=== PATIENT | female | born 1955 | race African-American/Black ===

== ENCOUNTER 2017-11-26 17:27 | Emergency (ER) | payer BC | END 2017-11-26 19:04 | disposition home or self-care (01) | LOC: ER 17:27 | DX: M25.561 Pain in right knee (principal); I10 Essential (primary) hypertension; E11.9 Type 2 diabetes mellitus without complications | CPT/HCPCS: 73564; 99284 ==

== ENCOUNTER → 2018-02-18 | Outpatient (CLI) | payer BC ==
[2017-11-26 17:32] VITALS: BP 129/62
[~2018-02-18] MED LIST: DICL100G18 TP; TRAM50TA PO
--- NOTE | 2018-02-18 13:26 | KCIC ---
Clinical Indications: History of hypertension, right carotid bruit. Exam : Carotid Duplex with Grayscale Ultrasound and Spectral and Color Doppler Analysis: PQRS Compliance Statement - Stenosis calculations for CT, MR and conventional angiography are based upon measurement of the distal ICA diameter in accordance with the NASCET methodology. Stenosis calculations for carotid ultrasound studies are derived from validated velocity criteria which are known to correlate with the NASCET methodology. Comparison study: None available. Findings: The common, internal and external carotid arteries were examined by grayscale, color and spectral Doppler ultrasound. Moderate atherosclerotic calcifications identified in the bilateral common carotid arteries and the carotid bulbs. There is moderate to severe atherosclerosis identified in the right external carotid artery. Moderate atherosclerotic calcifications identified in the bilateral internal carotid arteries. Flow in both vertebral arteries was antegrade and normal. The following are the velocities and ratios in the carotid arteries on both sides: RIGHT ICA PV: 127cm/sec RIGHT CCA PV: 80cm/sec RIGHT ICA ED: 51cm/sec RIGHT IC/CCPV: 1.38 RIGHT VERTEBRAL: antegrade flow RIGHT % STENOSIS: 50-69% LEFT ICA PV: 142cm/sec LEFT CCA PV: 93cm/sec LEFT ICA ED: 45cm/sec LEFT IC/CCPV: 1.46 LEFT VERTEBRAL: antegrade flow LEFT % STENOSIS: 50-69% <50% ICA Stenosis: PSV < 125cm/s (EDV < 40cm/s; SVR < 2.0) 50-69% ICA Stenosis: PSV < 125-229cm/s (EDV 40-99cm/s; SVR 2.0-3.9) >70% ICA Stenosis: PSV > 230cm/s (EDV >100cm/s; SVR >4.0) Increased velocity identified in the bilateral external carotid arteries measuring 423 cm/s on the right and 230 cm/s on the left. Incidental note of right thyroid nodule is identified measuring 1.2 cm. Impression: 1. Moderate atherosclerotic calcifications identified in the bilateral internal carotid arteries with 50-69% stenosis bilaterally. 2. Incidental right thyroid nodule measuring 1.2 cm. Follow-up ultrasound thyroid can be useful. Electronically signed by: Jl Lyman MD (02/18/2018 1:22 PM) [facility]
== END | disposition home or self-care (01) ==
LOC: KCIC US 12:24
PROVIDERS: ATTEND Internal Medicine
DX: I65.23 Occlusion and stenosis of bilateral carotid arteries (principal); E04.1 Nontoxic single thyroid nodule; I10 Essential (primary) hypertension; E11.9 Type 2 diabetes mellitus without complications
CPT/HCPCS: 93880

== ENCOUNTER 2018-04-09 13:44 | Inpatient (IN) | payer BC ==
[~2018-04-09] VITALS: Ht 170.2 cm; Wt 83.6 kg
[2018-04-09] MEDS ORDERED: ASPIRIN CHEWABLE 81 MG TABLET. PO ONE (15:00)
[2018-04-09] MEDS ORDERED: NITROGLYCERIN SUBLINGUAL 0.4 MG BOTTLE OF 25. SL PRN (15:00)
[2018-04-09 15:18] LABS: BASO # 0.1 x10^3/uL (0.0-0.2); BASO % 1 % (0-3); EOS # 0.1 x10^3/uL (0.0-0.7); EOS % 1 % (0-3); HEMATOCRIT 29.4 % (36.0-47.0); HEMOGLOBIN 10.1 g/dL (12.0-15.5); LYMPH # 3.6 x10^3/uL (1.0-4.8); LYMPH % 27 % (24-48); MEAN CORPUSCULAR HEMOGLOBIN 28 pg (25-35); MEAN CORPUSCULAR HGB CONC 35 g/dL (31-37); MEAN CORPUSCULAR VOLUME 82 fL (79-100); MONO % 8 % (0-9); NEUT # 8.7 x10^3uL (1.8-7.7); NEUT % 64 % (31-73); PLATELET COUNT 286 x10^3/uL (140-400); RED BLOOD COUNT 3.57 x10^6/uL (3.50-5.40); RED CELL DISTRIBUTION WIDTH 14.9 % (11.5-14.5); WHITE BLOOD COUNT 13.5 x10^3/uL (4.0-11.0)
[2018-04-09 15:31] LABS: CALCIUM 9.4 mg/dL (8.5-10.1); POTASSIUM 3.8 mmol/L (3.5-5.1)
--- NOTE | 2018-04-09 15:33 | EKG ---
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
[2018-04-09 15:34] LABS: PROTHROMBIN TIME PATIENT 12.3 SEC (11.7-14.0)
[2018-04-09 15:37] LABS: ALBUMIN 3.3 g/dL (3.4-5.0); ALBUMIN/GLOBULIN RATIO 0.8 (1.0-1.7); MAGNESIUM 1.7 mg/dL (1.8-2.4); TOTAL BILIRUBIN 0.3 mg/dL (0.2-1.0); TOTAL PROTEIN 7.4 g/dL (6.4-8.2)
--- NOTE | 2018-04-09 16:11 | RAD ---
PORTABLE CHEST 1V Clinical Indication: Left side chest pain radiating to left arm Comparison: None. Findings: The cardiomediastinal silhouette is normal. Lungs are clear. There is no pneumothorax. No pleural effusion is appreciated. No acute bone abnormality. IMPRESSION: No acute cardiopulmonary process. Electronically signed by: Alejandro Rodas MD (04/09/2018 4:07 PM) [facility]
[2018-04-09] MEDS ORDERED: MORPHINE SULFATE 10 MG/ML VIAL. IV ONE (17:00)
[2018-04-09 17:50] LABS: BILIRUBIN,URINE NEGATIVE (NEG); CLARITY,URINE CLEAR; COLOR,URINE YELLOW; NITRITE,URINE NEGATIVE (NEG); PH,URINE 6.5; PROTEIN,URINE NEGATIVE (NEG-TRACE)
[2018-04-09 17:55] LABS: BARBITURATES NEG (NEG); BENZODIAZEPINES NEG (NEG); CANNABINOIDS POS (NEG); COCAINE NEG (NEG); METHADONE NEG (NEG); OPIATES NEG (NEG); PHENCYCLIDINE NEG (NEG)
[2018-04-09 17:56] LABS: AMPHETAMINE/METHAMPHETAMINE NEG (NEG)
[2018-04-09 18:01] LABS: RBC,URINE 0 /HPF (0-2)
[2018-04-09 18:02] LABS: BACTERIA,URINE FEW /HPF (0-FEW); SQUAMOUS EPITHELIAL CELL,UR FEW /LPF
--- NOTE | 2018-04-09 18:03 | PHYS DOC ---
Past Medical History Past Medical History: Diabetes-Type I, Diabetes-Type II, High Cholesterol, Hypertension, Vascular Disease, Other Additional Past Medical Histor: Eating chocolate,"Starts allergies up." Past Surgical History: Hysterectomy, Tonsillectomy Additional Past Surgical Histo: L)Femoral bypass, L)jaw repair Additional Information: 07/16 to 07/14 PPD. Alcohol Use: Rarely Drug Use: None Adult General Chief Complaint Chief Complaint: CHEST PAIN HPI HPI Patient is a 62 year old female with history of diabetes type 2, hypertension, high cholesterol, who presents today complaining of a 9 out of 10 sharp left sided chest pain worse on coughing and deep breaths that began yesterday. Patient states the pain is relieved by not coughing as well as applying pressure to her chest when she coughs. Patient denies any pain radiating to her back. Denies any fever. She states she went to urgent care and they sent her to the ED to be evaluated. Review of Systems Review of Systems Constitutional: Denies fever or chills [] Eyes: Denies change in visual acuity, redness, or eye pain [] HENT: Denies nasal congestion or sore throat [] Respiratory: Denies cough or shortness of breath [] Cardiovascular: Reports left-sided chest pain worse on coughing and deep breaths GI: Denies abdominal pain, nausea, vomiting, bloody stools or diarrhea [] : Denies dysuria or hematuria [] Musculoskeletal: Denies back pain or joint pain [] Integument: Denies rash or skin lesions [] Neurologic: Denies headache, focal weakness or sensory changes [] All other systems were reviewed and found to be within normal limits, except as documented in this note. Current Medications Current Medications Current Medications Medications (Trade) Dose Ordered Sig/[facility] Start Time Stop Time Status Last Admin Dose Admin Aspirin (Children'S Aspirin) 162 mg 1X ONCE 04/09/18 15:00 04/09/18 15:01 DC 04/09/18 18:05 162 MG Nitroglycerin (Nitrostat) 0.4 mg PRN Q5MIN PRN 04/09/18 15:00 04/10/18 14:59 Allergies Allergies Physical Exam Physical Exam Constitutional: Well developed, well nourished, no acute distress, non-toxic appearance. [] HENT: Normocephalic, atraumatic, bilateral external ears normal, oropharynx moist, no oral exudates, nose normal. [] Eyes: PERRLA, EOMI, conjunctiva normal, no discharge. [] Neck: Normal range of motion, no tenderness, supple, no stridor. [] Cardiovascular:Heart rate regular rhythm, no murmur. Reproducible left sided chest pain on coughing and deep breaths. Lungs & Thorax: Bilateral breath sounds clear to auscultation [] Abdomen: Bowel sounds normal, soft, no tenderness, no masses, no pulsatile masses. [] Skin: Warm, dry, no erythema, no rash. [] Back: No tenderness, no CVA tenderness. [] Extremities: No tenderness, no cyanosis, no clubbing, ROM intact, no edema. [] Neurologic: Alert and oriented X 3, normal motor function, normal sensory function, no focal deficits noted. [] Psychologic: Affect normal, judgement normal, mood normal. [] Current Patient Data Vital Signs Vital Signs Date Time Temp Pulse Resp B/P (MAP) Pulse Ox O2 Delivery O2 Flow Rate FiO2 04/09/18 16:20 78 20 145/62 (89) 99 Room Air 04/09/18 14:09 98.3 98.3 Lab Values Laboratory Tests Test 04/09/18 14:30 04/09/18 15:05 Sodium Level 147 mmol/L (136-145) H Potassium Level 3.8 mmol/L (3.5-5.1) Chloride Level 107 mmol/L (98-107) Carbon Dioxide Level 28 mmol/L (21-32) Anion Gap 12 (6-14) Blood Urea Nitrogen 14 mg/dL (7-20) Creatinine 1.0 mg/dL (0.6-1.0) Estimated GFR (Cockcroft-Gault) 68.0 BUN/Creatinine Ratio 14 (6-20) Glucose Level 125 mg/dL (70-99) H Calcium Level 9.4 mg/dL (8.5-10.1) Magnesium Level 1.7 mg/dL (1.8-2.4) L Total Bilirubin 0.3 mg/dL (0.2-1.0) Aspartate Amino Transferase (AST) 16 U/L (15-37) Alanine Aminotransferase (ALT) 16 U/L (14-59) Alkaline Phosphatase 121 U/L (46-116) H Troponin I Quantitative < 0.017 ng/mL (0.000-0.055) CH-Fjx-N-Type Natriuretic Peptide 131 pg/mL (0-124) H Total Protein 7.4 g/dL (6.4-8.2) Albumin 3.3 g/dL (3.4-5.0) L Albumin/Globulin Ratio 0.8 (1.0-1.7) L White Blood Count 13.5 x10^3/uL (4.0-11.0) H Red Blood Count 3.57 x10^6/uL (3.50-5.40) Hemoglobin 10.1 g/dL (12.0-15.5) L Hematocrit 29.4 % (36.0-47.0) L Mean Corpuscular Volume 82 fL (79-100) Mean Corpuscular Hemoglobin 28 pg (25-35) Mean Corpuscular Hemoglobin Concent 35 g/dL (31-37) Red Cell Distribution Width 14.9 % (11.5-14.5) H Platelet Count 286 x10^3/uL (140-400) Neutrophils (%) (Auto) 64 % (31-73) Lymphocytes (%) (Auto) 27 % (24-48) Monocytes (%) (Auto) 8 % (0-9) Eosinophils (%) (Auto) 1 % (0-3) Basophils (%) (Auto) 1 % (0-3) Neutrophils # (Auto) 8.7 x10^3uL (1.8-7.7) H Lymphocytes # (Auto) 3.6 x10^3/uL (1.0-4.8) Monocytes # (Auto) 1.0 x10^3/uL (0.0-1.1) Eosinophils # (Auto) 0.1 x10^3/uL (0.0-0.7) Basophils # (Auto) 0.1 x10^3/uL (0.0-0.2) Prothrombin Time 12.3 SEC (11.7-14.0) Prothrombin Time INR 1.0 (0.8-1.1) Laboratory Tests 04/09/18 15:05 Laboratory Tests 04/09/18 14:30 EKG EKG 13:[address] Tavares sinus rhythm HR 81 no STEMI[] Radiology/Procedures Radiology/Procedures []PROCEDURE: PORTABLE CHEST 1V PORTABLE CHEST 1V Clinical Indication: Left side chest pain radiating to left arm Comparison: None. Findings: The cardiomediastinal silhouette is normal. Lungs are clear. There is no pneumothorax. No pleural effusion is appreciated. No acute bone abnormality. IMPRESSION: No acute cardiopulmonary process. Electronically signed by: Alejandro Rodas MD (04/09/2018 4:07 PM) [facility] DICTATED and SIGNED BY: ALEJANDRO RODAS MD DATE: 04/09/18 9220 Course & Med Decision Making Course & Med Decision Making Pertinent Labs and Imaging studies reviewed. (See chart for details) This is a 62-year-old female patient who presents to the ED today with complaints of chest pain that is worsened on deep breaths and coughing that began yesterday. Patient's cardiac workup is negative for any acute findings and place. Patient pain sound like pleuritic chest pain. Heart score [address] Savage who accepted patient for admission. Routine consult placed for cardiology. CTA Chest pending on admission. Nursing staff will contact PCP if positive or Cardiology Dragon Disclaimer Dragon Disclaimer This electronic medical record was generated, in whole or in part, using a voice recognition dictation system. Departure Departure Impression: Primary Impression: Chest pain Disposition: ADMITTED INPATIENT Condition: STABLE Referrals: JOSELO SAVAGE MD (PCP) Problem Qualifiers Primary Impression: Chest pain Chest pain type: unspecified Qualified Codes: R07.9 - Chest pain, unspecified EVI OLMEDO TITLE SUPERVISOR Apr 09, 2018 18:02
[2018-04-09] MEDS ORDERED: DEXTROSE 50% 25 GM / 50ML DISP.SYRIN. IV PRN (18:15)
[2018-04-09] MEDS ORDERED: ONDANSETRON PF 4 MG/2 ML VIAL. IV PRN (18:15)
[2018-04-09] MEDS ORDERED: ACETAMINOPHEN 325 MG TABLET. PO PRN (18:15)
[2018-04-09] MEDS ORDERED: MORPHINE SULFATE 4 MG/ML VIAL. IV PRN (18:15)
[2018-04-09] MEDS ORDERED: IOHEXOL 300 MG/ML 100ML VIAL. IV ONE (18:45)
[2018-04-09] MEDS ORDERED: MAGNESIUM SULFATE 2GM 50 ML IV ONE (19:00)
[2018-04-09] MEDS ORDERED: CONTRAST GIVEN. MC PRN (19:00)
[2018-04-09 20:17] VITALS: BP 153/66
[2018-04-09] MEDS ORDERED: INSULIN GLARGINE 300 UNITS/3 ML INSULN.PEN. SQ SCH (21:00)
[2018-04-09] MEDS ORDERED: ACET325T9 PO (21:46)
[2018-04-09] MEDS ORDERED: ASPI81TA50 PO (21:46)
[2018-04-09] MEDS ORDERED: CLOP75TA PO (21:46)
[2018-04-09] MEDS ORDERED: PRAV40TA2 PO (21:46)
[2018-04-09] MEDS ORDERED: INSU300I SQ (21:46)
[2018-04-09] MEDS ORDERED: DIPH25CA58 PO (21:46)
[2018-04-09] MEDS ORDERED: GLIM4TAB2 PO (21:46)
[2018-04-09] MEDS ORDERED: LOSA1TAB25 PO (21:46)
[2018-04-09] MEDS ORDERED: METF10007 PO (21:46)
[2018-04-09] MEDS ORDERED: TOUJEO SQ SCH ×2 (22:00)
[2018-04-09] MEDS: SIMVASTATIN 40 MG TABLET. PO SCH (22:02)
--- NOTE | 2018-04-09 22:59 | RAD ---
Chest CTA History: Chest pain Technique: After bolus of intravenous contrast, CT imaging was performed of the chest. Multiplanar reconstruction images to include MIP reconstruction images are submitted. Exposure: One or more of the following individualized dose reduction techniques were utilized for this examination: 1. Automated exposure control 2. Adjustment of the mA and/or kV according to patient size 3. Use of iterative reconstruction technique. Contrast: 75 cc Omnipaque 300 Comparison: None Findings: [ ] No convincing pulmonary embolism is identified, more distal branches as well as the upper lobe branches not as well opacified with contrast for accurate evaluation. There is more confluent left upper lobe infiltrate with air bronchograms, overall size about 4.9 cm AP by 3.2 cm transverse. There is prominent coronary calcification. Thoracic aortic caliber is within normal limits without intraluminal flap. There is no pericardial or pleural fluid or pneumothorax. Major airways are patent. There are left hilar node about 0.9 cm short axis dimension. There may be mild wall thickening of the esophagus. Impression: 1. No convincing pulmonary embolism is identified, limited evaluation of the more distal branches as well as of the upper lobe branches on this exam. 2. There is more confluent left upper lobe infiltrate. Short-term follow-up after treatment such is within 1-2 months is advised to exclude underlying lesion. 3. There is prominent coronary calcification. 4. There is possible mild esophageal wall thickening, can be associated with esophagitis. Electronically signed by: Edi Bai MD (04/09/2018 10:55 PM) [facility]
[2018-04-09 23:49] VITALS: BP 185/76
[2018-04-10] VITALS (8 sets, daily range): BP systolic 137–157; BP diastolic 54–86
[2018-04-10 06:28] LABS: BASO # 0.1 x10^3/uL (0.0-0.2); BASO % 1 % (0-3); CALCIUM 8.5 mg/dL (8.5-10.1); EOS # 0.2 x10^3/uL (0.0-0.7); EOS % 1 % (0-3); HEMATOCRIT 27.1 % (36.0-47.0); HEMOGLOBIN 9.5 g/dL (12.0-15.5); LYMPH % 27 % (24-48); MEAN CORPUSCULAR HEMOGLOBIN 29 pg (25-35); MEAN CORPUSCULAR HGB CONC 35 g/dL (31-37); MEAN CORPUSCULAR VOLUME 83 fL (79-100); MONO # 1.1 x10^3/uL (0.0-1.1); MONO % 10 % (0-9); NEUT # 6.9 x10^3uL (1.8-7.7); NEUT % 62 % (31-73); PLATELET COUNT 271 x10^3/uL (140-400); POTASSIUM 3.6 mmol/L (3.5-5.1); RED BLOOD COUNT 3.28 x10^6/uL (3.50-5.40); RED CELL DISTRIBUTION WIDTH 14.8 % (11.5-14.5); WHITE BLOOD COUNT 11.3 x10^3/uL (4.0-11.0)
[2018-04-10 06:35] LABS: MAGNESIUM 2.1 mg/dL (1.8-2.4)
[2018-04-10 06:36] LABS: CHOLESTEROL/HDL RATIO 3.8
[2018-04-10] MEDS ORDERED: INSULIN LISPRO 300 UNITS/3 ML INSULN.PEN. SQ SCH (08:00)
[2018-04-10] MEDS ORDERED: glyBURIDE 5 MG TABLET PO SCH (08:00)
[2018-04-10] MEDS ORDERED: ASPIRIN CHEWABLE 81 MG TABLET. PO SCH (08:00)
[2018-04-10] MEDS ORDERED: GLIMEPIRIDE 2 MG TABLET. PO SCH (09:00)
[2018-04-10] MEDS: LOSARTAN POTASSIUM 50 MG TABLET. PO SCH (09:32)
[2018-04-10] MEDS: CLOPIDOGREL BISULFATE 75 MG TABLET PO SCH (09:33)
[2018-04-10] MEDS: hydroCHLOROthiazide 12.5 MG CAPSULE PO SCH (09:33)
[2018-04-10] MEDS ORDERED: guaiFENesin DM 200MG/20MG 10 ML SYRUP PO PRN (10:15)
[2018-04-10] MEDS ORDERED: HYDROcodone/APAP 5/325MG 1 TAB TABLET PO PRN (10:15)
--- NOTE | 2018-04-10 10:34 | PDOC ---
Provider Note Provider Note history and physical dictated # [id number] JOSELO MAHMOOD MD Apr 10, 2018 10:34
--- NOTE | 2018-04-10 10:50 | CONS ---
DATE OF CONSULTATION: 04/09/2018 REASON FOR CONSULTATION: Chest pain. HISTORY OF PRESENT ILLNESS: The patient is a pleasant 62-year-old woman with past medical history as noted below, who presented to the ER in the setting of pain with deep inspiration. She had also been coughing and reported that the pain resolved after her coughing stopped. She denies any exertional dyspnea, orthopnea, PND or lower extremity edema. She has not had any angina. In this setting, she underwent a CT of the chest, which was suggestive of possible infiltrate, but no obvious pulmonary embolus. She was noted to have significant coronary artery calcifications. PAST MEDICAL HISTORY: 1. Peripheral arterial disease, status post left fem-pop bypass. 2. Hypertension. 3. Diabetes with last hemoglobin A1c of 6.2, according to the patient. 4. Dyslipidemia. 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 She does smoke. FAMILY HISTORY: Noncontributory. ALLERGIES: CHOCOLATE and ESTROGENS as listed. CURRENT CARDIAC MEDICATIONS: 1. Hydrochlorothiazide 12.5 mg daily. 2. Losartan 100 mg daily. 3. Aspirin 81 mg daily. 4. Plavix 75 mg daily. 5. Simvastatin 40 mg daily. REVIEW OF SYSTEMS: Negative for 10 out of 14 systems reviewed, unless otherwise mentioned above in HPI. PHYSICAL EXAMINATION: VITAL SIGNS: Afebrile, pulse 74, BP 156/76, respiratory rate 17, pulse ox 99% on room air. GENERAL: She is alert and oriented, no acute distress. HEAD AND NECK: Unremarkable except for bilateral carotid bruits. CARDIAC: Regular rate and rhythm without any murmurs, rubs or gallops. LUNGS: Fairly clear to auscultation bilaterally. ABDOMEN: Soft, nontender, nondistended. EXTREMITIES: Warm to touch bilaterally. She has 2+ radial pulses. Her femoral pulses are diminished at 1+. Popliteal pulses 1+ on the left and nonpalpable on the right. Right pedal pulses are not palpable. Left pedal pulses are 1+. NEUROLOGIC: No focal deficits. MUSCULOSKELETAL: No trauma. DIAGNOSTIC STUDIES: Troponin negative x 2. Creatinine, hemoglobin and platelets are within normal limits. LDL of 69. CT of the chest reports no significant pulmonary embolism, but significant coronary artery calcification. EKG demonstrates a sinus rhythm with probable prior septal infarct. IMPRESSION: 1. Pleuritic chest pain, noncardiac, but with multiple risk factors. 2. Peripheral arterial disease, status post left fem-pop bypass, bilateral carotid bruits with moderate disease on carotid duplex in 02/2018. 3. Hypertension. 4. Dyslipidemia. 5. Diabetes. RECOMMENDATIONS: 1. At this present time, the patient's chest pain appears to be noncardiac in nature and therefore, no further testing is warranted. --After treatment of her pneumonia and discharge, we will follow up with her on an outpatient basis and should she continue to have symptoms, could then at that time, consider ischemic evaluation as necessary. 2. Peripheral artery disease with right lower extremity claudication, discussed with Dr. Savage and we will plan for arterial Doppler study and if this is abnormal, could then at that time, consider lower extremity angiography on an outpatient basis after her pneumonia is resolved. Risk factor modification including cessation of drug abuse and routine monitoring of her blood pressure and diabetes as indicated. We will follow up with her on an outpatient basis as mentioned. We will continue to evaluate her blood pressures while she is in-house and make adjustments as necessary. Thank you for this consultation. BARBRA LAKHANI MD DR: JIMY/salma JOB#: [id number] / [id number] MED
[2018-04-10] MEDS ORDERED: AZITHROMYCIN 250 MG TABLET. PO ONE (11:00)
[2018-04-10] MEDS: LACTOBACILLUS RHAMNOSUS GG 1 CAPSULE. PO SCH ×2 (11:14→22:05)
[2018-04-10] MEDS: amLODIPine BESYLATE 5 MG TABLET PO SCH (11:15)
[2018-04-10] MEDS: ASPIRIN CHEWABLE 81 MG TABLET. PO SCH (11:16)
[2018-04-10] MEDS: cefTRIAXone IV Push 1 GM VIAL. IVP SCH (11:17)
--- NOTE | 2018-04-10 11:33 | HP ---
ADMIT DATE: 04/10/2018 LOCATION: Room 263 HISTORY OF PRESENT ILLNESS: The patient is a 62-year-old female with history of diabetes mellitus type 2 on insulin, hypertension, hyperlipidemia, peripheral arterial disease, who has had a previous left lower extremity arterial bypass procedure and does have moderate bilateral carotid artery stenosis and a recent carotid Doppler for evaluation of right carotid bruit, went to an urgent care facility yesterday with a 4-day history of a nonproductive cough and a 1-day history of pleuritic pain in the left anterior chest, which is improved when she holds her chest and is a sharp pain. She denies any fever, chills, sweats or hemoptysis. She does smoke about 6 cigarettes a day, which is less than what she normally smokes. She was not seen in the urgent care apparently and was sent to the [facility] Emergency Room where she was evaluated yesterday. She had a chest x-ray done, which was unremarkable and then had a CAT scan and a chest angiogram done that showed a confluent left upper lobe lung infiltrate with air bronchograms about 4.9 x 3.2 cm. She had prominent coronary artery calcifications. There was no pericardial or pleural fluid and/or pneumothorax. There was a left hilar node measuring about 0.9 cm and she had some mild wall thickening of the esophagus, which could be associated with esophagitis. There was no evidence of a pulmonary embolus on the CAT scan and chest angiogram. Her D-dimer was normal. She was subsequently admitted to the hospital for evaluation. She still has a dry cough this morning and has to splint her chest on the left side to help alleviate the pain. ALLERGIES AND INTOLERANCES: TO ESTROGEN, AN ESTROGEN PATCH CAUSED HER TO HAVE NAUSEA AND VOMITING IN THE PAST. MEDICATIONS: Prior to admission include Plavix 75 mg every day, aspirin 162 mg every day, glimepiride 4 mg b.i.d., metformin 1000 mg b.i.d., Toujeo 30 units at bedtime, pravastatin 40 mg every day, losartan HCT 100/12.5 mg every day. PAST MEDICAL HISTORY: Significant for diabetes mellitus type 2 on insulin, hypertension, hyperlipidemia, peripheral arterial disease. She has had a left lower extremity arterial bypass in 2007, hysterectomy, tonsillectomy. Hemoglobin A1c was 6.1 on 02/27/2018. Recent bilateral carotid Doppler showed moderate 50-69% stenosis of the bilateral carotid arteries for evaluation of a right carotid bruit. She has not had any transient ischemic attacks. SOCIAL HISTORY: She does not drink alcohol and she smokes about 6 cigarettes a day recently, which has decreased from her usual amount. 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 FAMILY HISTORY: Not contributory. REVIEW OF SYSTEMS: GENERAL: There has been no fever, chills or sweats in the last 3 days. CARDIOVASCULAR: She has got some chest wall pain noted on the left side when she coughs, which is pleuritic in nature. When she takes a deep breath it starts her to cough. GASTROINTESTINAL: No diarrhea. ENDOCRINE: She has diabetes mellitus. Rest of systems reviewed are negative except as stated in history of present illness. PHYSICAL EXAMINATION: VITAL SIGNS: Temperature is 98.5 degrees, apical pulse 74, respiratory rate is 18, blood pressure is 156/76, oxygen saturation 99% on room air. HEENT: Eyes: Gaze is conjugate. Mouth: Tongue is midline. NECK: There is no cervical lymphadenopathy or thyroid enlargement. HEART: Reveals an S1, S2. There is no S3 or murmur. LUNGS: Clear. ABDOMEN: Soft with no hepatosplenomegaly, masses or tenderness. EXTREMITIES: Lower extremities without edema. Examination of her left foot shows she has got 2+ dorsalis pedis pulse on the left, and I could not feel any pedal pulses on the right, but the right foot is warm. SKIN: No rashes. NEUROLOGIC: Revealed no focal weakness of extremities or facial asymmetry. LABORATORY DATA: Her white count was elevated at 13.5 yesterday and is 11.3 this morning, hemoglobin 10.1, is now 9.5 with an MCV of 83, platelet count is 371,000. She has 66 polys and 27 lymphocytes. Her INR was 1.0 and D-dimer was 0.37. Serum sodium 144, potassium 3.6, chloride 106, total CO2 of 29, BUN 10, creatinine 1.0 and her fingerstick blood sugar today was 134, was 314 at bedtime and she had a lot of junk food last night. Troponin level is negative x 2. Her cholesterol is 117, triglycerides 86, HDL was 31, LDL cholesterol was 69. Urinalysis was unremarkable with 1-4 white cells. Urine drug screen was positive for cannabinoid. EKG showed normal sinus rhythm with nonspecific ST-T wave changes. CAT scan and chest x-rays as stated above. ASSESSMENT: 1. Confluent left upper lobe infiltrate with air bronchograms with a recent cough and some pleuritic chest pain in left anterior chest, most likely consistent with pneumonia. 2. Pleuritic pain secondary to the pneumonia. 3. Diabetes mellitus type 2, on insulin. 4. Hypertension. 5. Hyperlipidemia. 6. Peripheral arterial disease with a history of revascularization of the left lower extremity in 2007. 7. Coronary artery calcifications noted on the CAT scan of the chest. 8. Anemia. PLAN: The patient will be seen by Dr. Heath for Cardiology consultation. Chest pain sounds noncardiac, but she does have coronary artery calcifications. I discussed the case briefly with Dr. Heath before he saw her this morning. We will consult Dr. Lozada for the left upper lobe lung infiltrate and possible pneumonia. We will start her on IV Rocephin and Zithromax. Obtain a sputum culture if she is able to produce any sputum. Order some p.r.n. hydrocodone and cough syrup p.r.n. for her cough. In addition, we will obtain an arterial Doppler of the right lower extremity. We will also obtain iron studies, B12 studies tomorrow and stool Hemoccult studies. We will continue with her home medications, but lower her dose of insulin to 15 units of the Toujeo at night and her is going to bring it from home. She only received 12 units of the Toujeo last night as she ran out of it. We will continue with her current medications. JOSELO MAHMOOD MD DR: TITO/salma JOB#: [id number] / [id number]
[2018-04-10] MEDS: INSULIN LISPRO 300 UNITS/3 ML INSULN.PEN. SQ SCH ×2 (12:00→17:58)
[2018-04-10] MEDS: IPRATRPIUM/ALBUTEROL 0.5/2.5MG 3 ML NEBU. NEB SCH ×3 (12:04→20:31)
--- NOTE | 2018-04-10 14:43 | PDOC ---
PULMONARY PROGRESS NOTES Vitals Vital Signs Date Time Temp Pulse Resp B/P (MAP) Pulse Ox O2 Delivery O2 Flow Rate FiO2 04/10/18 12:06 99 Room Air 04/10/18 11:15 74 156/76 04/10/18 11:00 98.4 98.4 04/10/18 03:00 17 Labs Laboratory Tests Test 04/09/18 14:30 04/09/18 15:05 04/09/18 17:00 04/09/18 18:14 Sodium Level 147 mmol/L (136-145) Potassium Level 3.8 mmol/L (3.5-5.1) Chloride Level 107 mmol/L (98-107) Carbon Dioxide Level 28 mmol/L (21-32) Anion Gap 12 (6-14) Blood Urea Nitrogen 14 mg/dL (7-20) Creatinine 1.0 mg/dL (0.6-1.0) Estimated GFR (Cockcroft-Gault) 68.0 BUN/Creatinine Ratio 14 (6-20) Glucose Level 125 mg/dL (70-99) Calcium Level 9.4 mg/dL (8.5-10.1) Magnesium Level 1.7 mg/dL (1.8-2.4) Total Bilirubin 0.3 mg/dL (0.2-1.0) Aspartate Amino Transf (AST/SGOT) 16 U/L (15-37) Alanine Aminotransferase (ALT/SGPT) 16 U/L (14-59) Alkaline Phosphatase 121 U/L (46-116) Troponin I Quantitative < 0.017 ng/mL (0.000-0.055) DC-Lhj-X-Type Natriuretic Peptide 131 pg/mL (0-124) Total Protein 7.4 g/dL (6.4-8.2) Albumin 3.3 g/dL (3.4-5.0) Albumin/Globulin Ratio 0.8 (1.0-1.7) White Blood Count 13.5 x10^3/uL (4.0-11.0) Red Blood Count 3.57 x10^6/uL (3.50-5.40) Hemoglobin 10.1 g/dL (12.0-15.5) Hematocrit 29.4 % (36.0-47.0) Mean Corpuscular Volume 82 fL (79-100) Mean Corpuscular Hemoglobin 28 pg (25-35) Mean Corpuscular Hemoglobin Concent 35 g/dL (31-37) Red Cell Distribution Width 14.9 % (11.5-14.5) Platelet Count 286 x10^3/uL (140-400) Neutrophils (%) (Auto) 64 % (31-73) Lymphocytes (%) (Auto) 27 % (24-48) Monocytes (%) (Auto) 8 % (0-9) Eosinophils (%) (Auto) 1 % (0-3) Basophils (%) (Auto) 1 % (0-3) Neutrophils # (Auto) 8.7 x10^3uL (1.8-7.7) Lymphocytes # (Auto) 3.6 x10^3/uL (1.0-4.8) Monocytes # (Auto) 1.0 x10^3/uL (0.0-1.1) Eosinophils # (Auto) 0.1 x10^3/uL (0.0-0.7) Basophils # (Auto) 0.1 x10^3/uL (0.0-0.2) Prothrombin Time 12.3 SEC (11.7-14.0) Prothromb Time International Ratio 1.0 (0.8-1.1) Urine Collection Type Unknown Urine Color Yellow Urine Clarity Clear Urine pH 6.5 Urine Specific [place] 1.010 Urine Protein Negative mg/dL (NEG-TRACE) Urine Glucose (UA) Negative mg/dL (NEG) Urine Ketones (Stick) Negative mg/dL (NEG) Urine Blood Negative (NEG) Urine Nitrite Negative (NEG) Urine Bilirubin Negative (NEG) Urine Urobilinogen Dipstick 1.0 mg/dL (0.2 mg/dL) Urine Leukocyte Esterase Negative (NEG) Urine RBC 0 /HPF (0-2) Urine WBC 1-4 /HPF (0-4) Urine Squamous Epithelial Cells Few /LPF Urine Bacteria Few /HPF (0-FEW) Urine Opiates Screen Neg (NEG) Urine Methadone Screen Neg (NEG) Urine Barbiturates Neg (NEG) Urine Phencyclidine Screen Neg (NEG) Urine Amphetamine/Methamphetamine Neg (NEG) Urine Benzodiazepines Screen Neg (NEG) Urine Cocaine Screen Neg (NEG) Urine Cannabinoids Screen Pos (NEG) Urine Ethyl Alcohol Neg (NEG) Glucose (Fingerstick) 131 mg/dL (70-99) Test 04/09/18 20:33 04/09/18 22:00 04/10/18 05:45 04/10/18 08:26 Glucose (Fingerstick) 314 mg/dL (70-99) 134 mg/dL (70-99) Troponin I Quantitative < 0.017 ng/mL (0.000-0.055) White Blood Count 11.3 x10^3/uL (4.0-11.0) Red Blood Count 3.28 x10^6/uL (3.50-5.40) Hemoglobin 9.5 g/dL (12.0-15.5) Hematocrit 27.1 % (36.0-47.0) Mean Corpuscular Volume 83 fL (79-100) Mean Corpuscular Hemoglobin 29 pg (25-35) Mean Corpuscular Hemoglobin Concent 35 g/dL (31-37) Red Cell Distribution Width 14.8 % (11.5-14.5) Platelet Count 271 x10^3/uL (140-400) Neutrophils (%) (Auto) 62 % (31-73) Lymphocytes (%) (Auto) 27 % (24-48) Monocytes (%) (Auto) 10 % (0-9) Eosinophils (%) (Auto) 1 % (0-3) Basophils (%) (Auto) 1 % (0-3) Neutrophils # (Auto) 6.9 x10^3uL (1.8-7.7) Lymphocytes # (Auto) 3.0 x10^3/uL (1.0-4.8) Monocytes # (Auto) 1.1 x10^3/uL (0.0-1.1) Eosinophils # (Auto) 0.2 x10^3/uL (0.0-0.7) Basophils # (Auto) 0.1 x10^3/uL (0.0-0.2) D-Dimer ([place]) 0.37 ug/mlFEU (0.00-0.50) Sodium Level 144 mmol/L (136-145) Potassium Level 3.6 mmol/L (3.5-5.1) Chloride Level 106 mmol/L (98-107) Carbon Dioxide Level 29 mmol/L (21-32) Anion Gap 9 (6-14) Blood Urea Nitrogen 10 mg/dL (7-20) Creatinine 1.0 mg/dL (0.6-1.0) Estimated GFR (Cockcroft-Gault) 68.0 Glucose Level 113 mg/dL (70-99) Calcium Level 8.5 mg/dL (8.5-10.1) Magnesium Level 2.1 mg/dL (1.8-2.4) Triglycerides Level 86 mg/dL (0-150) Cholesterol Level 117 mg/dL (0-200) LDL Cholesterol, Calculated 69 mg/dL (0-100) VLDL Cholesterol, Calculated 17 mg/dL (0-40) Non-HDL Cholesterol Calculated 86 mg/dL (0-129) HDL Cholesterol 31 mg/dL (40-60) Cholesterol/HDL Ratio 3.8 Test 04/10/18 11:33 Glucose (Fingerstick) 86 mg/dL (70-99) Laboratory Tests Test 04/09/18 15:05 04/09/18 17:00 04/09/18 18:14 04/09/18 20:33 White Blood Count 13.5 x10^3/uL (4.0-11.0) Red Blood Count 3.57 x10^6/uL (3.50-5.40) Hemoglobin 10.1 g/dL (12.0-15.5) Hematocrit 29.4 % (36.0-47.0) Mean Corpuscular Volume 82 fL (79-100) Mean Corpuscular Hemoglobin 28 pg (25-35) Mean Corpuscular Hemoglobin Concent 35 g/dL (31-37) Red Cell Distribution Width 14.9 % (11.5-14.5) Platelet Count 286 x10^3/uL (140-400) Neutrophils (%) (Auto) 64 % (31-73) Lymphocytes (%) (Auto) 27 % (24-48) Monocytes (%) (Auto) 8 % (0-9) Eosinophils (%) (Auto) 1 % (0-3) Basophils (%) (Auto) 1 % (0-3) Neutrophils # (Auto) 8.7 x10^3uL (1.8-7.7) Lymphocytes # (Auto) 3.6 x10^3/uL (1.0-4.8) Monocytes # (Auto) 1.0 x10^3/uL (0.0-1.1) Eosinophils # (Auto) 0.1 x10^3/uL (0.0-0.7) Basophils # (Auto) 0.1 x10^3/uL (0.0-0.2) Prothrombin Time 12.3 SEC (11.7-14.0) Prothromb Time International Ratio 1.0 (0.8-1.1) Urine Collection Type Unknown Urine Color Yellow Urine Clarity Clear Urine pH 6.5 Urine Specific [place] 1.010 Urine Protein Negative mg/dL (NEG-TRACE) Urine Glucose (UA) Negative mg/dL (NEG) Urine Ketones (Stick) Negative mg/dL (NEG) Urine Blood Negative (NEG) Urine Nitrite Negative (NEG) Urine Bilirubin Negative (NEG) Urine Urobilinogen Dipstick 1.0 mg/dL (0.2 mg/dL) Urine Leukocyte Esterase Negative (NEG) Urine RBC 0 /HPF (0-2) Urine WBC 1-4 /HPF (0-4) Urine Squamous Epithelial Cells Few /LPF Urine Bacteria Few /HPF (0-FEW) Urine Opiates Screen Neg (NEG) Urine Methadone Screen Neg (NEG) Urine Barbiturates Neg (NEG) Urine Phencyclidine Screen Neg (NEG) Urine Amphetamine/Methamphetamine Neg (NEG) Urine Benzodiazepines Screen Neg (NEG) Urine Cocaine Screen Neg (NEG) Urine Cannabinoids Screen Pos (NEG) Urine Ethyl Alcohol Neg (NEG) Glucose (Fingerstick) 131 mg/dL (70-99) 314 mg/dL (70-99) Test 04/09/18 22:00 04/10/18 05:45 04/10/18 08:26 04/10/18 11:33 Troponin I Quantitative < 0.017 ng/mL (0.000-0.055) White Blood Count 11.3 x10^3/uL (4.0-11.0) Red Blood Count 3.28 x10^6/uL (3.50-5.40) Hemoglobin 9.5 g/dL (12.0-15.5) Hematocrit 27.1 % (36.0-47.0) Mean Corpuscular Volume 83 fL (79-100) Mean Corpuscular Hemoglobin 29 pg (25-35) Mean Corpuscular Hemoglobin Concent 35 g/dL (31-37) Red Cell Distribution Width 14.8 % (11.5-14.5) Platelet Count 271 x10^3/uL (140-400) Neutrophils (%) (Auto) 62 % (31-73) Lymphocytes (%) (Auto) 27 % (24-48) Monocytes (%) (Auto) 10 % (0-9) Eosinophils (%) (Auto) 1 % (0-3) Basophils (%) (Auto) 1 % (0-3) Neutrophils # (Auto) 6.9 x10^3uL (1.8-7.7) Lymphocytes # (Auto) 3.0 x10^3/uL (1.0-4.8) Monocytes # (Auto) 1.1 x10^3/uL (0.0-1.1) Eosinophils # (Auto) 0.2 x10^3/uL (0.0-0.7) Basophils # (Auto) 0.1 x10^3/uL (0.0-0.2) D-Dimer ([place]) 0.37 ug/mlFEU (0.00-0.50) Sodium Level 144 mmol/L (136-145) Potassium Level 3.6 mmol/L (3.5-5.1) Chloride Level 106 mmol/L (98-107) Carbon Dioxide Level 29 mmol/L (21-32) Anion Gap 9 (6-14) Blood Urea Nitrogen 10 mg/dL (7-20) Creatinine 1.0 mg/dL (0.6-1.0) Estimated GFR (Cockcroft-Gault) 68.0 Glucose Level 113 mg/dL (70-99) Calcium Level 8.5 mg/dL (8.5-10.1) Magnesium Level 2.1 mg/dL (1.8-2.4) Triglycerides Level 86 mg/dL (0-150) Cholesterol Level 117 mg/dL (0-200) LDL Cholesterol, Calculated 69 mg/dL (0-100) VLDL Cholesterol, Calculated 17 mg/dL (0-40) Non-HDL Cholesterol Calculated 86 mg/dL (0-129) HDL Cholesterol 31 mg/dL (40-60) Cholesterol/HDL Ratio 3.8 Glucose (Fingerstick) 134 mg/dL (70-99) 86 mg/dL (70-99) Medications Active Scripts Medications Dose Route/Sig Max Daily Dose Days Date Category Benadryl (Diphenhydramine Hcl) 25 Mg Capsule 1 Cap PO PRN BID PRN 04/09/18 Reported Tylenol (Acetaminophen) 325 Mg Tablet 2 Tab PO PRN Q4HRS 04/09/18 Reported Aspir-Low (Aspirin) 81 Mg Tablet.dr 1 Tab PO DAILY 04/09/18 Reported Touralph Solostar (Insulin Glargine,Hum.rec.anlog) 300 Unit/1 Ml Insuln.pen 30 Unit SQ HS 04/09/18 Reported Losartan-Hctz 100-12.5 Mg Tab (Losartan/Hydrochlorothiazide) 1 Each Tablet 1 Tab PO DAILY 04/09/18 Reported Glimepiride 4 Mg Tablet 4 Mg PO BID 04/09/18 Reported Pravastatin Sodium 40 Mg Tablet 40 Mg PO DAILY 04/09/18 Reported Clopidogrel (Clopidogrel Bisulfate) 75 Mg Tablet 75 Mg PO DAILY 04/09/18 Reported Metformin Hcl 1,000 Mg Tablet 1,000 Mg PO BID 04/09/18 Reported Impression . FULL CONSULT DICTATED PNEUMONIA/PLEURISY WILL NEED A CT IN W MONTHS THANKS YANA GARCIA MD Apr 10, 2018 14:43
[2018-04-10] MEDS ORDERED: KETOROLAC 15 MG/ML VIAL. IV PRN (14:45)
--- NOTE | 2018-04-10 14:59 | RAD ---
Examination: Ultrasound right lower extremity arterial duplex HISTORY: History of peripheral arterial disease, claudication COMPARISON: None available Technique: Grayscale, color Doppler 2-D, spectral waveform analysis of the right lower extremity arterial system were performed. FINDINGS: The velocity in the : common femoral artery is 215 cm/s Deep femoral artery 396 cm/s. Proximal superficial femoral artery 224 cm/s Mid superficial femoral artery 95 cm/s. Distal superficial femoral artery 65 cm/s. Popliteal artery 41 cm/s. Proximal [employer]ER 60 cm/s. Peroneal artery 40 cm/sec. Anterior tibialis artery 64 cm/s. Dorsalis pedis artery 19 cm/s. Atherosclerotic plaque identified throughout the right lower extremity arterial system. Monophasic waveform identified throughout the right lower extremity arterial system. IMPRESSION: 1. About 90 percent stenosis identified in the deep femoral artery. 50-75 percent stenosis identified in the right common femoral artery and the proximal superficial femoral artery. Electronically signed by: Jl Lyman MD (04/10/2018 2:55 PM) [facility]
[2018-04-10] MEDS ORDERED: methylPREDNISolone SOD SUCC PF 125 MG/2 ML VIAL. IV ONE (15:00)
[2018-04-10] MEDS: GLIMEPIRIDE 2 MG TABLET. PO SCH (16:31)
[2018-04-10] MEDS ORDERED: NON FORMULARY ITEM SQ SCH (21:00)
[2018-04-10] MEDS: SIMVASTATIN 40 MG TABLET. PO SCH (22:05)
[2018-04-10] MEDS ORDERED: INSULIN LISPRO 300 UNITS/3 ML INSULN.PEN. SQ ONE (22:30)
--- NOTE | 2018-04-10 23:27 | CONS ---
DATE OF CONSULTATION: 04/10/2018 ATTENDING PHYSICIAN: Ruddy Savage M.D. REASON FOR CONSULTATION: The patient seen in Pulmonary consultation at the request of Dr. Savage for abnormal CT chest. HISTORY OF PRESENT ILLNESS: The patient is a 62-year old who presented as a consequence of not being able to take a deep breath, increasing shortness of breath over the last 2-3 days, cough productive of some discolored sputum. She does smoke. She does not carry a diagnosis of COPD, uses no oxygen and no metered dose inhalers at home. She used to see Dr. Tavares. She indicates that she has not been treated for COPD or pneumonia in the past 2-3 years. The patient was evaluated in the Emergency Department. CT chest was obtained. I reviewed the CT. There is no evidence of pulmonary emboli. There is evidence of a left upper lobe infiltrate with some air bronchograms. There is a left hilar node that measured approximately 0.9 cm. PAST MEDICAL HISTORY: 1. Tobacco dependence. 2. Peripheral vascular disease, status post left femoral popliteal bypass. 3. Hypertension. 2. Type 2 diabetes. 4. Dyslipidemia. 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 Denies any alcohol, tobacco, although her toxicology screen was positive for marijuana. FAMILY HISTORY: No family history of asthma or lung cancer. ALLERGIES: To CHOCOLATE and ESTROGEN. CURRENT MEDICATIONS: List was reviewed. REVIEW OF SYSTEMS: CONSTITUTIONAL: No fever or chills. EYES: No change in visual acuity. HEAD, EARS, NOSE AND THROAT: No nasal congestion or sore throat. PULMONARY: As indicated above. CARDIOVASCULAR: As indicated above. GASTROINTESTINAL: No nausea, vomiting or diarrhea. GENITOURINARY: No dysuria or frequency. MUSCULOSKELETAL: No localized muscle aches or joint pains. SKIN: No new skin rashes. NEUROLOGICAL: No headaches, diplopia or blurred vision. PHYSICAL EXAMINATION: VITAL SIGNS: Stable. O2 saturation was greater than 92%, currently on room air. HEENT: Eyes, the sclerae were nonicteric. NECK: Jugular venous distention was not elevated. No lymphadenopathy. CHEST: Full expansion. LUNGS: Adequate air flow with no wheezes. CARDIOVASCULAR: Regular rate and rhythm with S1 and S2. No S3. ABDOMEN: Soft, nontender and nondistended. EXTREMITIES: No clubbing, cyanosis or edema. NEUROLOGICAL: The patient was awake, alert and following commands. A detailed neuro exam was not performed. LABORATORY DATA: Labs were reviewed. White count was elevated. INR was 1.0. Electrolytes were normal. BUN and creatinine was normal. Albumin upon admission was low. UA was noted. Drug screen was positive for cannabinoid. IMPRESSION: 1. Abnormal CT chest revealing left upper lobe consolidation with air bronchogram compatible with pneumonia, gram negative. 2. Tobacco dependence. 3. Acute exacerbation of chronic obstructive pulmonary disease. 4. Pleurisy. 5. Mild protein malnutrition, present upon admission. 6. Positive drug screen for marijuana. 7. Peripheral vascular disease. PLAN: 1. Continue current antibiotics. 2. Nonsteroidals for the pleurisy. 3. The patient instructed on the importance of discontinuing tobacco use. 4. Follow Cardiology input. 5. Followup in this Outpatient Department with a repeat CT in 2 months. 6. Monitor blood sugars while on steroids. 7. Dr. Savage, I do appreciate the privilege in sharing in the patient's care. YANA GARCIA MD DR: VIKTOR/salma JOB#: [id number] / [id number]
[2018-04-11 03:00] VITALS: BP 154/82
[2018-04-11 07:00] VITALS: BP 117/62
[2018-04-11] MEDS: IPRATRPIUM/ALBUTEROL 0.5/2.5MG 3 ML NEBU. NEB SCH ×4 (07:50→20:21)
[2018-04-11] MEDS: INSULIN LISPRO 300 UNITS/3 ML INSULN.PEN. SQ SCH ×3 (08:37→17:00)
[2018-04-11] MEDS: LACTOBACILLUS RHAMNOSUS GG 1 CAPSULE. PO SCH ×2 (08:39→21:18)
[2018-04-11] MEDS: AZITHROMYCIN 250 MG TABLET. PO SCH (08:39)
[2018-04-11] MEDS: hydroCHLOROthiazide 12.5 MG CAPSULE PO SCH (08:40)
[2018-04-11] MEDS: ASPIRIN CHEWABLE 81 MG TABLET. PO SCH (08:41)
[2018-04-11] MEDS: CLOPIDOGREL BISULFATE 75 MG TABLET PO SCH (08:41)
[2018-04-11] MEDS: GLIMEPIRIDE 2 MG TABLET. PO SCH ×2 (08:42→17:37)
[2018-04-11] MEDS: amLODIPine BESYLATE 5 MG TABLET PO SCH (08:43)
[2018-04-11] MEDS: LOSARTAN POTASSIUM 50 MG TABLET. PO SCH (08:44)
[2018-04-11] MEDS ORDERED: methylPREDNISolone SOD SUCC PF 125 MG/2 ML VIAL. IV SCH (09:00)
[2018-04-11 11:00] VITALS: BP 149/74
--- NOTE | 2018-04-11 11:03 | PDOC ---
PROGRESS NOTES Subjective Subjective feels better with less chest pain with dry cough. blood sugars high on iv solumedrol which will be discontinued arterial doppler RLE shows 90% stenosis of deep femoral artery and 50 to 75% of right common femoral artery and right SFA. will consult dr Joyce. she will need to quit smoking . iron studies consistent with anemia of chronic disease Objective Objective Vital Signs Date Time Temp Pulse Resp B/P (MAP) Pulse Ox O2 Delivery O2 Flow Rate FiO2 04/11/18 08:44 82 154/82 04/11/18 07:51 100 Room Air 04/11/18 07:00 98.5 18 98.5 Intake and Output 04/11/18 07:00 Intake Total 1180 ml Output Total 1000 ml Balance 180 ml Intake Oral 1180 ml Output Urine Total 1000 ml # Voids 8 Physical Exam Abdomen: Soft Heart: Regular rate, Normal S1, Normal S2 Extremities: No edema General: Alert HEENT: Atraumatic Lungs: Clear to auscultation Neuro: Normal speech Psych/Mental Status: Mental status NL Skin: No rashes Assessment Assessment Problems1. Confluent left upper lobe infiltrate with air bronchograms with a recent cough and some pleuritic chest pain in left anterior chest, most likely consistent with pneumonia. 2. Pleuritic pain secondary to the pneumonia. improved 3. Diabetes mellitus type 2, on insulin. 4. Hypertension. 5. Hyperlipidemia. 6. Peripheral arterial disease with a history of revascularization of the left lower extremity in 2007. severe PAD RLE with claudication 7. Coronary artery calcifications noted on the CAT scan of the chest. 8. Anemia of chronic disease polysubstance abuse. cigarettes and marijuana Medical Problems: (1) Pleurisy Status: Acute Plan Plan of Care consult dr. Joyce continue aspirin and plavix smoking cessation continue iv rocephin and zithromax continue nebulizer rx d/c iv solumedrol continue amlodipine and losartan and hctz increase Toujeo and resume metformin tonight and continue glimepiride Comment Review of Relevant I have reviewed the following items ranjan (where applicable) has been applied. Labs Laboratory Tests Test 04/09/18 14:30 04/09/18 15:05 04/09/18 17:00 04/09/18 18:14 Sodium Level 147 mmol/L (136-145) Potassium Level 3.8 mmol/L (3.5-5.1) Chloride Level 107 mmol/L (98-107) Carbon Dioxide Level 28 mmol/L (21-32) Anion Gap 12 (6-14) Blood Urea Nitrogen 14 mg/dL (7-20) Creatinine 1.0 mg/dL (0.6-1.0) Estimated GFR (Cockcroft-Gault) 68.0 BUN/Creatinine Ratio 14 (6-20) Glucose Level 125 mg/dL (70-99) Calcium Level 9.4 mg/dL (8.5-10.1) Magnesium Level 1.7 mg/dL (1.8-2.4) Total Bilirubin 0.3 mg/dL (0.2-1.0) Aspartate Amino Transf (AST/SGOT) 16 U/L (15-37) Alanine Aminotransferase (ALT/SGPT) 16 U/L (14-59) Alkaline Phosphatase 121 U/L (46-116) Troponin I Quantitative < 0.017 ng/mL (0.000-0.055) [id number]-M-Type Natriuretic Peptide 131 pg/mL (0-124) Total Protein 7.4 g/dL (6.4-8.2) Albumin 3.3 g/dL (3.4-5.0) Albumin/Globulin Ratio 0.8 (1.0-1.7) White Blood Count 13.5 x10^3/uL (4.0-11.0) Red Blood Count 3.57 x10^6/uL (3.50-5.40) Hemoglobin 10.1 g/dL (12.0-15.5) Hematocrit 29.4 % (36.0-47.0) Mean Corpuscular Volume 82 fL (79-100) Mean Corpuscular Hemoglobin 28 pg (25-35) Mean Corpuscular Hemoglobin Concent 35 g/dL (31-37) Red Cell Distribution Width 14.9 % (11.5-14.5) Platelet Count 286 x10^3/uL (140-400) Neutrophils (%) (Auto) 64 % (31-73) Lymphocytes (%) (Auto) 27 % (24-48) Monocytes (%) (Auto) 8 % (0-9) Eosinophils (%) (Auto) 1 % (0-3) Basophils (%) (Auto) 1 % (0-3) Neutrophils # (Auto) 8.7 x10^3uL (1.8-7.7) Lymphocytes # (Auto) 3.6 x10^3/uL (1.0-4.8) Monocytes # (Auto) 1.0 x10^3/uL (0.0-1.1) Eosinophils # (Auto) 0.1 x10^3/uL (0.0-0.7) Basophils # (Auto) 0.1 x10^3/uL (0.0-0.2) Prothrombin Time 12.3 SEC (11.7-14.0) Prothromb Time International Ratio 1.0 (0.8-1.1) Urine Collection Type Unknown Urine Color Yellow Urine Clarity Clear Urine pH 6.5 Urine Specific [place] 1.010 Urine Protein Negative mg/dL (NEG-TRACE) Urine Glucose (UA) Negative mg/dL (NEG) Urine Ketones (Stick) Negative mg/dL (NEG) Urine Blood Negative (NEG) Urine Nitrite Negative (NEG) Urine Bilirubin Negative (NEG) Urine Urobilinogen Dipstick 1.0 mg/dL (0.2 mg/dL) Urine Leukocyte Esterase Negative (NEG) Urine RBC 0 /HPF (0-2) Urine WBC 1-4 /HPF (0-4) Urine Squamous Epithelial Cells Few /LPF Urine Bacteria Few /HPF (0-FEW) Urine Opiates Screen Neg (NEG) Urine Methadone Screen Neg (NEG) Urine Barbiturates Neg (NEG) Urine Phencyclidine Screen Neg (NEG) Urine Amphetamine/Methamphetamine Neg (NEG) Urine Benzodiazepines Screen Neg (NEG) Urine Cocaine Screen Neg (NEG) Urine Cannabinoids Screen Pos (NEG) Urine Ethyl Alcohol Neg (NEG) Glucose (Fingerstick) 131 mg/dL (70-99) Test 04/09/18 20:33 04/09/18 22:00 04/10/18 05:45 04/10/18 08:26 Glucose (Fingerstick) 314 mg/dL (70-99) 134 mg/dL (70-99) Troponin I Quantitative < 0.017 ng/mL (0.000-0.055) White Blood Count 11.3 x10^3/uL (4.0-11.0) Red Blood Count 3.28 x10^6/uL (3.50-5.40) Hemoglobin 9.5 g/dL (12.0-15.5) Hematocrit 27.1 % (36.0-47.0) Mean Corpuscular Volume 83 fL (79-100) Mean Corpuscular Hemoglobin 29 pg (25-35) Mean Corpuscular Hemoglobin Concent 35 g/dL (31-37) Red Cell Distribution Width 14.8 % (11.5-14.5) Platelet Count 271 x10^3/uL (140-400) Neutrophils (%) (Auto) 62 % (31-73) Lymphocytes (%) (Auto) 27 % (24-48) Monocytes (%) (Auto) 10 % (0-9) Eosinophils (%) (Auto) 1 % (0-3) Basophils (%) (Auto) 1 % (0-3) Neutrophils # (Auto) 6.9 x10^3uL (1.8-7.7) Lymphocytes # (Auto) 3.0 x10^3/uL (1.0-4.8) Monocytes # (Auto) 1.1 x10^3/uL (0.0-1.1) Eosinophils # (Auto) 0.2 x10^3/uL (0.0-0.7) Basophils # (Auto) 0.1 x10^3/uL (0.0-0.2) D-Dimer ([place]) 0.37 ug/mlFEU (0.00-0.50) Sodium Level 144 mmol/L (136-145) Potassium Level 3.6 mmol/L (3.5-5.1) Chloride Level 106 mmol/L (98-107) Carbon Dioxide Level 29 mmol/L (21-32) Anion Gap 9 (6-14) Blood Urea Nitrogen 10 mg/dL (7-20) Creatinine 1.0 mg/dL (0.6-1.0) Estimated GFR (Cockcroft-Gault) 68.0 Glucose Level 113 mg/dL (70-99) Calcium Level 8.5 mg/dL (8.5-10.1) Magnesium Level 2.1 mg/dL (1.8-2.4) Triglycerides Level 86 mg/dL (0-150) Cholesterol Level 117 mg/dL (0-200) LDL Cholesterol, Calculated 69 mg/dL (0-100) VLDL Cholesterol, Calculated 17 mg/dL (0-40) Non-HDL Cholesterol Calculated 86 mg/dL (0-129) HDL Cholesterol 31 mg/dL (40-60) Cholesterol/HDL Ratio 3.8 Test 04/10/18 11:33 04/10/18 17:33 04/10/18 18:20 04/10/18 20:57 Glucose (Fingerstick) 86 mg/dL (70-99) 198 mg/dL (70-99) 473 mg/dL (70-99) Troponin I Quantitative < 0.017 ng/mL (0.000-0.055) Test 04/11/18 04:00 04/11/18 08:11 Iron Level 23 ug/dL (50-170) Total Iron Binding Capacity 347 ug/dL (250-450) Iron Saturation 7 % (15-34) Ferritin 63 ng/mL (8-252) Glucose (Fingerstick) 299 mg/dL (70-99) Laboratory Tests Test 04/10/18 11:33 04/10/18 17:33 04/10/18 18:20 04/10/18 20:57 Glucose (Fingerstick) 86 mg/dL (70-99) 198 mg/dL (70-99) 473 mg/dL (70-99) Troponin I Quantitative < 0.017 ng/mL (0.000-0.055) Test 04/11/18 04:00 04/11/18 08:11 Iron Level 23 ug/dL (50-170) Total Iron Binding Capacity 347 ug/dL (250-450) Iron Saturation 7 % (15-34) Ferritin 63 ng/mL (8-252) Glucose (Fingerstick) 299 mg/dL (70-99) Medications Current Medications Aspirin (Children'S Aspirin) 162 mg 1X ONCE PO Last administered on 04/09/18at 18:05; Start 04/09/18 at 15:00; Stop 04/09/18 at 15:01; Status DC Nitroglycerin (Nitrostat) 0.4 mg PRN Q5MIN PRN SL CP RATING > 1/10; Start 04/09 at 15:00; Stop 04/10/18 at 14:59; Status DC Morphine Sulfate (Morphine Sulfate) 5 mg 1X ONCE IV Last administered on at 18:05; Start 04/09/18 at 17:00; Stop 04/09/18 at 17:01; Status DC Ondansetron HCl (Zofran) 4 mg PRN Q8HRS PRN IV NAUSEA/VOMITING; Start 04/09/18 at 18:15; Stop 04/10/18 at 18:14; Status DC Morphine Sulfate (Morphine Sulfate) 4 mg PRN Q2HR PRN IV PAIN Last administered on 04/09/18at 20:38; Start 04/09/18 at 18:15; Stop 04/10/18 at 18:14 ; Status DC Acetaminophen (Tylenol) 650 mg PRN Q4HRS PRN PO FEVER Last administered on 04/10at 00:02; Start 04/09/18 at 18:15; Stop 04/10/18 at 18:14; Status DC Insulin Human Lispro (HumaLOG) 0-5 UNITS TIDWMEALS SQ ; Start 04/10/18 at 08:00 ; Stop 04/10/18 at 10:23; Status DC Dextrose (Dextrose 50%-Water Syringe) 12.5 gm PRN Q15MIN PRN IV SEE COMMENTS; Start 04/09/18 at 18:15 Clopidogrel Bisulfate (Plavix) 75 mg DAILYWBKFT PO Last administered on at 08:41; Start 04/10/18 at 08:00 Simvastatin (Zocor) 40 mg QHS PO Last administered on 04/10/18at 22:05; Start at 21:00 Metformin HCl (Glucophage) 1,000 mg BIDWMEALS PO ; Start 04/10/18 at 18:30; Stop 04/10/18 at 18:30; Status DC Glyburide (Diabeta) 5 mg BIDWMEALS PO ; Start 04/10/18 at 08:00; Stop 04/10/18 at 08:00; Status DC Iohexol (Omnipaque 300 Mg/ml) 75 ml 1X ONCE IV ; Start 04/09/18 at 18:45; Stop 04/09/18 at 18:46; Status DC Info (CONTRAST GIVEN -- Rx MONITORING) 1 each PRN DAILY PRN MC SEE COMMENTS; Start 04/09/18 at 19:00; Stop 04/11/18 at 18:59 Metformin HCl (Glucophage) 1,000 mg BIDWMEALS PO ; Start 04/12/18 at 08:00; Stop 04/12/18 at 08:00; Status DC Glimepiride (Amaryl) 4 mg DAILY PO Last administered on 04/10/18at 09:33; Start 04/10/18 at 09:00; Stop 04/10/18 at 10:23; Status DC Losartan Potassium (Cozaar) 100 mg DAILY PO Last administered on 04/11/18at 08: 44; Start 04/10/18 at 09:00 Hydrochlorothiazide (Microzide) 12.5 mg DAILY PO Last administered on at 08:40; Start 04/10/18 at 09:00 Insulin Glargine (Lantus) 30 units QHS SQ ; Start 04/09/18 at 21:00; Stop at 21:00; Status DC Aspirin (Children'S Aspirin) 81 mg DAILYWBKFT PO Last administered on at 09:33; Start 04/10/18 at 08:00; Stop 04/10/18 at 10:23; Status DC Acetaminophen (Tylenol) 650 mg PRN Q6HRS PRN PO MILD PAIN / TEMP; Start at 19:00 Magnesium Sulfate 50 ml @ 25 mls/hr 1X ONCE IV Last administered on 04/09/18at 20:00; Start 04/09/18 at 19:00; Stop 04/09/18 at 20:59; Status DC Non-Formulary Medication 30 ea QHS SQ ; Start 04/09/18 at 22:00; Stop 04/09/18 at 22:00; Status DC Non-Formulary Medication 30 ea QHS SQ Last administered on 04/09/18at 22:03; Start 04/09/18 at 22:00; Stop 04/10/18 at 10:23; Status DC Influenza Virus Vaccine (Afluria Trivalent [id number] Syringe) 0.5 ml ONCE ONCE VAX IM Last administered on 04/10/18at 16:31; Start 04/10/18 at 09:00; Stop at 09:01; Status DC Aspirin (Children'S Aspirin) 162 mg DAILYWBKFT PO Last administered on at 08:41; Start 04/10/18 at 11:00 Glimepiride (Amaryl) 4 mg BIDWMEALS PO Last administered on 04/11/18at 08:42; Start 04/10/18 at 17:00 Non-Formulary Medication 15 ea QHS SQ Last administered on 04/10/18at 21:00; Start 04/10/18 at 21:00 Ceftriaxone Sodium 1 gm/ Dextrose 50 ml @ 100 mls/hr Q24H IV ; Start 04/10/18 at 10:15; Status UNV Azithromycin (Zithromax) 500 mg 1X ONCE PO Last administered on 04/10/18at 11: 16; Start 04/10/18 at 11:00; Stop 04/10/18 at 11:01; Status DC Azithromycin (Zithromax) 250 mg DAILY PO Last administered on 04/11/18at 08:39; Start 04/11/18 at 09:00 Insulin Human Lispro (HumaLOG) 0-6 UNITS BG 300-39... TIDWMEALS SQ Last administered on 04/11/18at 08:37; Start 04/10/18 at 12:00 Acetaminophen/ Hydrocodone Bitart (Lortab 5/325) 1 tab PRN Q4HRS PRN PO MODERATE-SEVERE PAIN; Start 04/10/18 at 10:15 Guaifenesin (Robitussin Dm) 10 ml PRN Q6HRS PRN PO COUGH; Start 04/10/18 at 10: 15 Amlodipine Besylate (Norvasc) 5 mg DAILY PO Last administered on 04/11/18at 08: 43; Start 04/10/18 at 11:00 Ceftriaxone Sodium (Rocephin) 1 gm Q24H IVP Last administered on 04/10/18at 11: 17; Start 04/10/18 at 11:00 Lactobacillus Rhamnosus (Culturelle) 1 cap BID PO Last administered on at 08:39; Start 04/10/18 at 11:00 Albuterol/ Ipratropium (Duoneb) 3 ml RTQID NEB Last administered on 04/11/18at 07:50; Start 04/10/18 at 12:00 Methylprednisolone Sodium Succinate (SOLU-Medrol 125MG VIAL) 125 mg 1X ONCE IV Last administered on 04/10/18at 16:31; Start 04/10/18 at 15:00; Stop 04/10/18 at 15:01; Status DC Methylprednisolone Sodium Succinate (SOLU-Medrol 125MG VIAL) 125 mg DAILY IV Last administered on 04/11/18at 08:44; Start 04/11/18 at 09:00 Ketorolac Tromethamine (Toradol 15mg Vial) 15 mg PRN Q6HRS PRN IV PAIN; Start 04/10/18 at 14:45; Stop 04/15/18 at 14:44 Insulin Human Lispro (HumaLOG) 3 units 1X ONCE SQ Last administered on at 22:16; Start 04/10/18 at 22:30; Stop 04/10/18 at 22:31; Status DC Metformin HCl (Glucophage) 1,000 mg BIDWMEALS PO ; Start 04/12/18 at 08:00 Active Scripts Active Reported Benadryl (Diphenhydramine Hcl) 25 Mg Capsule 1 Cap PO PRN BID PRN Tylenol (Acetaminophen) 325 Mg Tablet 2 Tab PO PRN Q4HRS Aspir-Low (Aspirin) 81 Mg Tablet.dr 1 Tab PO DAILY Toujeo Solostar (Insulin Glargine,Hum.rec.anlog) 300 Unit/1 Ml Insuln.pen 30 Unit SQ HS Losartan-Hctz 100-12.5 Mg Tab (Losartan/Hydrochlorothiazide) 1 Each Tablet 1 Tab PO DAILY Glimepiride 4 Mg Tablet 4 Mg PO BID Pravastatin Sodium 40 Mg Tablet 40 Mg PO DAILY Clopidogrel (Clopidogrel Bisulfate) 75 Mg Tablet 75 Mg PO DAILY Metformin Hcl 1,000 Mg Tablet 1,000 Mg PO BID Vitals/I & O Vital Sign - Last 24 Hours 04/10/18 04/10/18 04/10/18 04/10/18 11:00 11:15 12:06 15:39 Temp 98.4 98.4 98.4 98.4 Pulse 90 74 79 B/P (MAP) 137/56 (83) 156/76 147/72 (97) Pulse Ox 99 99 92 O2 Delivery Room Air Room Air 04/10/18 04/10/18 04/10/18 04/10/18 15:53 19:42 20:31 23:43 Temp 98.2 98.5 98.2 98.5 Pulse 82 87 Resp 20 18 B/P (MAP) 146/75 (98) 152/86 (108) Pulse Ox 96 100 96 O2 Delivery Room Air Room Air Room Air Room Air 04/11/18 04/11/18 04/11/18 04/11/18 03:00 07:00 07:51 08:43 Temp 97.9 98.5 97.9 98.5 Pulse 82 92 82 Resp 18 18 B/P (MAP) 154/82 (106) 117/62 (80) 154/82 Pulse Ox 95 94 100 O2 Delivery Room Air Room Air Room Air 04/11/18 08:44 Pulse 82 B/P (MAP) 154/82 Intake and Output 04/10/18 04/10/18 04/11/18 15:00 23:00 07:00 Intake Total 240 ml 340 ml 600 ml Output Total 1000 ml Balance 240 ml -660 ml 600 ml JOSELO MAHMOOD MD Apr 11, 2018 11:03
[2018-04-11] MEDS: cefTRIAXone IV Push 1 GM VIAL. IVP SCH (12:01)
--- NOTE | 2018-04-11 12:53 | PDOC ---
CARDIOLOGY PROGRESS NOTE SUBJECTIVE: No new events overnight. Denies any chest pain. Cough better. OBJECTIVE: Vital SIgns: Vital Signs Date Time Temp Pulse Resp B/P (MAP) Pulse Ox O2 Delivery O2 Flow Rate FiO2 04/11/18 11:57 1 Room Air 04/11/18 11:00 98.2 82 18 149/74 (99) 98.2 I & O Intake and Output 04/11/18 07:00 Intake Total 1180 ml Output Total 1000 ml Balance 180 ml Intake Oral 1180 ml Output Urine Total 1000 ml # Voids 8 Objective: GEN.: No apparent distress. Alert and oriented. HEENT: Head is normocephalic, atraumatic NECK: Supple. LUNGS: Clear to auscultation. HEART: RRR, S1, S2 present. Peripheral pulses intact ABDOMEN: Soft, nontender. Positive bowel sounds. EXTREMITIES: Without any cyanosis. warm to touch. Diminished right sided pedal pulses NEUROLOGIC: Normal speech, normal tone PSYCHIATRIC: Normal affect, normal mood. 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 Atypical chest pain - likely related to PNA 2. HTN 3. Tobacco abuse 4. [place] category 3 claudication with activity at work with moderate to severe RCFA/SFA disease. PLAN: 1. Continue treatment of PNA. 2. She is on appropriate medical therapy. Lipids at goal at LDL of 69 3. For her PAD, recommend smoking cessation and walking program. Will f/u in the office and if no significant improvement, will then pursue diagnostic angiography and consider surgical versus perc intervention as needed. Thanks. BARBRA LAKHANI MD Apr 11, 2018 12:53
--- NOTE | 2018-04-11 13:47 | PDOC ---
PULMONARY PROGRESS NOTES Subjective PT WITH NO INCREASE SOA FEELS BETTER Vitals Vital Signs Date Time Temp Pulse Resp B/P (MAP) Pulse Ox O2 Delivery O2 Flow Rate FiO2 04/11/18 11:57 1 Room Air 04/11/18 11:00 98.2 82 18 149/74 (99) 98.2 ROS: No Nausea, No Chest Pain, No Abdominal Pain, No Increase Cough Lungs: Wheezing, Crackles Cardiovascular: S1, S2 Abdomen: Soft Neuro Exam: Alert Extremities: No Edema Skin: Warm Labs Laboratory Tests Test 04/09/18 14:30 04/09/18 15:05 04/09/18 17:00 04/09/18 18:14 Sodium Level 147 mmol/L (136-145) Potassium Level 3.8 mmol/L (3.5-5.1) Chloride Level 107 mmol/L (98-107) Carbon Dioxide Level 28 mmol/L (21-32) Anion Gap 12 (6-14) Blood Urea Nitrogen 14 mg/dL (7-20) Creatinine 1.0 mg/dL (0.6-1.0) Estimated GFR (Cockcroft-Gault) 68.0 BUN/Creatinine Ratio 14 (6-20) Glucose Level 125 mg/dL (70-99) Calcium Level 9.4 mg/dL (8.5-10.1) Magnesium Level 1.7 mg/dL (1.8-2.4) Total Bilirubin 0.3 mg/dL (0.2-1.0) Aspartate Amino Transf (AST/SGOT) 16 U/L (15-37) Alanine Aminotransferase (ALT/SGPT) 16 U/L (14-59) Alkaline Phosphatase 121 U/L (46-116) Troponin I Quantitative < 0.017 ng/mL (0.000-0.055) DL-Cpn-X-Type Natriuretic Peptide 131 pg/mL (0-124) Total Protein 7.4 g/dL (6.4-8.2) Albumin 3.3 g/dL (3.4-5.0) Albumin/Globulin Ratio 0.8 (1.0-1.7) White Blood Count 13.5 x10^3/uL (4.0-11.0) Red Blood Count 3.57 x10^6/uL (3.50-5.40) Hemoglobin 10.1 g/dL (12.0-15.5) Hematocrit 29.4 % (36.0-47.0) Mean Corpuscular Volume 82 fL (79-100) Mean Corpuscular Hemoglobin 28 pg (25-35) Mean Corpuscular Hemoglobin Concent 35 g/dL (31-37) Red Cell Distribution Width 14.9 % (11.5-14.5) Platelet Count 286 x10^3/uL (140-400) Neutrophils (%) (Auto) 64 % (31-73) Lymphocytes (%) (Auto) 27 % (24-48) Monocytes (%) (Auto) 8 % (0-9) Eosinophils (%) (Auto) 1 % (0-3) Basophils (%) (Auto) 1 % (0-3) Neutrophils # (Auto) 8.7 x10^3uL (1.8-7.7) Lymphocytes # (Auto) 3.6 x10^3/uL (1.0-4.8) Monocytes # (Auto) 1.0 x10^3/uL (0.0-1.1) Eosinophils # (Auto) 0.1 x10^3/uL (0.0-0.7) Basophils # (Auto) 0.1 x10^3/uL (0.0-0.2) Prothrombin Time 12.3 SEC (11.7-14.0) Prothromb Time International Ratio 1.0 (0.8-1.1) Urine Collection Type Unknown Urine Color Yellow Urine Clarity Clear Urine pH 6.5 Urine Specific [place] 1.010 Urine Protein Negative mg/dL (NEG-TRACE) Urine Glucose (UA) Negative mg/dL (NEG) Urine Ketones (Stick) Negative mg/dL (NEG) Urine Blood Negative (NEG) Urine Nitrite Negative (NEG) Urine Bilirubin Negative (NEG) Urine Urobilinogen Dipstick 1.0 mg/dL (0.2 mg/dL) Urine Leukocyte Esterase Negative (NEG) Urine RBC 0 /HPF (0-2) Urine WBC 1-4 /HPF (0-4) Urine Squamous Epithelial Cells Few /LPF Urine Bacteria Few /HPF (0-FEW) Urine Opiates Screen Neg (NEG) Urine Methadone Screen Neg (NEG) Urine Barbiturates Neg (NEG) Urine Phencyclidine Screen Neg (NEG) Urine Amphetamine/Methamphetamine Neg (NEG) Urine Benzodiazepines Screen Neg (NEG) Urine Cocaine Screen Neg (NEG) Urine Cannabinoids Screen Pos (NEG) Urine Ethyl Alcohol Neg (NEG) Glucose (Fingerstick) 131 mg/dL (70-99) Test 04/09/18 20:33 04/09/18 22:00 04/10/18 05:45 04/10/18 08:26 Glucose (Fingerstick) 314 mg/dL (70-99) 134 mg/dL (70-99) Troponin I Quantitative < 0.017 ng/mL (0.000-0.055) White Blood Count 11.3 x10^3/uL (4.0-11.0) Red Blood Count 3.28 x10^6/uL (3.50-5.40) Hemoglobin 9.5 g/dL (12.0-15.5) Hematocrit 27.1 % (36.0-47.0) Mean Corpuscular Volume 83 fL (79-100) Mean Corpuscular Hemoglobin 29 pg (25-35) Mean Corpuscular Hemoglobin Concent 35 g/dL (31-37) Red Cell Distribution Width 14.8 % (11.5-14.5) Platelet Count 271 x10^3/uL (140-400) Neutrophils (%) (Auto) 62 % (31-73) Lymphocytes (%) (Auto) 27 % (24-48) Monocytes (%) (Auto) 10 % (0-9) Eosinophils (%) (Auto) 1 % (0-3) Basophils (%) (Auto) 1 % (0-3) Neutrophils # (Auto) 6.9 x10^3uL (1.8-7.7) Lymphocytes # (Auto) 3.0 x10^3/uL (1.0-4.8) Monocytes # (Auto) 1.1 x10^3/uL (0.0-1.1) Eosinophils # (Auto) 0.2 x10^3/uL (0.0-0.7) Basophils # (Auto) 0.1 x10^3/uL (0.0-0.2) D-Dimer ([place]) 0.37 ug/mlFEU (0.00-0.50) Sodium Level 144 mmol/L (136-145) Potassium Level 3.6 mmol/L (3.5-5.1) Chloride Level 106 mmol/L (98-107) Carbon Dioxide Level 29 mmol/L (21-32) Anion Gap 9 (6-14) Blood Urea Nitrogen 10 mg/dL (7-20) Creatinine 1.0 mg/dL (0.6-1.0) Estimated GFR (Cockcroft-Gault) 68.0 Glucose Level 113 mg/dL (70-99) Calcium Level 8.5 mg/dL (8.5-10.1) Magnesium Level 2.1 mg/dL (1.8-2.4) Triglycerides Level 86 mg/dL (0-150) Cholesterol Level 117 mg/dL (0-200) LDL Cholesterol, Calculated 69 mg/dL (0-100) VLDL Cholesterol, Calculated 17 mg/dL (0-40) Non-HDL Cholesterol Calculated 86 mg/dL (0-129) HDL Cholesterol 31 mg/dL (40-60) Cholesterol/HDL Ratio 3.8 Test 04/10/18 11:33 04/10/18 17:33 04/10/18 18:20 04/10/18 20:57 Glucose (Fingerstick) 86 mg/dL (70-99) 198 mg/dL (70-99) 473 mg/dL (70-99) Troponin I Quantitative < 0.017 ng/mL (0.000-0.055) Test 04/11/18 04:00 04/11/18 08:11 04/11/18 11:32 Iron Level 23 ug/dL (50-170) Total Iron Binding Capacity 347 ug/dL (250-450) Iron Saturation 7 % (15-34) Ferritin 63 ng/mL (8-252) Glucose (Fingerstick) 299 mg/dL (70-99) 398 mg/dL (70-99) Laboratory Tests Test 04/10/18 17:33 04/10/18 18:20 04/10/18 20:57 04/11/18 04:00 Glucose (Fingerstick) 198 mg/dL (70-99) 473 mg/dL (70-99) Troponin I Quantitative < 0.017 ng/mL (0.000-0.055) Iron Level 23 ug/dL (50-170) Total Iron Binding Capacity 347 ug/dL (250-450) Iron Saturation 7 % (15-34) Ferritin 63 ng/mL (8-252) Test 04/11/18 08:11 04/11/18 11:32 Glucose (Fingerstick) 299 mg/dL (70-99) 398 mg/dL (70-99) Medications Active Scripts Medications Dose Route/Sig Max Daily Dose Days Date Category Benadryl (Diphenhydramine Hcl) 25 Mg Capsule 1 Cap PO PRN BID PRN 04/09/18 Reported Tylenol (Acetaminophen) 325 Mg Tablet 2 Tab PO PRN Q4HRS 04/09/18 Reported Aspir-Low (Aspirin) 81 Mg Tablet.dr 1 Tab PO DAILY 04/09/18 Reported Toujeo Solostar (Insulin Glargine,Hum.rec.anlog) 300 Unit/1 Ml Insuln.pen 30 Unit SQ HS 04/09/18 Reported Losartan-Hctz 100-12.5 Mg Tab (Losartan/Hydrochlorothiazide) 1 Each Tablet 1 Tab PO DAILY 04/09/18 Reported Glimepiride 4 Mg Tablet 4 Mg PO BID 04/09/18 Reported Pravastatin Sodium 40 Mg Tablet 40 Mg PO DAILY 04/09/18 Reported Clopidogrel (Clopidogrel Bisulfate) 75 Mg Tablet 75 Mg PO DAILY 04/09/18 Reported Metformin Hcl 1,000 Mg Tablet 1,000 Mg PO BID 04/09/18 Reported Impression . IMPRESSION: 1. Abnormal CT chest revealing left upper lobe consolidation with air bronchogram compatible with pneumonia, gram negative. 2. Tobacco dependence. 3. Acute exacerbation of chronic obstructive pulmonary disease. 4. Pleurisy. 5. Mild protein malnutrition, present upon admission. 6. Positive drug screen for marijuana. 7. Peripheral vascular disease. Plan . RESP STATUS IS COMPENSATED SURGERY CONSULTED 1. Continue current antibiotics. 2. Nonsteroidals for the pleurisy. 3. The patient instructed on the importance of discontinuing tobacco use. 4. Follow Cardiology input. 5. Followup in this Outpatient Department with a repeat CT in 2 months. 6. Monitor blood sugars while on steroids. YANA GARCIA MD Apr 11, 2018 13:47
[2018-04-11 15:00] VITALS: BP 156/87
[2018-04-11] MEDS ORDERED: INSULIN LISPRO 300 UNITS/3 ML INSULN.PEN. SQ ONE ×4 (17:30→21:00)
[2018-04-11] MEDS ORDERED: DEXTROSE 50% 25 GM / 50ML DISP.SYRIN. IV PRN (17:45)
[2018-04-11] MEDS ORDERED: INSULIN LISPRO 300 UNITS/3 ML INSULN.PEN. SQ PRN ×2 (18:30→21:00)
[2018-04-11 19:35] VITALS: BP 128/69
[2018-04-11] MEDS ORDERED: NON FORMULARY ITEM SQ SCH ×2 (21:00)
[2018-04-11] MEDS: SIMVASTATIN 40 MG TABLET. PO SCH (21:18)
[2018-04-11] MEDS: ACETAMINOPHEN 325 MG TABLET. PO PRN (21:30)
[2018-04-11 23:20] VITALS: BP 125/65
[2018-04-12 03:40] VITALS: BP 120/57
[2018-04-12] MEDS ORDERED: INSULIN LISPRO 300 UNITS/3 ML INSULN.PEN. SQ SCH (07:30)
[2018-04-12 07:45] VITALS: BP 133/67
[2018-04-12] MEDS: GLIMEPIRIDE 2 MG TABLET. PO SCH ×2 (08:38→17:00)
[2018-04-12] MEDS: LACTOBACILLUS RHAMNOSUS GG 1 CAPSULE. PO SCH ×2 (08:39→20:04)
[2018-04-12] MEDS: AZITHROMYCIN 250 MG TABLET. PO SCH (08:39)
[2018-04-12] MEDS: hydroCHLOROthiazide 12.5 MG CAPSULE PO SCH (08:39)
[2018-04-12] MEDS: amLODIPine BESYLATE 5 MG TABLET PO SCH (08:39)
[2018-04-12] MEDS: ASPIRIN CHEWABLE 81 MG TABLET. PO SCH (08:39)
[2018-04-12] MEDS: LOSARTAN POTASSIUM 50 MG TABLET. PO SCH (08:40)
[2018-04-12] MEDS: CLOPIDOGREL BISULFATE 75 MG TABLET PO SCH (08:40)
[2018-04-12] MEDS: INSULIN LISPRO 300 UNITS/3 ML INSULN.PEN. SQ SCH ×5 (08:48→17:00)
[2018-04-12 08:54] LABS: BASO % 0 % (0-3); EOS % 0 % (0-3); HEMATOCRIT 30.3 % (36.0-47.0); HEMOGLOBIN 10.3 g/dL (12.0-15.5); LYMPH # 2.4 x10^3/uL (1.0-4.8); LYMPH % 10 % (24-48); MEAN CORPUSCULAR HEMOGLOBIN 28 pg (25-35); MEAN CORPUSCULAR HGB CONC 34 g/dL (31-37); MEAN CORPUSCULAR VOLUME 83 fL (79-100); MONO # 1.3 x10^3/uL (0.0-1.1); MONO % 5 % (0-9); NEUT # 19.8 x10^3uL (1.8-7.7); NEUT % 84 % (31-73); PLATELET COUNT 369 x10^3/uL (140-400); RED BLOOD COUNT 3.65 x10^6/uL (3.50-5.40); RED CELL DISTRIBUTION WIDTH 14.8 % (11.5-14.5); WHITE BLOOD COUNT 23.5 x10^3/uL (4.0-11.0)
[2018-04-12 09:08] LABS: CALCIUM 9.6 mg/dL (8.5-10.1); CREATININE 1.1 mg/dL (0.6-1.0); GFR 60.9
[2018-04-12] MEDS: IPRATRPIUM/ALBUTEROL 0.5/2.5MG 3 ML NEBU. NEB SCH ×4 (09:11→20:59)
--- NOTE | 2018-04-12 10:03 | PDOC ---
PROGRESS NOTES Subjective Subjective cough better. feels better. blood sugars high over 500 yesterday and fbs 275 today. received iv solumedrol yesterday morning but discontinued. lab reviewed. Objective Objective Vital Signs Date Time Temp Pulse Resp B/P (MAP) Pulse Ox O2 Delivery O2 Flow Rate FiO2 04/12/18 09:12 99 Room Air 04/12/18 08:40 80 04/12/18 07:45 97.4 18 133/67 (89) 97.4 Intake and Output 04/12/18 07:00 Intake Total 2560 ml Balance 2560 ml Intake Oral 2560 ml # Voids 3 Physical Exam Abdomen: Soft Heart: Regular rate, Normal S1, Normal S2 Extremities: No edema General: Alert HEENT: Atraumatic Lungs: Clear to auscultation Neuro: Normal speech Psych/Mental Status: Mental status NL Skin: No rashes Assessment Assessment Problems. Confluent left upper lobe infiltrate with air bronchograms with a recent cough and some pleuritic chest pain in left anterior chest, most likely consistent with pneumonia. 2. Pleuritic pain secondary to the pneumonia. improved 3. Diabetes mellitus type 2, on insulin with hyperglycemia.off of steroids 4. Hypertension. 5. Hyperlipidemia. 6. severe peripheral arterial disease with a history of revascularization of the left lower extremity in 2007. severe PAD RLE with claudication 7. Coronary artery calcifications noted on the CAT scan of the chest. 8. Anemia of chronic disease polysubstance abuse. cigarettes and marijuana Medical Problems: (1) Pleurisy Status: Acute Plan Plan of Care continue iv rocephin and zithromax increase insulin and resume metformin and continue glimepiride consult dr. rivera. may need LE angiogram d/c hctz and continue amlodipine Comment Review of Relevant I have reviewed the following items ranjan (where applicable) has been applied. Labs Laboratory Tests Test 04/10/18 11:33 04/10/18 17:33 04/10/18 18:20 04/10/18 20:57 Glucose (Fingerstick) 86 mg/dL (70-99) 198 mg/dL (70-99) 473 mg/dL (70-99) Troponin I Quantitative < 0.017 ng/mL (0.000-0.055) Test 04/11/18 04:00 04/11/18 08:11 04/11/18 11:32 04/11/18 17:13 Iron Level 23 ug/dL (50-170) Total Iron Binding Capacity 347 ug/dL (250-450) Iron Saturation 7 % (15-34) Ferritin 63 ng/mL (8-252) Glucose (Fingerstick) 299 mg/dL (70-99) 398 mg/dL (70-99) 543 mg/dL (70-99) Test 04/11/18 21:19 04/12/18 07:40 04/12/18 08:30 Glucose (Fingerstick) 497 mg/dL (70-99) 275 mg/dL (70-99) White Blood Count 23.5 x10^3/uL (4.0-11.0) Red Blood Count 3.65 x10^6/uL (3.50-5.40) Hemoglobin 10.3 g/dL (12.0-15.5) Hematocrit 30.3 % (36.0-47.0) Mean Corpuscular Volume 83 fL (79-100) Mean Corpuscular Hemoglobin 28 pg (25-35) Mean Corpuscular Hemoglobin Concent 34 g/dL (31-37) Red Cell Distribution Width 14.8 % (11.5-14.5) Platelet Count 369 x10^3/uL (140-400) Neutrophils (%) (Auto) 84 % (31-73) Lymphocytes (%) (Auto) 10 % (24-48) Monocytes (%) (Auto) 5 % (0-9) Eosinophils (%) (Auto) 0 % (0-3) Basophils (%) (Auto) 0 % (0-3) Neutrophils # (Auto) 19.8 x10^3uL (1.8-7.7) Lymphocytes # (Auto) 2.4 x10^3/uL (1.0-4.8) Monocytes # (Auto) 1.3 x10^3/uL (0.0-1.1) Eosinophils # (Auto) 0.0 x10^3/uL (0.0-0.7) Basophils # (Auto) 0.0 x10^3/uL (0.0-0.2) Sodium Level 140 mmol/L (136-145) Potassium Level 4.0 mmol/L (3.5-5.1) Chloride Level 103 mmol/L (98-107) Carbon Dioxide Level 26 mmol/L (21-32) Anion Gap 11 (6-14) Blood Urea Nitrogen 24 mg/dL (7-20) Creatinine 1.1 mg/dL (0.6-1.0) Estimated GFR (Cockcroft-Gault) 60.9 Glucose Level 270 mg/dL (70-99) Calcium Level 9.6 mg/dL (8.5-10.1) Laboratory Tests Test 04/11/18 11:32 04/11/18 17:13 04/11/18 21:19 04/12/18 07:40 Glucose (Fingerstick) 398 mg/dL (70-99) 543 mg/dL (70-99) 497 mg/dL (70-99) 275 mg/dL (70-99) Test 04/12/18 08:30 White Blood Count 23.5 x10^3/uL (4.0-11.0) Red Blood Count 3.65 x10^6/uL (3.50-5.40) Hemoglobin 10.3 g/dL (12.0-15.5) Hematocrit 30.3 % (36.0-47.0) Mean Corpuscular Volume 83 fL (79-100) Mean Corpuscular Hemoglobin 28 pg (25-35) Mean Corpuscular Hemoglobin Concent 34 g/dL (31-37) Red Cell Distribution Width 14.8 % (11.5-14.5) Platelet Count 369 x10^3/uL (140-400) Neutrophils (%) (Auto) 84 % (31-73) Lymphocytes (%) (Auto) 10 % (24-48) Monocytes (%) (Auto) 5 % (0-9) Eosinophils (%) (Auto) 0 % (0-3) Basophils (%) (Auto) 0 % (0-3) Neutrophils # (Auto) 19.8 x10^3uL (1.8-7.7) Lymphocytes # (Auto) 2.4 x10^3/uL (1.0-4.8) Monocytes # (Auto) 1.3 x10^3/uL (0.0-1.1) Eosinophils # (Auto) 0.0 x10^3/uL (0.0-0.7) Basophils # (Auto) 0.0 x10^3/uL (0.0-0.2) Sodium Level 140 mmol/L (136-145) Potassium Level 4.0 mmol/L (3.5-5.1) Chloride Level 103 mmol/L (98-107) Carbon Dioxide Level 26 mmol/L (21-32) Anion Gap 11 (6-14) Blood Urea Nitrogen 24 mg/dL (7-20) Creatinine 1.1 mg/dL (0.6-1.0) Estimated GFR (Cockcroft-Gault) 60.9 Glucose Level 270 mg/dL (70-99) Calcium Level 9.6 mg/dL (8.5-10.1) Microbiology 04/11/18 - Final, Resulted 04/11/18 - Final, Resulted 04/11/18 - Final, Resulted 04/11/18 - Final, Resulted 04/11/18 Gram Stain Evaluation - Final, Resulted 04/11/18 Sputum Culture, Resulted Pending Medications Current Medications Aspirin (Children'S Aspirin) 162 mg 1X ONCE PO Last administered on 04/09/18at 18:05; Start 04/09/18 at 15:00; Stop 04/09/18 at 15:01; Status DC Nitroglycerin (Nitrostat) 0.4 mg PRN Q5MIN PRN SL CP RATING > 1/10; Start 04/09 at 15:00; Stop 04/10/18 at 14:59; Status DC Morphine Sulfate (Morphine Sulfate) 5 mg 1X ONCE IV Last administered on at 18:05; Start 04/09/18 at 17:00; Stop 04/09/18 at 17:01; Status DC Ondansetron HCl (Zofran) 4 mg PRN Q8HRS PRN IV NAUSEA/VOMITING; Start 04/09/18 at 18:15; Stop 04/10/18 at 18:14; Status DC Morphine Sulfate (Morphine Sulfate) 4 mg PRN Q2HR PRN IV PAIN Last administered on 04/09/18at 20:38; Start 04/09/18 at 18:15; Stop 04/10/18 at 18:14 ; Status DC Acetaminophen (Tylenol) 650 mg PRN Q4HRS PRN PO FEVER Last administered on 04/10at 00:02; Start 04/09/18 at 18:15; Stop 04/10/18 at 18:14; Status DC Insulin Human Lispro (HumaLOG) 0-5 UNITS TIDWMEALS SQ ; Start 04/10/18 at 08:00 ; Stop 04/10/18 at 10:23; Status DC Dextrose (Dextrose 50%-Water Syringe) 12.5 gm PRN Q15MIN PRN IV SEE COMMENTS; Start 04/09/18 at 18:15 Clopidogrel Bisulfate (Plavix) 75 mg DAILYWBKFT PO Last administered on at 08:40; Start 04/10/18 at 08:00 Simvastatin (Zocor) 40 mg QHS PO Last administered on 04/11/18at 21:18; Start at 21:00 Metformin HCl (Glucophage) 1,000 mg BIDWMEALS PO ; Start 04/10/18 at 18:30; Stop 04/10/18 at 18:30; Status DC Glyburide (Diabeta) 5 mg BIDWMEALS PO ; Start 04/10/18 at 08:00; Stop 04/10/18 at 08:00; Status DC Iohexol (Omnipaque 300 Mg/ml) 75 ml 1X ONCE IV ; Start 04/09/18 at 18:45; Stop 04/09/18 at 18:46; Status DC Info (CONTRAST GIVEN -- Rx MONITORING) 1 each PRN DAILY PRN MC SEE COMMENTS; Start 04/09/18 at 19:00; Stop 04/11/18 at 18:59; Status DC Metformin HCl (Glucophage) 1,000 mg BIDWMEALS PO ; Start 04/12/18 at 08:00; Stop 04/12/18 at 08:00; Status DC Glimepiride (Amaryl) 4 mg DAILY PO Last administered on 04/10/18at 09:33; Start 04/10/18 at 09:00; Stop 04/10/18 at 10:23; Status DC Losartan Potassium (Cozaar) 100 mg DAILY PO Last administered on 04/12/18at 08: 40; Start 04/10/18 at 09:00 Hydrochlorothiazide (Microzide) 12.5 mg DAILY PO Last administered on at 08:39; Start 04/10/18 at 09:00 Insulin Glargine (Lantus) 30 units QHS SQ ; Start 04/09/18 at 21:00; Stop at 21:00; Status DC Aspirin (Children'S Aspirin) 81 mg DAILYWBKFT PO Last administered on at 09:33; Start 04/10/18 at 08:00; Stop 04/10/18 at 10:23; Status DC Acetaminophen (Tylenol) 650 mg PRN Q6HRS PRN PO MILD PAIN / TEMP Last administered on 04/11/18at 21:30; Start 04/09/18 at 19:00 Magnesium Sulfate 50 ml @ 25 mls/hr 1X ONCE IV Last administered on 04/09/18at 20:00; Start 04/09/18 at 19:00; Stop 04/09/18 at 20:59; Status DC Non-Formulary Medication 30 ea QHS SQ ; Start 04/09/18 at 22:00; Stop 04/09/18 at 22:00; Status DC Non-Formulary Medication 30 ea QHS SQ Last administered on 04/09/18at 22:03; Start 04/09/18 at 22:00; Stop 04/10/18 at 10:23; Status DC Influenza Virus Vaccine (Afluria Trivalent [id number] Syringe) 0.5 ml ONCE ONCE VAX IM Last administered on 04/10/18at 16:31; Start 04/10/18 at 09:00; Stop at 09:01; Status DC Aspirin (Children'S Aspirin) 162 mg DAILYWBKFT PO Last administered on at 08:39; Start 04/10/18 at 11:00 Glimepiride (Amaryl) 4 mg BIDWMEALS PO Last administered on 04/12/18at 08:38; Start 04/10/18 at 17:00 Non-Formulary Medication 15 ea QHS SQ Last administered on 04/10/18at 21:00; Start 04/10/18 at 21:00; Stop 04/11/18 at 11:03; Status DC Ceftriaxone Sodium 1 gm/ Dextrose 50 ml @ 100 mls/hr Q24H IV ; Start 04/10/18 at 10:15; Status UNV Azithromycin (Zithromax) 500 mg 1X ONCE PO Last administered on 04/10/18at 11: 16; Start 04/10/18 at 11:00; Stop 04/10/18 at 11:01; Status DC Azithromycin (Zithromax) 250 mg DAILY PO Last administered on 04/12/18at 08:39; Start 04/11/18 at 09:00 Insulin Human Lispro (HumaLOG) 0-6 UNITS BG 300-39... TIDWMEALS SQ Last administered on 04/12/18at 08:48; Start 04/10/18 at 12:00 Acetaminophen/ Hydrocodone Bitart (Lortab 5/325) 1 tab PRN Q4HRS PRN PO MODERATE-SEVERE PAIN; Start 04/10/18 at 10:15 Guaifenesin (Robitussin Dm) 10 ml PRN Q6HRS PRN PO COUGH; Start 04/10/18 at 10: 15 Amlodipine Besylate (Norvasc) 5 mg DAILY PO Last administered on 04/12/18at 08: 39; Start 04/10/18 at 11:00 Ceftriaxone Sodium (Rocephin) 1 gm Q24H IVP Last administered on 04/11/18at 12: 01; Start 04/10/18 at 11:00 Lactobacillus Rhamnosus (Culturelle) 1 cap BID PO Last administered on at 08:39; Start 04/10/18 at 11:00 Albuterol/ Ipratropium (Duoneb) 3 ml RTQID NEB Last administered on 04/12/18at 09:11; Start 04/10/18 at 12:00 Methylprednisolone Sodium Succinate (SOLU-Medrol 125MG VIAL) 125 mg 1X ONCE IV Last administered on 04/10/18at 16:31; Start 04/10/18 at 15:00; Stop 04/10/18 at 15:01; Status DC Methylprednisolone Sodium Succinate (SOLU-Medrol 125MG VIAL) 125 mg DAILY IV Last administered on 04/11/18at 08:44; Start 04/11/18 at 09:00; Stop 04/11/18 at 10:54; Status DC Ketorolac Tromethamine (Toradol 15mg Vial) 15 mg PRN Q6HRS PRN IV PAIN Last administered on 04/11/18at 23:35; Start 04/10/18 at 14:45; Stop 04/15/18 at 14:44 Insulin Human Lispro (HumaLOG) 3 units 1X ONCE SQ Last administered on at 22:16; Start 04/10/18 at 22:30; Stop 04/10/18 at 22:31; Status DC Metformin HCl (Glucophage) 1,000 mg BIDWMEALS PO Last administered on at 08:38; Start 04/12/18 at 08:00 Metformin HCl (Glucophage) 1,000 mg BIDWMEALS PO ; Start 04/11/18 at 17:00; Status UNV Non-Formulary Medication 25 ea QHS SQ ; Start 04/11/18 at 21:00; Stop 04/11/18 at 21:00; Status DC Insulin Human Lispro (HumaLOG) 14 units 1X ONCE SQ Last administered on at 17:45; Start 04/11/18 at 17:30; Stop 04/11/18 at 17:37; Status DC Insulin Human Lispro (HumaLOG) 10 units TIDAC SQ Last administered on at 08:47; Start 04/12/18 at 07:30 Dextrose (Dextrose 50%-Water Syringe) 12.5 gm PRN Q15MIN PRN IV SEE COMMENTS; Start 04/11/18 at 17:45 Non-Formulary Medication 30 ea QHS SQ Last administered on 04/11/18at 21:00; Start 04/11/18 at 21:00 Insulin Human Lispro (HumaLOG) 2 units 1X ONCE SQ ; Start 04/11/18 at 21:00; Stop 04/11/18 at 21:00; Status DC Insulin Human Lispro (HumaLOG) 4 units 1X ONCE SQ Last administered on at 21:21; Start 04/11/18 at 18:15; Stop 04/11/18 at 18:16; Status DC Insulin Human Lispro (HumaLOG) 2 units PRN QHS PRN SQ SEE COMMENT; Start at 18:30; Stop 04/11/18 at 21:00; Status DC Insulin Human Lispro (HumaLOG) 4 units 1X ONCE SQ ; Start 04/11/18 at 18:30; Stop 04/11/18 at 18:30; Status DC Insulin Human Lispro (HumaLOG) 4 units PRN QHS PRN SQ SEE INSTRUCTION; Start at 21:00; Stop 04/11/18 at 21:01; Status DC Active Scripts Active Reported Benadryl (Diphenhydramine Hcl) 25 Mg Capsule 1 Cap PO PRN BID PRN Tylenol (Acetaminophen) 325 Mg Tablet 2 Tab PO PRN Q4HRS Aspir-Low (Aspirin) 81 Mg Tablet. 1 Tab PO DAILY [place] Solostar (Insulin Glargine,Hum.rec.anlog) 300 Unit/1 Ml Insuln.pen 30 Unit SQ HS Losartan-Hctz 100-12.5 Mg Tab (Losartan/Hydrochlorothiazide) 1 Each Tablet 1 Tab PO DAILY Glimepiride 4 Mg Tablet 4 Mg PO BID Pravastatin Sodium 40 Mg Tablet 40 Mg PO DAILY Clopidogrel (Clopidogrel Bisulfate) 75 Mg Tablet 75 Mg PO DAILY Metformin Hcl 1,000 Mg Tablet 1,000 Mg PO BID Vitals/I & O Vital Sign - Last 24 Hours 04/11/18 04/11/18 04/11/18 04/11/18 11:00 11:57 15:00 15:28 Temp 98.2 98.5 98.2 98.5 Pulse 82 98 Resp 18 18 B/P (MAP) 149/74 (99) 156/87 (110) Pulse Ox 97 1 97 O2 Delivery Room Air Room Air Room Air Room Air 04/11/18 04/11/18 04/11/18 04/12/18 19:35 20:21 23:20 03:40 Temp 98.2 97.7 97.7 98.2 97.7 97.7 Pulse 102 85 80 Resp 18 18 18 B/P (MAP) 128/69 (88) 125/65 (85) 120/57 (78) Pulse Ox 97 96 99 96 O2 Delivery Room Air Room Air Room Air Room Air 04/12/18 04/12/18 04/12/18 04/12/18 07:45 08:39 08:40 09:12 Temp 97.4 97.4 Pulse 78 80 80 Resp 18 B/P (MAP) 133/67 (89) Pulse Ox 97 99 O2 Delivery Room Air Room Air Intake and Output 04/11/18 04/11/18 04/12/18 15:00 23:00 07:00 Intake Total 300 ml 1600 ml 660 ml Balance 300 ml 1600 ml 660 ml JOSELO MAHMOOD MD Apr 12, 2018 10:03
[2018-04-12 10:25] LABS: % BANDS 10 % (0-9); % LYMPHS 14 % (24-48); % MONOS 2 % (0-10); % SEGS 74 % (35-66)
[2018-04-12 10:26] LABS: PLT ESTIMATE ADEQUATE (ADEQUATE)
[2018-04-12 10:27] LABS: ANISOCYTOSIS SLIGHT; MICROCYTOSIS SLIGHT
--- NOTE | 2018-04-12 10:30 | PDOC ---
PULMONARY PROGRESS NOTES Subjective PT WITH NO INCREASE SOA FEELS BETTER Vitals Vital Signs Date Time Temp Pulse Resp B/P (MAP) Pulse Ox O2 Delivery O2 Flow Rate FiO2 04/12/18 09:12 99 Room Air 04/12/18 08:40 80 04/12/18 07:45 97.4 18 133/67 (89) 97.4 ROS: No Nausea, No Chest Pain, No Abdominal Pain, No Increase Cough Lungs: Wheezing (right side) Cardiovascular: S1, S2 Abdomen: Soft Neuro Exam: Alert Extremities: No Edema Skin: Warm Labs Laboratory Tests Test 04/10/18 11:33 04/10/18 17:33 04/10/18 18:20 04/10/18 20:57 Glucose (Fingerstick) 86 mg/dL (70-99) 198 mg/dL (70-99) 473 mg/dL (70-99) Troponin I Quantitative < 0.017 ng/mL (0.000-0.055) Test 04/11/18 04:00 04/11/18 08:11 04/11/18 11:32 04/11/18 17:13 Iron Level 23 ug/dL (50-170) Total Iron Binding Capacity 347 ug/dL (250-450) Iron Saturation 7 % (15-34) Ferritin 63 ng/mL (8-252) Glucose (Fingerstick) 299 mg/dL (70-99) 398 mg/dL (70-99) 543 mg/dL (70-99) Test 04/11/18 21:19 04/12/18 07:40 04/12/18 08:30 Glucose (Fingerstick) 497 mg/dL (70-99) 275 mg/dL (70-99) White Blood Count 23.5 x10^3/uL (4.0-11.0) Red Blood Count 3.65 x10^6/uL (3.50-5.40) Hemoglobin 10.3 g/dL (12.0-15.5) Hematocrit 30.3 % (36.0-47.0) Mean Corpuscular Volume 83 fL (79-100) Mean Corpuscular Hemoglobin 28 pg (25-35) Mean Corpuscular Hemoglobin Concent 34 g/dL (31-37) Red Cell Distribution Width 14.8 % (11.5-14.5) Platelet Count 369 x10^3/uL (140-400) Neutrophils (%) (Auto) 84 % (31-73) Lymphocytes (%) (Auto) 10 % (24-48) Monocytes (%) (Auto) 5 % (0-9) Eosinophils (%) (Auto) 0 % (0-3) Basophils (%) (Auto) 0 % (0-3) Neutrophils # (Auto) 19.8 x10^3uL (1.8-7.7) Lymphocytes # (Auto) 2.4 x10^3/uL (1.0-4.8) Monocytes # (Auto) 1.3 x10^3/uL (0.0-1.1) Eosinophils # (Auto) 0.0 x10^3/uL (0.0-0.7) Basophils # (Auto) 0.0 x10^3/uL (0.0-0.2) Segmented Neutrophils % 74 % (35-66) Band Neutrophils % 10 % (0-9) Lymphocytes % 14 % (24-48) Monocytes % 2 % (0-10) Platelet Estimate Adequate (ADEQUATE) Anisocytosis Slight Microcytosis Slight Sodium Level 140 mmol/L (136-145) Potassium Level 4.0 mmol/L (3.5-5.1) Chloride Level 103 mmol/L (98-107) Carbon Dioxide Level 26 mmol/L (21-32) Anion Gap 11 (6-14) Blood Urea Nitrogen 24 mg/dL (7-20) Creatinine 1.1 mg/dL (0.6-1.0) Estimated GFR (Cockcroft-Gault) 60.9 Glucose Level 270 mg/dL (70-99) Calcium Level 9.6 mg/dL (8.5-10.1) Laboratory Tests Test 04/11/18 11:32 04/11/18 17:13 04/11/18 21:19 04/12/18 07:40 Glucose (Fingerstick) 398 mg/dL (70-99) 543 mg/dL (70-99) 497 mg/dL (70-99) 275 mg/dL (70-99) Test 04/12/18 08:30 White Blood Count 23.5 x10^3/uL (4.0-11.0) Red Blood Count 3.65 x10^6/uL (3.50-5.40) Hemoglobin 10.3 g/dL (12.0-15.5) Hematocrit 30.3 % (36.0-47.0) Mean Corpuscular Volume 83 fL (79-100) Mean Corpuscular Hemoglobin 28 pg (25-35) Mean Corpuscular Hemoglobin Concent 34 g/dL (31-37) Red Cell Distribution Width 14.8 % (11.5-14.5) Platelet Count 369 x10^3/uL (140-400) Neutrophils (%) (Auto) 84 % (31-73) Lymphocytes (%) (Auto) 10 % (24-48) Monocytes (%) (Auto) 5 % (0-9) Eosinophils (%) (Auto) 0 % (0-3) Basophils (%) (Auto) 0 % (0-3) Neutrophils # (Auto) 19.8 x10^3uL (1.8-7.7) Lymphocytes # (Auto) 2.4 x10^3/uL (1.0-4.8) Monocytes # (Auto) 1.3 x10^3/uL (0.0-1.1) Eosinophils # (Auto) 0.0 x10^3/uL (0.0-0.7) Basophils # (Auto) 0.0 x10^3/uL (0.0-0.2) Segmented Neutrophils % 74 % (35-66) Band Neutrophils % 10 % (0-9) Lymphocytes % 14 % (24-48) Monocytes % 2 % (0-10) Platelet Estimate Adequate (ADEQUATE) Anisocytosis Slight Microcytosis Slight Sodium Level 140 mmol/L (136-145) Potassium Level 4.0 mmol/L (3.5-5.1) Chloride Level 103 mmol/L (98-107) Carbon Dioxide Level 26 mmol/L (21-32) Anion Gap 11 (6-14) Blood Urea Nitrogen 24 mg/dL (7-20) Creatinine 1.1 mg/dL (0.6-1.0) Estimated GFR (Cockcroft-Gault) 60.9 Glucose Level 270 mg/dL (70-99) Calcium Level 9.6 mg/dL (8.5-10.1) Medications Active Scripts Medications Dose Route/Sig Max Daily Dose Days Date Category Benadryl (Diphenhydramine Hcl) 25 Mg Capsule 1 Cap PO PRN BID PRN 04/09/18 Reported Tylenol (Acetaminophen) 325 Mg Tablet 2 Tab PO PRN Q4HRS 04/09/18 Reported Aspir-Low (Aspirin) 81 Mg Tablet. 1 Tab PO DAILY 04/09/18 Reported [place] Solostar (Insulin Glargine,Hum.rec.anlog) 300 Unit/1 Ml Insuln.pen 30 Unit SQ HS 04/09/18 Reported Losartan-Hctz 100-12.5 Mg Tab (Losartan/Hydrochlorothiazide) 1 Each Tablet 1 Tab PO DAILY 04/09/18 Reported Glimepiride 4 Mg Tablet 4 Mg PO BID 04/09/18 Reported Pravastatin Sodium 40 Mg Tablet 40 Mg PO DAILY 04/09/18 Reported Clopidogrel (Clopidogrel Bisulfate) 75 Mg Tablet 75 Mg PO DAILY 04/09/18 Reported Metformin Hcl 1,000 Mg Tablet 1,000 Mg PO BID 04/09/18 Reported Impression . 1. Abnormal CT chest revealing left upper lobe mass like consolidation with air bronchogram compatible with pneumonia, gram negative. 2. Tobacco dependence. 3. Acute exacerbation of chronic obstructive pulmonary disease. 4. Pleurisy. 5. Mild protein malnutrition, present upon admission. 6. Positive drug screen for marijuana. 7. Peripheral vascular disease. 8. leukocytosis, increase today, steroid induced, off now Plan . RESP STATUS IS COMPENSATED SURGERY CONSULTED 1. Continue current antibiotics. increase wbc. cxr today 2. Nonsteroidals for the pleurisy. 3. The patient instructed on the importance of discontinuing tobacco use. 4. Follow Cardiology input. 5. Followup in this Outpatient Department with a repeat CT in 2 months. 6. off steroids VETO WANG MD Apr 12, 2018 10:30
--- NOTE | 2018-04-12 11:29 | RAD ---
Portable chest, 04/12/2018: HISTORY: Pneumonia Comparison is made to a study from 04/09/2018. The heart size and pulmonary vascularity are normal. Infiltrate seen medially in the left upper lobe on the recent CT study is not radiographically visible. No acute infiltrate is seen. No pleural fluid is evident. IMPRESSION: No acute cardiopulmonary abnormality is detected. Electronically signed by: Manpreet Katz MD (04/12/2018 11:25 AM) [facility]
[2018-04-12 11:42] VITALS: BP 159/72
[2018-04-12] MEDS: cefTRIAXone IV Push 1 GM VIAL. IVP SCH (12:17)
[2018-04-12] MEDS: SODIUM CHLORIDE 0.65% NASAL SPRAY 45ML BOTTLE. NS SCH ×3 (12:17→21:14)
[2018-04-12 14:49] VITALS: BP 108/56
[2018-04-12 19:50] VITALS: BP 133/67
[2018-04-12] MEDS: SIMVASTATIN 40 MG TABLET. PO SCH (20:04)
[2018-04-12] MEDS ORDERED: NON FORMULARY ITEM SQ SCH (21:00)
[2018-04-12] MEDS: ACETAMINOPHEN 325 MG TABLET. PO PRN (21:22)
[2018-04-12 23:00] VITALS: BP 169/67
[2018-04-13 03:26] VITALS: BP 107/65
[2018-04-13 04:32] LABS: BASO # 0.1 x10^3/uL (0.0-0.2); BASO % 1 % (0-3); EOS # 0.2 x10^3/uL (0.0-0.7); EOS % 1 % (0-3); HEMATOCRIT 29.4 % (36.0-47.0); HEMOGLOBIN 10.2 g/dL (12.0-15.5); LYMPH # 5.1 x10^3/uL (1.0-4.8); LYMPH % 31 % (24-48); MEAN CORPUSCULAR HEMOGLOBIN 29 pg (25-35); MEAN CORPUSCULAR HGB CONC 35 g/dL (31-37); MEAN CORPUSCULAR VOLUME 83 fL (79-100); MONO # 1.1 x10^3/uL (0.0-1.1); MONO % 7 % (0-9); NEUT # 10.1 x10^3uL (1.8-7.7); NEUT % 61 % (31-73); PLATELET COUNT 349 x10^3/uL (140-400); RED BLOOD COUNT 3.56 x10^6/uL (3.50-5.40); WHITE BLOOD COUNT 16.6 x10^3/uL (4.0-11.0)
[2018-04-13 04:48] LABS: POTASSIUM 3.8 mmol/L (3.5-5.1)
[2018-04-13 07:00] VITALS: BP 174/80
[2018-04-13] MEDS: INSULIN LISPRO 300 UNITS/3 ML INSULN.PEN. SQ SCH ×2 (07:30→08:00)
[2018-04-13] MEDS: IPRATRPIUM/ALBUTEROL 0.5/2.5MG 3 ML NEBU. NEB SCH ×2 (08:00→11:22)
[2018-04-13] MEDS: LOSARTAN POTASSIUM 50 MG TABLET. PO SCH (08:25)
[2018-04-13] MEDS: amLODIPine BESYLATE 5 MG TABLET PO SCH (08:26)
[2018-04-13] MEDS: CLOPIDOGREL BISULFATE 75 MG TABLET PO SCH (08:26)
[2018-04-13] MEDS: AZITHROMYCIN 250 MG TABLET. PO SCH (08:26)
[2018-04-13] MEDS: ASPIRIN CHEWABLE 81 MG TABLET. PO SCH (08:26)
[2018-04-13] MEDS: GLIMEPIRIDE 2 MG TABLET. PO SCH (08:27)
[2018-04-13] MEDS: LACTOBACILLUS RHAMNOSUS GG 1 CAPSULE. PO SCH (08:27)
[2018-04-13] MEDS: SODIUM CHLORIDE 0.65% NASAL SPRAY 45ML BOTTLE. NS SCH ×2 (08:27→10:54)
--- NOTE | 2018-04-13 10:17 | PDOC ---
PROGRESS NOTES Subjective Subjective feels better. nurse notes that vascular surgeon called and could not see her and recommended dr. Rubi order an out patient angiogram for RLE. cxr neg Objective Objective Vital Signs Date Time Temp Pulse Resp B/P (MAP) Pulse Ox O2 Delivery O2 Flow Rate FiO2 04/13/18 08:26 70 04/13/18 07:00 98.2 18 174/80 (111) 97 Room Air 98.2 04/13/18 03:26 98.0 Intake and Output 04/13/18 07:00 Intake Total 520 ml Balance 520 ml Intake Oral 520 ml # Voids 6 # Bowel Movements 2 Physical Exam Abdomen: Soft Heart: Regular rate, Normal S1, Normal S2 Extremities: No edema General: Alert HEENT: Atraumatic Lungs: Clear to auscultation Neuro: Normal speech Psych/Mental Status: Mental status NL Skin: No rashes Assessment Assessment Problems Confluent left upper lobe infiltrate with air bronchograms with a recent cough and some pleuritic chest pain in left anterior chest, most likely consistent with pneumonia. 2. Pleuritic pain secondary to the pneumonia. improved 3. Diabetes mellitus type 2, on insulin with hyperglycemia.off of steroids 4. Hypertension. 5. Hyperlipidemia. 6. severe peripheral arterial disease with a history of revascularization of the left lower extremity in 2007. severe PAD RLE with claudication 7. Coronary artery calcifications noted on the CAT scan of the chest. 8. Anemia of chronic disease polysubstance abuse. cigarettes and marijuana Medical Problems: (1) Pleurisy Status: Acute Plan Plan of Care switch to po abx dismiss today out patient angiogram per dr. rubi ct chest in 2 months Comment Review of Relevant I have reviewed the following items ranjan (where applicable) has been applied. Labs Laboratory Tests Test 04/11/18 11:32 04/11/18 17:13 04/11/18 21:19 04/12/18 07:40 Glucose (Fingerstick) 398 mg/dL (70-99) 543 mg/dL (70-99) 497 mg/dL (70-99) 275 mg/dL (70-99) Test 04/12/18 08:30 04/12/18 11:23 04/12/18 16:02 04/12/18 17:16 White Blood Count 23.5 x10^3/uL (4.0-11.0) Red Blood Count 3.65 x10^6/uL (3.50-5.40) Hemoglobin 10.3 g/dL (12.0-15.5) Hematocrit 30.3 % (36.0-47.0) Mean Corpuscular Volume 83 fL (79-100) Mean Corpuscular Hemoglobin 28 pg (25-35) Mean Corpuscular Hemoglobin Concent 34 g/dL (31-37) Red Cell Distribution Width 14.8 % (11.5-14.5) Platelet Count 369 x10^3/uL (140-400) Neutrophils (%) (Auto) 84 % (31-73) Lymphocytes (%) (Auto) 10 % (24-48) Monocytes (%) (Auto) 5 % (0-9) Eosinophils (%) (Auto) 0 % (0-3) Basophils (%) (Auto) 0 % (0-3) Neutrophils # (Auto) 19.8 x10^3uL (1.8-7.7) Lymphocytes # (Auto) 2.4 x10^3/uL (1.0-4.8) Monocytes # (Auto) 1.3 x10^3/uL (0.0-1.1) Eosinophils # (Auto) 0.0 x10^3/uL (0.0-0.7) Basophils # (Auto) 0.0 x10^3/uL (0.0-0.2) Segmented Neutrophils % 74 % (35-66) Band Neutrophils % 10 % (0-9) Lymphocytes % 14 % (24-48) Monocytes % 2 % (0-10) Platelet Estimate Adequate (ADEQUATE) Anisocytosis Slight Microcytosis Slight Sodium Level 140 mmol/L (136-145) Potassium Level 4.0 mmol/L (3.5-5.1) Chloride Level 103 mmol/L (98-107) Carbon Dioxide Level 26 mmol/L (21-32) Anion Gap 11 (6-14) Blood Urea Nitrogen 24 mg/dL (7-20) Creatinine 1.1 mg/dL (0.6-1.0) Estimated GFR (Cockcroft-Gault) 60.9 Glucose Level 270 mg/dL (70-99) Calcium Level 9.6 mg/dL (8.5-10.1) Glucose (Fingerstick) 169 mg/dL (70-99) 51 mg/dL (70-99) 66 mg/dL (70-99) Test 04/12/18 21:06 04/13/18 04:25 04/13/18 07:05 Glucose (Fingerstick) 240 mg/dL (70-99) 158 mg/dL (70-99) White Blood Count 16.6 x10^3/uL (4.0-11.0) Red Blood Count 3.56 x10^6/uL (3.50-5.40) Hemoglobin 10.2 g/dL (12.0-15.5) Hematocrit 29.4 % (36.0-47.0) Mean Corpuscular Volume 83 fL (79-100) Mean Corpuscular Hemoglobin 29 pg (25-35) Mean Corpuscular Hemoglobin Concent 35 g/dL (31-37) Red Cell Distribution Width 15.0 % (11.5-14.5) Platelet Count 349 x10^3/uL (140-400) Neutrophils (%) (Auto) 61 % (31-73) Lymphocytes (%) (Auto) 31 % (24-48) Monocytes (%) (Auto) 7 % (0-9) Eosinophils (%) (Auto) 1 % (0-3) Basophils (%) (Auto) 1 % (0-3) Neutrophils # (Auto) 10.1 x10^3uL (1.8-7.7) Lymphocytes # (Auto) 5.1 x10^3/uL (1.0-4.8) Monocytes # (Auto) 1.1 x10^3/uL (0.0-1.1) Eosinophils # (Auto) 0.2 x10^3/uL (0.0-0.7) Basophils # (Auto) 0.1 x10^3/uL (0.0-0.2) Sodium Level 143 mmol/L (136-145) Potassium Level 3.8 mmol/L (3.5-5.1) Chloride Level 106 mmol/L (98-107) Carbon Dioxide Level 27 mmol/L (21-32) Anion Gap 10 (6-14) Blood Urea Nitrogen 23 mg/dL (7-20) Creatinine 1.0 mg/dL (0.6-1.0) Estimated GFR (Cockcroft-Gault) 68.0 Glucose Level 164 mg/dL (70-99) Calcium Level 9.0 mg/dL (8.5-10.1) Laboratory Tests Test 04/12/18 11:23 04/12/18 16:02 04/12/18 17:16 04/12/18 21:06 Glucose (Fingerstick) 169 mg/dL (70-99) 51 mg/dL (70-99) 66 mg/dL (70-99) 240 mg/dL (70-99) Test 04/13/18 04:25 04/13/18 07:05 White Blood Count 16.6 x10^3/uL (4.0-11.0) Red Blood Count 3.56 x10^6/uL (3.50-5.40) Hemoglobin 10.2 g/dL (12.0-15.5) Hematocrit 29.4 % (36.0-47.0) Mean Corpuscular Volume 83 fL (79-100) Mean Corpuscular Hemoglobin 29 pg (25-35) Mean Corpuscular Hemoglobin Concent 35 g/dL (31-37) Red Cell Distribution Width 15.0 % (11.5-14.5) Platelet Count 349 x10^3/uL (140-400) Neutrophils (%) (Auto) 61 % (31-73) Lymphocytes (%) (Auto) 31 % (24-48) Monocytes (%) (Auto) 7 % (0-9) Eosinophils (%) (Auto) 1 % (0-3) Basophils (%) (Auto) 1 % (0-3) Neutrophils # (Auto) 10.1 x10^3uL (1.8-7.7) Lymphocytes # (Auto) 5.1 x10^3/uL (1.0-4.8) Monocytes # (Auto) 1.1 x10^3/uL (0.0-1.1) Eosinophils # (Auto) 0.2 x10^3/uL (0.0-0.7) Basophils # (Auto) 0.1 x10^3/uL (0.0-0.2) Sodium Level 143 mmol/L (136-145) Potassium Level 3.8 mmol/L (3.5-5.1) Chloride Level 106 mmol/L (98-107) Carbon Dioxide Level 27 mmol/L (21-32) Anion Gap 10 (6-14) Blood Urea Nitrogen 23 mg/dL (7-20) Creatinine 1.0 mg/dL (0.6-1.0) Estimated GFR (Cockcroft-Gault) 68.0 Glucose Level 164 mg/dL (70-99) Calcium Level 9.0 mg/dL (8.5-10.1) Glucose (Fingerstick) 158 mg/dL (70-99) Microbiology 04/11/18 - Final, Complete 04/11/18 - Final, Complete 04/11/18 - Final, Complete 04/11/18 - Final, Complete 04/11/18 Gram Stain Evaluation - Final, Complete 04/11/18 Sputum Culture - Final, Complete Medications Current Medications Aspirin (Children'S Aspirin) 162 mg 1X ONCE PO Last administered on 04/09/18at 18:05; Start 04/09/18 at 15:00; Stop 04/09/18 at 15:01; Status DC Nitroglycerin (Nitrostat) 0.4 mg PRN Q5MIN PRN SL CP RATING > 1/10; Start 04/09 at 15:00; Stop 04/10/18 at 14:59; Status DC Morphine Sulfate (Morphine Sulfate) 5 mg 1X ONCE IV Last administered on at 18:05; Start 04/09/18 at 17:00; Stop 04/09/18 at 17:01; Status DC Ondansetron HCl (Zofran) 4 mg PRN Q8HRS PRN IV NAUSEA/VOMITING; Start 04/09/18 at 18:15; Stop 04/10/18 at 18:14; Status DC Morphine Sulfate (Morphine Sulfate) 4 mg PRN Q2HR PRN IV PAIN Last administered on 04/09/18at 20:38; Start 04/09/18 at 18:15; Stop 04/10/18 at 18:14 ; Status DC Acetaminophen (Tylenol) 650 mg PRN Q4HRS PRN PO FEVER Last administered on 04/10at 00:02; Start 04/09/18 at 18:15; Stop 04/10/18 at 18:14; Status DC Insulin Human Lispro (HumaLOG) 0-5 UNITS TIDWMEALS SQ ; Start 04/10/18 at 08:00 ; Stop 04/10/18 at 10:23; Status DC Dextrose (Dextrose 50%-Water Syringe) 12.5 gm PRN Q15MIN PRN IV SEE COMMENTS; Start 04/09/18 at 18:15; Stop 04/12/18 at 14:11; Status DC Clopidogrel Bisulfate (Plavix) 75 mg DAILYWBKFT PO Last administered on at 08:26; Start 04/10/18 at 08:00 Simvastatin (Zocor) 40 mg QHS PO Last administered on 04/12/18at 20:04; Start at 21:00 Metformin HCl (Glucophage) 1,000 mg BIDWMEALS PO ; Start 04/10/18 at 18:30; Stop 04/10/18 at 18:30; Status DC Glyburide (Diabeta) 5 mg BIDWMEALS PO ; Start 04/10/18 at 08:00; Stop 04/10/18 at 08:00; Status DC Iohexol (Omnipaque 300 Mg/ml) 75 ml 1X ONCE IV ; Start 04/09/18 at 18:45; Stop 04/09/18 at 18:46; Status DC Info (CONTRAST GIVEN -- Rx MONITORING) 1 each PRN DAILY PRN MC SEE COMMENTS; Start 04/09/18 at 19:00; Stop 04/11/18 at 18:59; Status DC Metformin HCl (Glucophage) 1,000 mg BIDWMEALS PO ; Start 04/12/18 at 08:00; Stop 04/12/18 at 08:00; Status DC Glimepiride (Amaryl) 4 mg DAILY PO Last administered on 04/10/18at 09:33; Start 04/10/18 at 09:00; Stop 04/10/18 at 10:23; Status DC Losartan Potassium (Cozaar) 100 mg DAILY PO Last administered on 04/13/18at 08: 25; Start 04/10/18 at 09:00 Hydrochlorothiazide (Microzide) 12.5 mg DAILY PO Last administered on at 08:39; Start 04/10/18 at 09:00; Stop 04/12/18 at 09:59; Status DC Insulin Glargine (Lantus) 30 units QHS SQ ; Start 04/09/18 at 21:00; Stop at 21:00; Status DC Aspirin (Children'S Aspirin) 81 mg DAILYWBKFT PO Last administered on at 09:33; Start 04/10/18 at 08:00; Stop 04/10/18 at 10:23; Status DC Acetaminophen (Tylenol) 650 mg PRN Q6HRS PRN PO MILD PAIN / TEMP Last administered on 04/12/18at 21:22; Start 04/09/18 at 19:00 Magnesium Sulfate 50 ml @ 25 mls/hr 1X ONCE IV Last administered on 04/09/18at 20:00; Start 04/09/18 at 19:00; Stop 04/09/18 at 20:59; Status DC Non-Formulary Medication 30 ea QHS SQ ; Start 04/09/18 at 22:00; Stop 04/09/18 at 22:00; Status DC Non-Formulary Medication 30 ea QHS SQ Last administered on 04/09/18at 22:03; Start 04/09/18 at 22:00; Stop 04/10/18 at 10:23; Status DC Influenza Virus Vaccine (Afluria Trivalent [id number] Syringe) 0.5 ml ONCE ONCE VAX IM Last administered on 04/10/18at 16:31; Start 04/10/18 at 09:00; Stop at 09:01; Status DC Aspirin (Children'S Aspirin) 162 mg DAILYWBKFT PO Last administered on at 08:26; Start 04/10/18 at 11:00 Glimepiride (Amaryl) 4 mg BIDWMEALS PO Last administered on 04/13/18at 08:27; Start 04/10/18 at 17:00 Non-Formulary Medication 15 ea QHS SQ Last administered on 04/10/18at 21:00; Start 04/10/18 at 21:00; Stop 04/11/18 at 11:03; Status DC Ceftriaxone Sodium 1 gm/ Dextrose 50 ml @ 100 mls/hr Q24H IV ; Start 04/10/18 at 10:15; Status UNV Azithromycin (Zithromax) 500 mg 1X ONCE PO Last administered on 04/10/18at 11: 16; Start 04/10/18 at 11:00; Stop 04/10/18 at 11:01; Status DC Azithromycin (Zithromax) 250 mg DAILY PO Last administered on 04/13/18 08:26; Start 04/11/18 at 09:00 Insulin Human Lispro (HumaLOG) 0-6 UNITS BG 300-39... TIDWMEALS SQ Last administered on 04/12/18at 08:48; Start 04/10/18 at 12:00 Acetaminophen/ Hydrocodone Bitart (Lortab 5/325) 1 tab PRN Q4HRS PRN PO MODERATE-SEVERE PAIN; Start 04/10/18 at 10:15 Guaifenesin (Robitussin Dm) 10 ml PRN Q6HRS PRN PO COUGH; Start 04/10/18 at 10: 15 Amlodipine Besylate (Norvasc) 5 mg DAILY PO Last administered on 04/13/18at 08: 26; Start 04/10/18 at 11:00 Ceftriaxone Sodium (Rocephin) 1 gm Q24H IVP Last administered on 04/12/18at 12: 17; Start 04/10/18 at 11:00 Lactobacillus Rhamnosus (Culturelle) 1 cap BID PO Last administered on 08:27; Start 04/10/18 at 11:00 Albuterol/ Ipratropium (Duoneb) 3 ml RTQID NEB Last administered on 04/12/18at 20:59; Start 04/10/18 at 12:00 Methylprednisolone Sodium Succinate (SOLU-Medrol 125MG VIAL) 125 mg 1X ONCE IV Last administered on 04/10/18at 16:31; Start 04/10/18 at 15:00; Stop 04/10/18 at 15:01; Status DC Methylprednisolone Sodium Succinate (SOLU-Medrol 125MG VIAL) 125 mg DAILY IV Last administered on 04/11/18at 08:44; Start 04/11/18 at 09:00; Stop 04/11/18 at 10:54; Status DC Ketorolac Tromethamine (Toradol 15mg Vial) 15 mg PRN Q6HRS PRN IV PAIN Last administered on 04/11/18at 23:35; Start 04/10/18 at 14:45; Stop 04/15/18 at 14:44 Insulin Human Lispro (HumaLOG) 3 units 1X ONCE SQ Last administered on at 22:16; Start 04/10/18 at 22:30; Stop 04/10/18 at 22:31; Status DC Metformin HCl (Glucophage) 1,000 mg BIDWMEALS PO Last administered on at 08:25; Start 04/12/18 at 08:00 Metformin HCl (Glucophage) 1,000 mg BIDWMEALS PO ; Start 04/11/18 at 17:00; Status UNV Non-Formulary Medication 25 ea QHS SQ ; Start 04/11/18 at 21:00; Stop 04/11/18 at 21:00; Status DC Insulin Human Lispro (HumaLOG) 14 units 1X ONCE SQ Last administered on at 17:45; Start 04/11/18 at 17:30; Stop 04/11/18 at 17:37; Status DC Insulin Human Lispro (HumaLOG) 10 units TIDAC SQ Last administered on at 08:47; Start 04/12/18 at 07:30; Stop 04/12/18 at 09:59; Status DC Dextrose (Dextrose 50%-Water Syringe) 12.5 gm PRN Q15MIN PRN IV SEE COMMENTS; Start 04/11/18 at 17:45 Non-Formulary Medication 30 ea QHS SQ Last administered on 04/11/18at 21:00; Start 04/11/18 at 21:00; Stop 04/12/18 at 09:59; Status DC Insulin Human Lispro (HumaLOG) 2 units 1X ONCE SQ ; Start 04/11/18 at 21:00; Stop 04/11/18 at 21:00; Status DC Insulin Human Lispro (HumaLOG) 4 units 1X ONCE SQ Last administered on at 21:21; Start 04/11/18 at 18:15; Stop 04/11/18 at 18:16; Status DC Insulin Human Lispro (HumaLOG) 2 units PRN QHS PRN SQ SEE COMMENT; Start at 18:30; Stop 04/11/18 at 21:00; Status DC Insulin Human Lispro (HumaLOG) 4 units 1X ONCE SQ ; Start 04/11/18 at 18:30; Stop 04/11/18 at 18:30; Status DC Insulin Human Lispro (HumaLOG) 4 units PRN QHS PRN SQ SEE INSTRUCTION; Start at 21:00; Stop 04/11/18 at 21:01; Status DC Insulin Human Lispro (HumaLOG) 14 units TIDAC SQ Last administered on at 12:27; Start 04/12/18 at 11:30 Non-Formulary Medication 36 ea QHS SQ Last administered on 04/12/18at 21:00; Start 04/12/18 at 21:00 Sodium Chloride (Saline Mist Nasal) 1 emilia QID NS Last administered on at 08:27; Start 04/12/18 at 13:00 Active Scripts Active Reported Benadryl (Diphenhydramine Hcl) 25 Mg Capsule 1 Cap PO PRN BID PRN Tylenol (Acetaminophen) 325 Mg Tablet 2 Tab PO PRN Q4HRS Aspir-Low (Aspirin) 81 Mg Tablet.dr 1 Tab PO DAILY Toujeo Solostar (Insulin Glargine,Hum.rec.anlog) 300 Unit/1 Ml Insuln.pen 30 Unit SQ HS Losartan-Hctz 100-12.5 Mg Tab (Losartan/Hydrochlorothiazide) 1 Each Tablet 1 Tab PO DAILY Glimepiride 4 Mg Tablet 4 Mg PO BID Pravastatin Sodium 40 Mg Tablet 40 Mg PO DAILY Clopidogrel (Clopidogrel Bisulfate) 75 Mg Tablet 75 Mg PO DAILY Metformin Hcl 1,000 Mg Tablet 1,000 Mg PO BID Vitals/I & O Vital Sign - Last 24 Hours 04/12/18 04/12/18 04/12/18 04/12/18 11:42 13:24 14:49 16:36 Temp 98.0 98.1 98.0 98.1 Pulse 81 92 Resp 18 16 B/P (MAP) 159/72 (101) 108/56 (73) Pulse Ox 93 99 96 O2 Delivery Room Air Room Air Room Air Room Air 04/12/18 04/12/18 04/12/18 04/13/18 19:50 21:02 23:00 03:26 Temp 98.1 98.0 98.1 98.0 Pulse 88 80 97 Resp 20 16 16 B/P (MAP) 133/67 (89) 169/67 (101) 107/65 (79) Pulse Ox 97 97 O2 Delivery Room Air Room Air Room Air Room Air O2 Flow Rate 98.0 04/13/18 04/13/1804/13/18 07:00 08:25 08:26 Temp 98.2 98.2 Pulse 65 70 70 Resp 18 B/P (MAP) 174/80 (111) Pulse Ox 97 O2 Delivery Room Air Intake and Output 04/12/18 04/12/18 04/13/18 15:00 23:00 07:00 Intake Total 400 ml 120 ml Balance 400 ml 120 ml JOSELO MAHMOOD MD Apr 13, 2018 10:17
--- NOTE | 2018-04-13 10:17 | PDOC ---
PULMONARY PROGRESS NOTES Subjective PT WITH NO INCREASE SOA FEELS BETTER Vitals Vital Signs Date Time Temp Pulse Resp B/P (MAP) Pulse Ox O2 Delivery O2 Flow Rate FiO2 04/13/18 08:26 70 04/13/18 07:00 98.2 18 174/80 (111) 97 Room Air 98.2 04/13/18 03:26 98.0 ROS: No Nausea, No Chest Pain, No Abdominal Pain, No Increase Cough Lungs: Clear Cardiovascular: S1, S2 Abdomen: Soft Neuro Exam: Alert Extremities: No Edema Skin: Warm Labs Laboratory Tests Test 04/11/18 11:32 04/11/18 17:13 04/11/18 21:19 04/12/18 07:40 Glucose (Fingerstick) 398 mg/dL (70-99) 543 mg/dL (70-99) 497 mg/dL (70-99) 275 mg/dL (70-99) Test 04/12/18 08:30 04/12/18 11:23 04/12/18 16:02 04/12/18 17:16 White Blood Count 23.5 x10^3/uL (4.0-11.0) Red Blood Count 3.65 x10^6/uL (3.50-5.40) Hemoglobin 10.3 g/dL (12.0-15.5) Hematocrit 30.3 % (36.0-47.0) Mean Corpuscular Volume 83 fL (79-100) Mean Corpuscular Hemoglobin 28 pg (25-35) Mean Corpuscular Hemoglobin Concent 34 g/dL (31-37) Red Cell Distribution Width 14.8 % (11.5-14.5) Platelet Count 369 x10^3/uL (140-400) Neutrophils (%) (Auto) 84 % (31-73) Lymphocytes (%) (Auto) 10 % (24-48) Monocytes (%) (Auto) 5 % (0-9) Eosinophils (%) (Auto) 0 % (0-3) Basophils (%) (Auto) 0 % (0-3) Neutrophils # (Auto) 19.8 x10^3uL (1.8-7.7) Lymphocytes # (Auto) 2.4 x10^3/uL (1.0-4.8) Monocytes # (Auto) 1.3 x10^3/uL (0.0-1.1) Eosinophils # (Auto) 0.0 x10^3/uL (0.0-0.7) Basophils # (Auto) 0.0 x10^3/uL (0.0-0.2) Segmented Neutrophils % 74 % (35-66) Band Neutrophils % 10 % (0-9) Lymphocytes % 14 % (24-48) Monocytes % 2 % (0-10) Platelet Estimate Adequate (ADEQUATE) Anisocytosis Slight Microcytosis Slight Sodium Level 140 mmol/L (136-145) Potassium Level 4.0 mmol/L (3.5-5.1) Chloride Level 103 mmol/L (98-107) Carbon Dioxide Level 26 mmol/L (21-32) Anion Gap 11 (6-14) Blood Urea Nitrogen 24 mg/dL (7-20) Creatinine 1.1 mg/dL (0.6-1.0) Estimated GFR (Cockcroft-Gault) 60.9 Glucose Level 270 mg/dL (70-99) Calcium Level 9.6 mg/dL (8.5-10.1) Glucose (Fingerstick) 169 mg/dL (70-99) 51 mg/dL (70-99) 66 mg/dL (70-99) Test 04/12/18 21:06 04/13/18 04:25 04/13/18 07:05 Glucose (Fingerstick) 240 mg/dL (70-99) 158 mg/dL (70-99) White Blood Count 16.6 x10^3/uL (4.0-11.0) Red Blood Count 3.56 x10^6/uL (3.50-5.40) Hemoglobin 10.2 g/dL (12.0-15.5) Hematocrit 29.4 % (36.0-47.0) Mean Corpuscular Volume 83 fL (79-100) Mean Corpuscular Hemoglobin 29 pg (25-35) Mean Corpuscular Hemoglobin Concent 35 g/dL (31-37) Red Cell Distribution Width 15.0 % (11.5-14.5) Platelet Count 349 x10^3/uL (140-400) Neutrophils (%) (Auto) 61 % (31-73) Lymphocytes (%) (Auto) 31 % (24-48) Monocytes (%) (Auto) 7 % (0-9) Eosinophils (%) (Auto) 1 % (0-3) Basophils (%) (Auto) 1 % (0-3) Neutrophils # (Auto) 10.1 x10^3uL (1.8-7.7) Lymphocytes # (Auto) 5.1 x10^3/uL (1.0-4.8) Monocytes # (Auto) 1.1 x10^3/uL (0.0-1.1) Eosinophils # (Auto) 0.2 x10^3/uL (0.0-0.7) Basophils # (Auto) 0.1 x10^3/uL (0.0-0.2) Sodium Level 143 mmol/L (136-145) Potassium Level 3.8 mmol/L (3.5-5.1) Chloride Level 106 mmol/L (98-107) Carbon Dioxide Level 27 mmol/L (21-32) Anion Gap 10 (6-14) Blood Urea Nitrogen 23 mg/dL (7-20) Creatinine 1.0 mg/dL (0.6-1.0) Estimated GFR (Cockcroft-Gault) 68.0 Glucose Level 164 mg/dL (70-99) Calcium Level 9.0 mg/dL (8.5-10.1) Laboratory Tests Test 04/12/18 11:23 04/12/18 16:02 04/12/18 17:16 04/12/18 21:06 Glucose (Fingerstick) 169 mg/dL (70-99) 51 mg/dL (70-99) 66 mg/dL (70-99) 240 mg/dL (70-99) Test 04/13/18 04:25 04/13/18 07:05 White Blood Count 16.6 x10^3/uL (4.0-11.0) Red Blood Count 3.56 x10^6/uL (3.50-5.40) Hemoglobin 10.2 g/dL (12.0-15.5) Hematocrit 29.4 % (36.0-47.0) Mean Corpuscular Volume 83 fL (79-100) Mean Corpuscular Hemoglobin 29 pg (25-35) Mean Corpuscular Hemoglobin Concent 35 g/dL (31-37) Red Cell Distribution Width 15.0 % (11.5-14.5) Platelet Count 349 x10^3/uL (140-400) Neutrophils (%) (Auto) 61 % (31-73) Lymphocytes (%) (Auto) 31 % (24-48) Monocytes (%) (Auto) 7 % (0-9) Eosinophils (%) (Auto) 1 % (0-3) Basophils (%) (Auto) 1 % (0-3) Neutrophils # (Auto) 10.1 x10^3uL (1.8-7.7) Lymphocytes # (Auto) 5.1 x10^3/uL (1.0-4.8) Monocytes # (Auto) 1.1 x10^3/uL (0.0-1.1) Eosinophils # (Auto) 0.2 x10^3/uL (0.0-0.7) Basophils # (Auto) 0.1 x10^3/uL (0.0-0.2) Sodium Level 143 mmol/L (136-145) Potassium Level 3.8 mmol/L (3.5-5.1) Chloride Level 106 mmol/L (98-107) Carbon Dioxide Level 27 mmol/L (21-32) Anion Gap 10 (6-14) Blood Urea Nitrogen 23 mg/dL (7-20) Creatinine 1.0 mg/dL (0.6-1.0) Estimated GFR (Cockcroft-Gault) 68.0 Glucose Level 164 mg/dL (70-99) Calcium Level 9.0 mg/dL (8.5-10.1) Glucose (Fingerstick) 158 mg/dL (70-99) Medications Active Scripts Medications Dose Route/Sig Max Daily Dose Days Date Category Benadryl (Diphenhydramine Hcl) 25 Mg Capsule 1 Cap PO PRN BID PRN 04/09/18 Reported Tylenol (Acetaminophen) 325 Mg Tablet 2 Tab PO PRN Q4HRS 04/09/18 Reported Aspir-Low (Aspirin) 81 Mg Tablet. 1 Tab PO DAILY 04/09/18 Reported Killian Almeidaostgeraldo (Insulin Glargine,Hum.rec.anlog) 300 Unit/1 Ml Insuln.pen 30 Unit SQ HS 04/09/18 Reported Losartan-Hctz 100-12.5 Mg Tab (Losartan/Hydrochlorothiazide) 1 Each Tablet 1 Tab PO DAILY 04/09/18 Reported Glimepiride 4 Mg Tablet 4 Mg PO BID 04/09/18 Reported Pravastatin Sodium 40 Mg Tablet 40 Mg PO DAILY 04/09/18 Reported Clopidogrel (Clopidogrel Bisulfate) 75 Mg Tablet 75 Mg PO DAILY 04/09/18 Reported Metformin Hcl 1,000 Mg Tablet 1,000 Mg PO BID 04/09/18 Reported Impression . 1. Abnormal CT chest revealing left upper lobe mass like consolidation with air bronchogram compatible with pneumonia, gram negative. 2. Tobacco dependence. 3. Acute exacerbation of chronic obstructive pulmonary disease. 4. Pleurisy. 5. Mild protein malnutrition, present upon admission. 6. Positive drug screen for marijuana. 7. Peripheral vascular disease. 8. leukocytosis, increase today, steroid induced, off now Plan . RESP STATUS IS COMPENSATED SURGERY CONSULTED 1. Continue current antibiotics. wbc improving. change to PO 2. Nonsteroidals for the pleurisy. 3. The patient instructed on the importance of discontinuing tobacco use. 4. Follow Cardiology input. 5. Followup with DR GARCIA with a repeat CT in 4-6 weeks months. 6. off steroids VETO WANG MD Apr 13, 2018 10:17
[2018-04-13] MEDS ORDERED: AZIT250T6 PO (10:21)
[2018-04-13] MEDS ORDERED: Non Formulary Item SQ (10:21)
[2018-04-13] MEDS ORDERED: CEFP200T PO (10:21)
[2018-04-13] MEDS ORDERED: AMLO5TAB7 PO (10:21)
--- NOTE | 2018-04-13 10:23 | DISCH ---
DISCHARGE INSTRUCTIONS Condition on Discharge Condition on Discharge: Stable Activity After Discharge Activity Instructions for Disc: Resume previous activity Diet after Discharge Diet after Discharge: Diabetic No Calorie Level Contacting the DRHannah after DC Call your doctor for: If your condition worsens Follow-Up Follow up with: dr. mahmood [place] [address] Rubi in [address] Matamoros in 3 weeks Follow Up With: ct chest without iv contrast in 2 months JOSELO MAHMOOD MD Apr 13, 2018 10:22
--- NOTE | 2018-04-13 10:31 | PDOC ---
Provider Note Provider Note discharge summary dictated # [id number] JOSELO MAHMOOD MD Apr 13, 2018 10:31
[2018-04-13] MEDS: cefTRIAXone IV Push 1 GM VIAL. IVP SCH (10:53)
[2018-04-13 11:00] VITALS: BP 145/86
--- NOTE | 2018-04-13 15:37 | DS ---
DATE OF DISCHARGE: 04/13/2018 CONSULTANTS: Dr. Matamoros and Dr. Lozada and Dr. Heath. FINAL DIAGNOSES: 1. Left upper lobe infiltrate consistent with pneumonia. 2. Pleuritic pain secondary to pneumonia. 3. Diabetes mellitus type 2, on insulin. 4. Hypertension. 5. Hyperlipidemia. 6. Peripheral arterial disease with history of revascularization of left lower extremity in 2007 and severe peripheral arterial disease involving the right lower extremity on Doppler. 7. Coronary artery calcifications noted on CT of the chest. 8. Anemia. HOSPITAL COURSE: The patient is a 62-year-old female with a history of diabetes mellitus type 2 on insulin, hypertension, hyperlipidemia, peripheral arterial disease. She has a previous left lower extremity arterial bypass procedure and has had moderate bilateral carotid stenosis noted on a recent carotid Doppler without any transient ischemic attack for the evaluation of a right carotid bruit, who was sent to an urgent care facility with a 4-day history of nonproductive cough and 1-day history of pleuritic pain, was sent to the [facility] Emergency Room. She smokes about 6 cigarettes a day. In the Emergency Room, a chest x-ray was done, which was unremarkable. A CAT scan and chest angiogram was negative for a pulmonary embolus, but showed a confluent left upper lobe infiltrate with air bronchograms 4.9 x 3.2 cm consistent with pneumonia and she had prominent coronary artery calcifications without any pericardial effusion or pneumothorax. She had some mild thickening of the esophagus consistent with esophagitis. There was no evidence of pulmonary embolus noted on the CT of the chest angiogram. The patient was seen by Dr. Matamoros and Dr. Lozada for Pulmonary and treated with IV antibiotics. She did receive a single dose of IV Solu-Medrol, which made her blood sugars over 500, which was stopped and she had her insulin adjusted. Her blood pressure was high and amlodipine was added to her blood pressure medication. Her cough and pleuritic pain significantly improved. Her lungs were clear. A followup chest x-ray 04/12/2018 was negative. She was told she needs a CT of the chest without IV contrast in 2 months to follow up with left upper lobe infiltrate. Consult with the vascular surgeon was done, but they could not see them and the vascular surgeon told the nurse who told me that the patient should follow up with Dr. Heath can do the angiogram of the right leg as an outpatient and to evaluate the right lower extremity. She does have a claudication of right leg. We did a Doppler of her right lower extremity, which showed a 90% stenosis of the deep right femoral artery and a 50%-75% of the proximal superficial femoral artery and 50%-75% stenosis of the right common femoral artery. The patient continued to do well and will be dismissed to home on Zithromax 250 mg every day for 2 days, Vantin 200 mg b.i.d. for another 6 days, amlodipine 5 mg every day, losartan HCT 100/12.5 mg every day, pravastatin 40 mg every day, Toujeo insulin 30 units at bedtime as her hemoglobin A1c was 6.1 in 02/2018, metformin 1000 mg b.i.d., glimepiride 4 mg b.i.d., aspirin 162 mg every day, Plavix 75 mg every day. She was told to hold her metformin for 48 hours after her IV angiogram is done and to have a CT of the chest done without IV contrast in 2 months to follow up with the left upper lobe infiltrate. In addition, she is told to see Dr. Savage in the office in 1 week, Dr. Heath in the office in [address] Matamoros in the office in 3 weeks. She was told to stop smoking and also to avoid marijuana, which was positive on her urine drug screen. JOSELO SAVAGE MD DR: TITO/salma JOB#: [id number] / [id number]
[2018-04-13] MEDS ORDERED: TOUJEO 300 UNIT/ML SQ SCH (21:00)
[2018-04-13] MEDS ORDERED: INSULIN SQ SCH (21:00)
== END 2018-04-13 12:17 | disposition home or self-care (01) | DRG 178 ==
LOC: ER 13:44 → 2 SOUTH 16:49
PROVIDERS: ADMIT Internal Medicine; ATTEND Internal Medicine
DX: J15.6 Pneumonia due to other Gram-negative bacteria (principal); J44.1 Chronic obstructive pulmonary disease with (acute) exacerbation; E44.1 Mild protein-calorie malnutrition; J44.0 Chronic obstructive pulmonary disease with (acute) lower respiratory infection; I10 Essential (primary) hypertension; E78.00 Pure hypercholesterolemia, unspecified; I70.201 Unspecified atherosclerosis of native arteries of extremities, right leg; E10.51 Type 1 diabetes mellitus with diabetic peripheral angiopathy without gangrene; I25.10 Atherosclerotic heart disease of native coronary artery without angina pectoris; E78.5 Hyperlipidemia, unspecified; D63.8 Anemia in other chronic diseases classified elsewhere; F17.210 Nicotine dependence, cigarettes, uncomplicated; T38.0X5A Adverse effect of glucocorticoids and synthetic analogues, initial encounter; Z79.4 Long term (current) use of insulin; Z90.710 Acquired absence of both cervix and uterus; Z79.82 Long term (current) use of aspirin
CPT/HCPCS: 36415; 71045; 71275; 80048; 80053; 80061; 80307; 81001; 82607; 82728; 82962; 83540; 83550; 83735; 83880; 84484; 85007; 85025; 85379; 85610; 87205; 90471; 90756; 93005; 93926; 94640; 94760; 96374; J0696; J1815; J1885; J2270; J2930; J3475; J7620; Q0144; 99285-25; G0479; Q2035

== ENCOUNTER → 2018-05-07 | Outpatient (CLI) | payer BC ==
[2018-04-13 11:00] VITALS: BP 145/86
[~2018-05-07] MED LIST changes: +ACET325T9 PO; +AMLO5TAB7 PO; +ASPI81TA50 PO; +AZIT250T6 PO; +CEFP200T PO; +CLOP75TA PO; +DIPH25CA58 PO; +GLIM4TAB2 PO; +INSU300I SQ; +LOSA1TAB25 PO; +METF10007 PO; +Non Formulary Item SQ; +PRAV40TA2 PO
--- NOTE | 2018-05-07 16:35 | RAD ---
PQRS Compliance statement: One or more of the following individualized dose reduction techniques were utilized for this examination: 1. Automated exposure control. 2. Adjustment of the mA and/or kV according to patient size. 3. Use of iterative reconstruction technique. Indication:LUNG NODULE
NO PRIORS TECHNIQUE: CT chest none IV contrast with multiplanar reformats. COMPARISON: CT angiogram from 04/09/2018 FINDINGS: Heart is normal in size. No pericardial or pleural effusion. Coronary artery calcifications noted. Mild atherosclerotic disease of the aortic arch. Clear neck base. No enlarged axillary, mediastinal adenopathy. Evaluation of hilar lymph nodes limited due to lack of IV contrast. Central airways are patent. Calcified granuloma in the right middle lobe. Interval improvement in the previously seen left medial upper lobe consolidation. Currently on the some scarring or subsegmental atelectasis remaining there. The visualized sections through the liver, spleen, gallbladder, pancreas, adrenals and kidneys within normal limits. No suspicious bony lesion. IMPRESSION: 1. Complete interval resolution of previous is seen left upper lobe consolidation with currently some scarring or 1 small amount of subsegmental atelectasis remaining. Electronically signed by: Leland Little DO (05/07/2018 4:32 PM) [facility]
== END | disposition home or self-care (01) ==
LOC: CT 15:18
PROVIDERS: ATTEND Internal Medicine Pulmonary Disease
DX: J84.10 Pulmonary fibrosis, unspecified (principal); I70.0 Atherosclerosis of aorta; I25.10 Atherosclerotic heart disease of native coronary artery without angina pectoris
CPT/HCPCS: 71250

== ENCOUNTER → 2018-09-27 | Outpatient (CLI) | payer BC ==
[~2018-09-27] MED LIST changes: +AMLO5TAB10 PO; -AMLO5TAB7 PO
--- NOTE | 2018-09-28 13:08 | KCIC ---
Bilateral digital screening mammograms with 3-D tomosynthesis: Reason for examination: Routine screening. Comparison is made to previous study dated 09/27/2014. Bilateral mammograms in CC and oblique projections were obtained with 2-D imaging and 3-D tomosynthesis imaging on a Siemens Inspiration unit and reviewed on the workstation. Interpretation was made with the benefit of CAD. The skin and nipples show no abnormalities. No abnormal axillary lymph nodes are seen. The breast parenchyma shows scattered fatty and fibroglandular density. (Breast density: Category B.) There are no dominant masses, suspicious calcifications or architectural distortion. Benign calcifications are present. Impression: No evidence of malignancy. Recommend routine screening. BI-RAD Category 2: Benign. "Our facility is accredited by the [employer] Mammography Program." This patient's information has been entered into a reminder system for the patient to be notified with the results of her examination and a target date for the next mammogram. Electronically signed by: Kacey Bach MD (09/28/2018 1:06 PM) [id number]
== END | disposition home or self-care (01) ==
LOC: KCIC MAMMO 16:37
PROVIDERS: ATTEND Internal Medicine
DX: Z12.31 Encounter for screening mammogram for malignant neoplasm of breast (principal)
CPT/HCPCS: 77063; 77067

== ENCOUNTER → 2018-12-21 | Outpatient (CLI) | payer BC ==
--- NOTE | 2018-12-21 17:34 | RAD ---
Chest, 2 views, 12/21/2018: HISTORY: Chest pain Comparison is made to a study from 04/12/2018. The heart size and pulmonary vascularity are normal. There is calcific plaquing of the aorta. No pulmonary infiltrate is seen. There is no evidence of pleural fluid. Mild scattered spurs are present in the spine. IMPRESSION: No acute cardiopulmonary abnormality is detected. Electronically signed by: Manpreet Katz MD (12/21/2018 5:31 PM) [facility]
== END | disposition home or self-care (01) ==
LOC: RAD 13:22
PROVIDERS: ATTEND Internal Medicine
DX: R07.81 Pleurodynia (principal)
CPT/HCPCS: 71046

== ENCOUNTER → 2019-05-03 | Outpatient (CLI) | payer BC ==
[~2019-05-03] MED LIST changes: -GLIM4TAB2 PO; +GLIM4TAB4 PO
--- NOTE | 2019-05-03 17:30 | RAD ---
Examination: CT CHEST WO CONTRAST History: Lung mass Comparison/Correlation: 05/07/2018 CT chest without contrast Findings: Axial images of chest were obtained without contrast. Sagittal and coronal reformatted images were provided. Marked coronary arterial calcification is identified involving the right coronary, left anterior descending, and circumflex arteries diffusely. Calcified granuloma involves the right upper lobe. No enlarged thoracic lymph nodes. No pneumothorax. No pleural or pericardial effusion. Bony structures are unremarkable. Fluid distends the stomach. Impression: Marked coronary arterial calcification. Correlate clinically and determine further evaluation for underlying coronary disease. No infiltrate. No mass. PQRS Compliance Statement: One or more of the following individualized dose reduction techniques were utilized for this examination: 1. Automated exposure control 2. Adjustment of the mA and/or kV according to patient size 3. Use of iterative reconstruction technique Electronically signed by: Garfield Piña MD (05/03/2019 5:27 PM) [facility]
== END | disposition home or self-care (01) ==
LOC: CT 14:28
PROVIDERS: ATTEND Internal Medicine Pulmonary Disease
DX: I25.10 Atherosclerotic heart disease of native coronary artery without angina pectoris (principal); J84.10 Pulmonary fibrosis, unspecified
CPT/HCPCS: 71250

== ENCOUNTER → 2019-05-05 | Outpatient (CLI) | payer BC ==
--- NOTE | 2019-05-06 13:56 | RAD ---
EXAM: CT abdomen without contrast. HISTORY: Left upper quadrant pain. TECHNIQUE: CT of the abdomen was performed without intravenous contrast. COMPARISON: None. FINDINGS: There are atherosclerotic calcifications of the coronary arteries. Images of the lung bases reveal mild atelectasis. Bone windows reveal no suspicious lesions. There is severe central canal stenosis from L3 through S1. The liver, gallbladder, pancreas, adrenal glands, spleen and kidneys are unremarkable. There are no pathologically enlarged lymph nodes. The appendix is not inflamed. There is no small bowel obstruction. No inflammatory process is identified. IMPRESSION: 1. No cause for left upper quadrant pain is identified. 2. Severe central canal stenosis throughout the lower lumbar spine. *One or more of the following individualized dose reduction techniques were utilized for this examination: 1. Automated exposure control. 2. Adjustment of the mA and/or kV according to patient size. 3. Use of iterative reconstruction technique. Electronically signed by: Alexandra Marks MD (05/06/2019 1:53 PM) [facility]
== END | disposition home or self-care (01) ==
LOC: CT 15:56
PROVIDERS: ATTEND Internal Medicine
DX: J98.11 Atelectasis (principal); I25.10 Atherosclerotic heart disease of native coronary artery without angina pectoris; M48.07 Spinal stenosis, lumbosacral region
CPT/HCPCS: 74150

== ENCOUNTER → 2019-06-06 | Outpatient (CLI) | payer BC ==
--- NOTE | 2019-06-06 11:12 | CARD ---
MR#: [id number] Date of Study: 06/06/2019 Ordering Physician: BARBRA LAKHANI, Referring Physician: BARBRA LAKHANI, Tech: Cindi Ortiz DERRICK APPROVED REPORT EXAM: Two-dimensional and M-mode echocardiogram with Doppler and color Doppler. Other Information Quality : Good INDICATION Hypertension/HCVD 2D DIMENSIONS RVDd2.8 (2.9-3.5cm)Left Atrium(2D)3.5 (1.6-4.0cm) IVSd1.0 (0.7-1.1cm)Aortic Root(2D)2.1 (2.0-3.7cm) LVDd3.9 (3.9-5.9cm)LVOT Diameter1.9 (1.8-2.4cm) PWd1.0 (0.7-1.1cm)LVDs2.5 (2.5-4.0cm) FS (%) 36.1 %SV44.7 ml LVEF(%)65.0 (>50%) Aortic Valve AoV Peak Magno.123.0cm/sAoV VTI22.7cm AO Peak GR.6.1mmHgLVOT VTI 20.26cm AO Mean GR.3mmHgAVA (VTI)2.40cm2 Mitral Valve MV E Ngrhunxb86.6cm/sMV DECEL QJBP231xe MV A Cweuvqgi615.3cm/sE/A Ratio0.8 TDI Lateral E' P. V6.89cm/sMedial E' P. V4.44cm/s E/Lateral E'12.3E/Medial E'19.1 Tricuspid Valve TR P. Uvcmzyyx175ul/sRAP ZZPPNAEC0dnEk TR Peak Gr.85pmXpQHUN07flXn Pulmonary Vein S1 Ctzpezfv97.3cm/sS2 Pdnmexmb23.81cm/s D2 Usnszqut96.8cm/s LEFT VENTRICLE The left ventricle is normal size. There is mild concentric left ventricular hypertrophy. The left ve ntricular systolic function is normal. The Ejection Fraction is 60-65%. There is normal LV segmental wall motion. Transmitral Doppler flow pattern is Grade I-abnormal relaxation pattern. RIGHT VENTRICLE The right ventricle is normal size. The right ventricular systolic function is normal. ATRIA The left atrium size is normal. The right atrium size is normal. The interatrial septum is intact wit h no evidence for an atrial septal defect or patent foramen ovale as noted on 2-D or Doppler imaging. AORTIC VALVE The aortic valve is calcified but opens well. Doppler and Color Flow revealed no significant aortic r egurgitation. There is no significant aortic valvular stenosis. MITRAL VALVE The mitral valve is calcified but opens well. Mitral annular calcification is mild. There is no evide nce of mitral valve prolapse. There is no mitral valve stenosis. Doppler and Color-flow revealed trac e mitral regurgitation. TRICUSPID VALVE The tricuspid valve is normal in structure and function. Doppler and Color Flow revealed trace tricus pid regurgitation. The PA pressure was estimated at 26 mmHg. There is no tricuspid valve stenosis. PULMONIC VALVE The pulmonary valve is normal in structure and function. Doppler and Color Flow revealed trace pulmon ic valvular regurgitation. There is no pulmonic valvular stenosis. GREAT VESSELS The aortic root is normal in size. The ascending aorta is normal in size. The IVC is normal in size a nd collapses >50% with inspiration. PERICARDIAL EFFUSION There is no evidence of significant pericardial effusion. Critical Notification Critical Value: No <Conclusion> The left ventricular systolic function is normal. The Ejection Fraction is 60-65%. There is normal LV segmental wall motion. Transmitral Doppler flow pattern is Grade I-abnormal relaxation pattern. Trace mitral regurgitation. Trace tricuspid regurgitation. The PA pressure was estimated at 26 mmHg. There is no evidence of significant pericardial effusion. Signed by : Blake Shea, Electronically Approved : 06/06/2019 11:12:24
--- NOTE | 2019-06-06 16:47 | RAD ---
MR#: [id number] Date of Study: 06/06/2019 Ordering Physician: BARBRA LAKHANI, Referring Physician: BARBRA LAKHANI, Tech: Pamela Simmons RDMS, MICHELLE APPROVED REPORT Patient Location: OUT-PATIENT Laterality:Bilateral Indications PAD Doppler Spectral Velocity Analysis Right Left pCCA 106/17 cm/spCCA 104/19 cm/s mCCA 75/23 cm/smCCA 88/19 cm/s dCCA 69/23 cm/sdCCA 104/24 cm/s ECA 193/44 cm/sECA 251/24 cm/s pICA 45/15 cm/spICA 76/16 cm/s Rina 54/17 cm/smICA 69/16 cm/s dICA 58/17 cm/sdICA 66/20 cm/s Vert. 38/10 cm/sVert. 72/49 cm/s ICA/CCA 0.55ICA/CCA 0.73 Findings Grayscale images of the bilateral common carotid, internal and external carotid vessels reveals moder ate diffuse plaque. Based on spectral waveforms and color Doppler there is overall 0 to less than 50% stenosis involving the internal carotid artery. Likely greater than 50% stenosis involving the external carotid artery. The bilateral vertebral arteries are antegrade with normal velocities. Bilateral ICA to CCA ratios ar e less than 1. Critical Notification Critical Value: No <Conclusion> 1. No significant bilateral internal carotid disease. Signed by : Barbra Lakhani, Electronically Approved : 06/06/2019 16:47:00
--- NOTE | 2019-06-06 16:52 | RAD ---
MR#: [id number] Date of Study: 06/06/2019 Ordering Physician: BARBRA LAKHANI, Referring Physician: BARBRA LAKHANI, Tech: Pamela Simmons RDMS, RVT APPROVED REPORT Patient Location: OUT-PATIENT Indications Claudication: Risk Factors History of Lower Extremity PAD: Surgery/Intervention Bypass Graft 1 : VELOCITY AND DOPPLER WAVEFORM ANALYSIS RIGHT cm/secWaveformSeverity LEFT cm/secWaveform Severity pCFA 104.0BiphasicpCFA 103.0Biphasic dCFA 135.0BiphasicdCFA Prof Fem Art. 127.0BiphasicProf Fem Art. 123.0Monophasic Fem Art Prox. 435.0MonophasicFem Art Prox. Occluded Fem Art Mid. 84.0MonophasicFem Art Mid. Occluded Fem Art Dist. 99.0MonophasicFem Art Dist. Occluded Pop Art(Fossa) 56.0MonophasicPop Art(AK) 111.0Biphasic POLE CLASSIFIER Mid.44.0MonophasicPTA Mid.68.0Biphasic POLE CLASSIFIER Dist. 48.0MonophasicPTA Dist. 63.0Biphasic Per Art Mid. 35.0MonophasicPer Art Mid. 73.0Biphasic JADEN Prox. 119.0MonophasicATA Prox. 41.0Biphasic DPA 22MonophasicDPA 42Biphasic BYPASS GRAFT ANALYSIS RIGHT cm/secWaveform SeverityLEFT cm/secWaveformSeverity Prox. Anastomosis Prox. Anastomosis 85.0Biphasic Mid Mid 85.0Biphasic Dist. Anastomosis Dist. Anastomosis 104.0Biphasic Findings Grayscale images of the bilateral lower extremity arterial vessels demonstrates mild to moderate diff use atherosclerosis. On the right side there is a critical greater than 75% stenosis involving the proximal SFA with monop hasic waveforms below the lesion. There is three-vessel runoff below the knee with likely greater mariann n 50% stenosis involving the anterior tibial artery. On the left there is a occlusion at the level of the proximal SFA. There is a patent bypass graft wit h normal velocities noted. The below-knee vessels have mostly biphasic waveforms and are patent with normal velocities. Critical Notification Critical Value: No <Conclusion> 1. Critical high-grade stenosis involving the right SFA 2. Patent left femoropopliteal bypass graft. Signed by : Barbra Lakhani, Electronically Approved : 06/06/2019 16:51:31
== END | disposition home or self-care (01) ==
LOC: US 07:53
PROVIDERS: ATTEND Internal Medicine Cardiovascular Disease
DX: I08.0 Rheumatic disorders of both mitral and aortic valves (principal); I65.23 Occlusion and stenosis of bilateral carotid arteries; I70.293 Other atherosclerosis of native arteries of extremities, bilateral legs; I11.9 Hypertensive heart disease without heart failure
CPT/HCPCS: 93306; 93880; 93925

== ENCOUNTER 2019-06-14 11:05 | Observation (INO) | payer BC ==
[~2019-06-14] VITALS: Ht 170.2 cm; Wt 85.0 kg
[2019-06-14] VITALS (19 sets, daily range): BP systolic 77–163; BP diastolic 46–89
[2019-06-14 11:39] LABS: HEMATOCRIT 33.8 % (36.0-47.0); HEMOGLOBIN 11.3 g/dL (12.0-15.5); RED BLOOD COUNT 4.11 x10^6/uL (3.50-5.40); RED CELL DISTRIBUTION WIDTH 14.8 % (11.5-14.5); WHITE BLOOD COUNT 12.2 x10^3/uL (4.0-11.0)
[2019-06-14 11:44] LABS: CALCIUM 9.3 mg/dL (8.5-10.1); GFR 67.8
[2019-06-14] MEDS ORDERED: IODIXANOL 320 MG/ML 100 ML VIAL. ONE (12:25)
[2019-06-14] MEDS ORDERED: LIDOCAINE 1% Multi-Dose 20 ML VIAL. ONE (12:57)
[2019-06-14] MEDS ORDERED: MIDAZOLAM HCL/PF 5 MG/5 ML VIAL. ONE (13:15)
[2019-06-14] MEDS ORDERED: fentaNYL PF VIAL 250 MCG/5 ML VIAL ONE (13:15)
[2019-06-14] MEDS ORDERED: HEPARIN for IV BOLUS 10,000 UNIT/10 ML VIAL. ONE ×2 (13:15→14:10)
--- NOTE | 2019-06-14 13:24 | PDOC ---
MODERATE SEDATION ASSESSMENT RISKS/ALTERNATIVES Risks/Alternatives Risks and alternatives of this type of sedation and procedure discussed with: RISK/ALTERNATIVES: Patient H & P ON CHART H & P H & P on chart and reviewed for co-morbid conditions and appropriate labs. H&P ON CHART: Yes STATUS PREG STATUS ASSESSED: N/A MEDS/ALLERGIES REVIEWED Meds/Allergies Reviewed Medications and Allergies including time and route of recently administered narcotics and sedatives. MEDS/ALLERGIES REVIEWED: Yes ASA RATING ASA RATING: II AIRWAY ASSESSMENT Airway Assessment Airway patency, oral function limitations, presence of caps, crowns, dentures, partials, and ability to extend neck assessed. AIRWAY ASSESSMENT: Yes MALLAMPATI SCORE MALLAMPATI SCORE: II PRE-SEDATION ASSESSMENT PRE-SEDATION ASSESSMENT: Yes BARBRA LAKHANI MD Jun 14, 2019 13:24
[2019-06-14] MEDS ORDERED: LIDOCAINE 1% Multi-Dose 20 ML VIAL. INJ ONE (13:45)
[2019-06-14] MEDS ORDERED: IODIXANOL 320 MG/ML 100 ML VIAL. IART ONE (13:45)
[2019-06-14] MEDS ORDERED: MIDAZOLAM HCL/PF 5 MG/5 ML VIAL. IV ONE (13:45)
[2019-06-14] MEDS ORDERED: fentaNYL PF VIAL 250 MCG/5 ML VIAL IV ONE (13:45)
[2019-06-14] MEDS ORDERED: CONTRAST GIVEN. MC PRN (13:45)
[2019-06-14] MEDS ORDERED: NITROGLYCERIN 200 MCG/2 ML SYRINGE FOR CATH/VASC LAB. ONE (14:35)
[2019-06-14] MEDS ORDERED: NITROGLYCERIN 200 MCG/2 ML SYRINGE FOR CATH/VASC LAB. IART ONE (14:45)
[2019-06-14] MEDS ORDERED: hydrALAZINE 20 MG/ML VIAL. ONE (16:05)
[2019-06-14] MEDS ORDERED: LIDOCAINE 2%/EPI 1:100,000 20 ML VIAL. ONE (16:06)
[2019-06-14] MEDS ORDERED: MIDAZOLAM HCL/PF 2 MG/2 ML VIAL. ONE (16:08)
[2019-06-14] MEDS ORDERED: hydrALAZINE 20 MG/ML VIAL. IVP ONE ×2 (16:15→17:30)
[2019-06-14] MEDS ORDERED: MIDAZOLAM HCL/PF 2 MG/2 ML VIAL. IV ONE (16:15)
[2019-06-14] MEDS ORDERED: LIDOCAINE 2%/EPI 1:100,000 20 ML VIAL. IJ ONE (16:15)
--- NOTE | 2019-06-14 16:47 | CARD ---
MR#: [id number] Date of Study: 06/14/2019 Ordering Physician: BARBRA LAKHANI, Referring Physician: BARBRA LAKHANI, Tech: Jose Raul Mathews RT (R) APPROVED REPORT Patient StatusIN Wooden Frame Builder: Jose Raul Mathews RT (R) Procedure(s) performed: Moderate Sedation: 175 Minutes Dose: 95.50 Gycm2 Fluoro Time: 33.1 Minutes Contrast: 136mL Visipaque Abdominal aortogram with bilateral femoral run-off RSFA atherectomy and balloon angioplasty RPOP atherectomy and balloon angioplasty RAT atherectomy and balloon angioplasty HISTORY The patient is a 63 year-old female with a history of : tobacco history() , hypertension, dyslipidemi a. INDICATION FOR PROCEDURE The indication(s) include : Unilateral claudication: Right, Rest pain: Right lower extremity, with cr itical SFA stenosis on u/s imaging. . CASE TECHNIQUE After explaining the risks, benefits, and alternative options, informed consent was obtained from the patient. During this case, Fluoroscopy and low osmolar contrast were used for imaging. PROCEDURE NARRATIVE After appropriate informed consent, the patient was brought to the cathode builder and placed in the supine position. Preprocedural timeout was completed and confirmed the right patient and procedure. The bila teral groins were prepped and draped in usual sterile fashion. Moderate sedation acheived with Fentan yl and Versed. Access: Under lidocaine local anesthesia, a 5Fr introducer sheath was placed in the LCFA via the eusebio fied seldinger technique with a J-tipped guidewire and an 18g needle. The groin access was complex du e to severe scar tissue from prior fem/pop bypass. Diagnostic angiography was then performed using a 5Fr Omniflush catheter with digital subtraction angiography. Next, the contralateral (RCFA) was acce ssed with the aid of the Omniflush catheter and a J-tipped guidewire. The omniflush was then exchange d for a long angled glide catheter which was then placed in the RCFA. Repeat right lower extremity wi th DSA was performed. Prior to case completion the left lower ext runoff was also performed under dig ital subtraction angiography. FINDINGS: AO: 154/86 AORTA: Mild diffuse irregularities. RENAL arteries: Single right and left renal arteries. No significant right renal artery stenosis. Pro bable moderate proximal left renal artery stenosis of 50% RCIA: Mild diffuse irregularities of upto 30%. REIA: No significant disease. RIIA: Severe diffuse proximal disease of up to 90%. RCFA: No significant disease. RSFA: Focal 90% proximal stenosis, followed by mid diffuse disease of up to 30% and a distal 70% sten osis involving the SFA/POP junction. RPOP: 70% stenosis of the proximal segment. RAT: Severe diffuse disease of up to 99% RTP trunk: No significant disease. RPT: No significant disease. RPER: No significant disease. LCIA: Mild diffuse irregularities of upto 20%. SHADY: No significant disease. LIIA: No significant disease. LCFA: No significant disease. LSFA: Occluded proximally. There is a patent fem-pop bypass graft w/o significant disease. LPOP: No significant disease. LAT: No significant disease. LTP trunk: No significant disease. INTERVENTIONAL TECHNIQUE: Based on the patient's present symptoms of severe lifestyle limiting claudication where she was using the wheelchair/motorized scooter a intervention was performed. Heparin was used for an to regulation for an ACT above 250. The left 5 Mozambican sheath was exchanged for a 6 [place] Terumo sheath which was placed in the distal external iliac artery. Next, a command wire was used to navigate to the distal a nterior tibial artery with the aid of a Navicross catheter. Next, the command wire was exchanged for a Viper wire. Atherectomy and angioplasty of the anterior tibial artery: Next, a 1.25 mm micro-atherectomy jessica was used to perform an orbital atherectomy of the anterior tib ial artery and subsequent balloon angioplasty was performed with a Mobile 2.0 x 120 mm and 2.5 x 200 mm balloons at nominal pressures. Post-PCI angiography demonstrated excellent vessel expansion with 0 % residual stenosis and excellent antegrade flow. Attention was then turned to the popliteal and SFA segments. Atherectomy and angioplasty of the popliteal artery: Next, a 2.0 mm atherectomy bur was used to perform orbital atherectomy of the popliteal and proximal SFA. The popliteal artery was then balloon angioplastied with a 5 x 80 mm Mobile balloon. Atherectomy and angioplasty of the SFA: Next, the 2 mm jessica was used to atherectomize the ostial/proximal SFA lesion. Next, the SFA lesion wa s an to plastied with a 5 x 20 mm Mobile balloon at nominal pressures. Final angiography revealed exc ellent balloon expansion and less than 20% residual stenosis at the level of the SFA, 0% residual john nosis at the level of the popliteal artery. Given excellent antegrade flow and no evidence of dissect ion further intervention was deferred in favor of medical therapy to avoid stenting the area of the o stial SFA due to risk of stent fracture/compression At case completion the Terumo destination sheath was removed and a 7 Mozambican sheath was inserted in th e left common femoral artery. The left-sided sheath was sutured to the skin and hemostasis was achiev ed via manual compression. The patient tolerated the procedure well without any acute complications. This was a very complex case due to multilevel stenoses requiring atherectomy with difficult access d ue to prior surgery and scar tissue. Conclusion 1. Successful trilevel atherectomy at the SFA, popliteal and anterior tibial levels. 2. Successful balloon angioplasty of the SFA with a 5.0 x 20 mm, the popliteal with a 5.0 x 80 mm and the anterior tibial with a 2.5 x 200 mm balloons with robust three-vessel runoff to the right leg. Recommendations ASA 81mg daily, Plavix 75mg daily Smoking cessation and risk factor modification. Signed by : Barbra Lakhani, Electronically Approved : 06/14/2019 16:47:22
[2019-06-14] MEDS ORDERED: ACETAMINOPHEN 325 MG TABLET. PO PRN (19:00)
[2019-06-14] MEDS ORDERED: PRAV80TA2 PO (19:34)
[2019-06-14] MEDS ORDERED: NAPR-514 PO (19:40)
[2019-06-14] MEDS ORDERED: PANT40TA77 PO (19:40)
[2019-06-14] MEDS ORDERED: SERT50TA PO (19:40)
[2019-06-15 03:30] VITALS: BP 117/65
[2019-06-15 07:04] VITALS: BP 150/83
[2019-06-15] MEDS ORDERED: NAPROXEN 500 MG TABLET PO PRN (10:15)
[2019-06-15] MEDS ORDERED: ACETAMINOPHEN 325 MG TABLET. PO PRN (10:15)
--- NOTE | 2019-06-15 10:22 | NUR ---
SS following for discharge planning. SS reviewed pt chart. Pt is from home with spouse and is currently on room air. SS will continue to follow for discharge planning.
--- NOTE | 2019-06-15 10:23 | PDOC3 ---
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 Brief Hospital Course Allergies Allergies Coded Allergies Type Severity Reaction Last Updated Verified chocolate flavor Allergy Intermediate 04/12/18 Yes Estrogens Adverse Reaction Severe Nausea and Vomiting 04/10/18 Yes Vital Signs Vital Signs Date Time Temp Pulse Resp B/P (MAP) Pulse Ox O2 Delivery O2 Flow Rate FiO2 06/15/19 08:00 Room Air 06/15/19 07:04 98.0 77 18 150/83 (105) 98 98.0 Lab Results Laboratory Tests Test 06/14/19 11:30 06/14/19 14:02 06/14/19 14:52 06/14/19 15:36 White Blood Count 12.2 x10^3/uL (4.0-11.0) Red Blood Count 4.11 x10^6/uL (3.50-5.40) Hemoglobin 11.3 g/dL (12.0-15.5) Hematocrit 33.8 % (36.0-47.0) Mean Corpuscular Volume 82 fL (79-100) Mean Corpuscular Hemoglobin 28 pg (25-35) Mean Corpuscular Hemoglobin Concent 34 g/dL (31-37) Red Cell Distribution Width 14.8 % (11.5-14.5) Platelet Count 377 x10^3/uL (140-400) Prothrombin Time 12.0 SEC (11.7-14.0) Prothromb Time International Ratio 0.9 (0.8-1.1) Sodium Level 142 mmol/L (136-145) Potassium Level 4.0 mmol/L (3.5-5.1) Chloride Level 105 mmol/L (98-107) Carbon Dioxide Level 28 mmol/L (21-32) Anion Gap 9 (6-14) Blood Urea Nitrogen 20 mg/dL (7-20) Creatinine 1.0 mg/dL (0.6-1.0) Estimated GFR (Cockcroft-Gault) 67.8 Glucose Level 196 mg/dL (70-99) Calcium Level 9.3 mg/dL (8.5-10.1) Activated Clotting Time 243 sec (92-181) 243 sec (92-181) 263 sec (92-181) Test 06/14/19 20:49 06/15/19 07:08 Glucose (Fingerstick) 267 mg/dL (70-99) 212 mg/dL (70-99) Laboratory Tests Test 06/14/19 11:30 06/14/19 14:02 06/14/19 14:52 06/14/19 15:36 White Blood Count 12.2 x10^3/uL (4.0-11.0) Red Blood Count 4.11 x10^6/uL (3.50-5.40) Hemoglobin 11.3 g/dL (12.0-15.5) Hematocrit 33.8 % (36.0-47.0) Mean Corpuscular Volume 82 fL (79-100) Mean Corpuscular Hemoglobin 28 pg (25-35) Mean Corpuscular Hemoglobin Concent 34 g/dL (31-37) Red Cell Distribution Width 14.8 % (11.5-14.5) Platelet Count 377 x10^3/uL (140-400) Prothrombin Time 12.0 SEC (11.7-14.0) Prothromb Time International Ratio 0.9 (0.8-1.1) Sodium Level 142 mmol/L (136-145) Potassium Level 4.0 mmol/L (3.5-5.1) Chloride Level 105 mmol/L (98-107) Carbon Dioxide Level 28 mmol/L (21-32) Anion Gap 9 (6-14) Blood Urea Nitrogen 20 mg/dL (7-20) Creatinine 1.0 mg/dL (0.6-1.0) Estimated GFR (Cockcroft-Gault) 67.8 Glucose Level 196 mg/dL (70-99) Calcium Level 9.3 mg/dL (8.5-10.1) Activated Clotting Time 243 sec (92-181) 243 sec (92-181) 263 sec (92-181) Test 06/14/19 20:49 06/15/19 07:08 Glucose (Fingerstick) 267 mg/dL (70-99) 212 mg/dL (70-99) Brief Hospital Course Ms. Brooks is a 63 old AA female admitted for planned femoral runoff due to symptoms of LE claudications. She is known for PAD with past left fem-pop bypass. She has been having symptoms to her RLE and after arterial duplex she was noted with critical stenosis to RSFA. With then had a femoral runoff and had a successful trilevel atherectomy at the SFA, popliteal and anterior tibial levels and successful balloon angioplasty of the SFA with a 5.0 x 20 mm, the popliteal with a 5.0 x 80 mm and the anterior tibial with a 2.5 x 200 mm balloons with robust three-vessel runoff to the right leg. She tolerated the procedure well without immediate complications. Left groin arteriotomy site is intact without swelling and soft with slight tenderness. Neurovascular status to bilateral LE intact. No CP, ambulatory without difficulty, no SOA and VSS. Post op instruction provided including to hold metformin till tomorrow and to restart home meds but consider PRN aleve dosing given her use of ASA and plavix. Start exercise regimen, smoking cessation and follow up in 1-2 months Assessment Assessment AORTA: Mild diffuse irregularities. RENAL arteries: Single right and left renal arteries. No significant right renal artery stenosis. Probable moderate proximal left renal artery stenosis of 50% RCIA: Mild diffuse irregularities of upto 30%. REIA: No significant disease. RIIA: Severe diffuse proximal disease of up to 90%. RCFA: No significant disease. RSFA: Focal 90% proximal stenosis, followed by mid diffuse disease of up to 30% and a distal 70% stenosis involving the SFA/POP junction. RPOP: 70% stenosis of the proximal segment. RAT: Severe diffuse disease of up to 99% RTP trunk: No significant disease. RPT: No significant disease. RPER: No significant disease. LCIA: Mild diffuse irregularities of upto 20%. SHADY: No significant disease. LIIA: No significant disease. LCFA: No significant disease. LSFA: Occluded proximally. There is a patent fem-pop bypass graft w/o significant disease. LPOP: No significant disease. LAT: No significant disease. LTP trunk: No significant disease. INTERVENTIONAL TECHNIQUE: Based on the patient's present symptoms of severe lifestyle limiting claudication where she was using the wheelchair/motorized scooter a intervention was performed. Heparin was used for an to regulation for an ACT above 250. The left 5 Liberian sheath was exchanged for a 6 Liberian Terumo sheath which was placed in the distal external iliac artery. Next, a command wire was used to navigate to the distal anterior tibial artery with the aid of a Navicross catheter. Next, the command wire was exchanged for a Viper wire. Atherectomy and angioplasty of the anterior tibial artery: Next, a 1.25 mm micro-atherectomy jessica was used to perform an orbital atherectomy of the anterior tibial artery and subsequent balloon angioplasty was performed with a Gulston 2.0 x 120 mm and 2.5 x 200 mm balloons at nominal pressures. Post-PCI angiography demonstrated excellent vessel expansion with 0% residual stenosis and excellent antegrade flow. Attention was then turned to the popliteal and SFA segments. Atherectomy and angioplasty of the popliteal artery: Next, a 2.0 mm atherectomy bur was used to perform orbital atherectomy of the popliteal and proximal SFA. The popliteal artery was then balloon angioplastied with a 5 x 80 mm Gulston balloon. Atherectomy and angioplasty of the SFA: Next, the 2 mm jessica was used to atherectomize the ostial/proximal SFA lesion. Next, the SFA lesion was an to plastied with a 5 x 20 mm Gulston balloon at nominal pressures. Final angiography revealed excellent balloon expansion and less than 20% residual stenosis at the level of the SFA, 0% residual stenosis at the level of the popliteal artery. Given excellent antegrade flow and no evidence of dissection further intervention was deferred in favor of medical therapy to avoid stenting the area of the ostial SFA due to risk of stent fracture/compression At case completion the Terumo destination sheath was removed and a 7 Liberian sheath was inserted in the left common femoral artery. The left-sided sheath was sutured to the skin and hemostasis was achieved via manual compression. The patient tolerated the procedure well without any acute complications. This was a very complex case due to multilevel stenoses requiring atherectomy with difficult access due to prior surgery and scar tissue. Conclusion Recommendations ASA 81mg daily, Plavix 75mg daily Smoking cessation and risk factor modification. DATE: 06/14/19 162 Discharge Information Condition at Discharge: Stable Follow Up: Weeks (4) Disposition/Orders: D/C to Home Scheduled Acetaminophen (Tylenol) 325 Mg Tablet, 2 TAB PO PRN Q4HRS, #30 (Reported) Entered as Reported by: SWAPNIL RODRIGUEZ RN on 04/09/18 9847 Last Taken: Unknown Dose on 06/13/19 Last Action: Continued on 06/15/19 1020 by KELLY MORGAN Amlodipine Besylate (Amlodipine Besylate) 5 Mg Tablet, 5 MG PO DAILY for 30 Days, #30 Prescribed by: JOSELO MAHMOOD on 04/13/18 1021 Last Taken: Unknown Dose on 06/14/19 Last Action: Continued on 06/15/19 1020 by KELLY MORGAN Aspirin (Aspir-Low) 81 Mg Tablet.dr, 1 TAB PO DAILY, #30 Ref 3 (Reported) Entered as Reported by: SWAPNIL RODRIGUEZ RN on 04/09/182145 Last Taken: Unknown Dose on 06/13/19 Last Action: Continued on 06/15/19 1020 by KELLY MORGAN Clopidogrel Bisulfate (Clopidogrel) 75 Mg Tablet, 75 MG PO DAILY, (Reported) Entered as Reported by: SWAPNIL RODRIGUEZ RN on 04/09/182145 Last Taken: Unknown Dose on 06/13/19 Last Action: Continued on 06/15/19 1020 by KELLY MORGAN Glimepiride (Glimepiride) 4 Mg Tablet, 4 MG PO BID, (Reported) Entered as Reported by: SWAPNIL RODRIGUEZ RN on 04/09/182145 Last Taken: Unknown Dose on 06/13/19 Last Action: Converted on 06/15/190 by KELLY MORGAN Insulin Glargine,Hum.rec.anlog (Touralph Solostar) 300 Unit/1 Ml Insuln.pen, 30 UNIT SQ HS, (Reported) Entered as Reported by: SWAPNIL RODRIGUEZ RN on 04/09/182145 Last Taken: 40 units on 06/13/19 Last Action: Converted on 06/15/19 1020 by KELLY MORGAN Losartan/Hydrochlorothiazide (Losartan-Hctz 100-12.5 Mg Tab) 1 Each Tablet, 1 TAB PO DAILY, (Reported) Entered as Reported by: SWAPNIL RODRIGUEZ RN on 04/09/182145 Last Taken: Unknown Dose on 06/14/19 Last Action: Converted on 06/15/19 1020 by KELLY MORGAN Metformin Hcl (Metformin Hcl) 1,000 Mg Tablet, 1,000 MG PO BID, (Reported) Entered as Reported by: SWAPNIL RODRIGUEZ RN on 04/09/182145 Last Taken: Unknown Dose on 06/13/19 Last Action: Converted on 06/15/191019 by KELLY MORGAN Naproxen (Naproxen) 500 Mg Tablet, 1 TAB PO BID for pain for 30 Days, #60 Ref 0 (Reported) Entered as Reported by: AMANDEEP POWER RN on 06/14/191939 Last Action: Continued on 06/15/191019 by KELLY MORGAN Pantoprazole Sodium (Pantoprazole Sodium ) 40 Mg Tablet.dr, 40 MG PO DAILYAC for GERD, (Reported) Entered as Reported by: AMANDEEP POWER RN on 06/14/191939 Last Action: Continued on 06/15/191019 by KELLY MORGAN Pravastatin Sodium (Pravastatin Sodium) 80 Mg Tablet, 1 TAB PO DAILY for cholesterol, #30 Ref 5 (Reported) Entered as Reported by: AMANDEEP POWER RN on 06/14/191933 Last Action: Converted on 06/15/191019 by KELLY MORGAN Sertraline Hcl (Zoloft) 50 Mg Tablet, 50 MG PO DAILY for ANTI-DEPRESSANT, Ref 0 (Reported) Entered as Reported by: AMANDEEP POWER RN on 06/14/191939 Last Action: Continued on 06/15/191019 by KELLY MORGAN [Non Formulary Item] 1 EA EACH, 30 EA SQ QHS for 30 Days, #1 Prescribed by: JOSELO MAHMOOD on 04/13/18 1021 Last Action: Converted on 06/15/191019 by KELLY MORGAN Discontinued Medications Pravastatin Sodium (Pravastatin Sodium) 40 Mg Tablet, 40 MG PO DAILY, (Reported) Discontinued Reason: Prescription changed Entered as Reported by: SWAPNIL RODRIGUEZ RN on 04/09/182145 Last Taken: Unknown Dose on 06/13/19 Last Action: Last Taken Edited on 06/14/19 1158 by DELBERT GRIJALVA Patient Instructions Patient Instructions GENERAL INSTRUCTIONS: 1. Your dressing should be removed prior to leaving the hospital. 2. It is OK to shower the day after your procedure. 3. If you received stents, be sure to carry your stent information card with you in your wallet/purse at all times. 4. Call the office immediately at [phone] if you notice any fever or if there is redness, worsening tenderness/pain, increased bruising, or drainage from the puncture site. 5. Should you have bleeding from the site, lie down immediately & put pressure on the site. The pressure should be hard enough to stop the bleeding. Have the nearest person call 911. DO NOT try to drive to the ER with active bleeding. 6. If you notice a change in color, coolness to touch, or loss of feeling in the affected extremity, come to the emergency room. Please have someone drive you or call 911 if no one is available. DO NOT drive yourself. 7. If you normally take glucophage (metformin), please do not take this medicine for 48 hours following your procedure. 8. DO NOT STOP TAKING YOUR PLAVIX OR ASPIRIN UNLESS IT IS CLEARED BY A RAILROAD TRACK REPAIR SUPERVISOR OF YOUR UNIVERSITY MANAGER AT OUR OFFICE. 9. QUIT SMOKING: the [place] [employer], [employer], & [employer] have cessation resources available on their websites 10. Please have someone available to drive you home from the hospital as you may be limited by sedation medications given during the procedure. Femoral (Groin) access: 1. Do no lifting, pushing, pulling, bending, stooping, or recurrent stair climbing for 3 days following your procedure. 2. Once past the first 3 days, do not do any HEAVY exertion or lifting for one week following the procedure. No gym workouts, running, lifting greater than a gallon of milk, etc 3. Do not submerge in bath or pool for one week. OK to drive 3 days following your procedure, but if going long distance, do not go alone & take hourly breaks to get out of car and walk around. Call the office at [phone] for any questions or concerns. BARBRA LAKHANI MD 06/15/191816: Discharge Summary Brief Hospital Course Brief Hospital Course Pt. seen and examined. 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 No acute events overnight. Did well post PVI. Left groin site is c/d/i. R leg is warm with good femoral/pedal pulses. Will f/u in the office in 2 months. Discharge Information Scheduled Acetaminophen (Tylenol) 325 Mg Tablet, 2 TAB PO PRN Q4HRS, #30 (Reported) Entered as Reported by: SWAPNIL RODRIGUEZ RN on 04/09/182145 Last Taken: Unknown Dose on 06/13/19 Last Action: Continued on 06/15/19 1020 by KELLY MORGAN Amlodipine Besylate (Amlodipine Besylate) 5 Mg Tablet, 5 MG PO DAILY for 30 Days, #30 Prescribed by: JOSELO MAHMOOD on 04/13/18 1021 Last Taken: Unknown Dose on 06/14/19 Last Action: Continued on 06/15/19 1020 by KELLY MORGAN Aspirin (Aspir-Low) 81 Mg Tablet.dr, 1 TAB PO DAILY, #30 Ref 3 (Reported) Entered as Reported by: SWAPNIL RODRIGUEZ RN on 04/09/182145 Last Taken: Unknown Dose on 06/13/19 Last Action: Continued on 06/15/19 1020 by KELLY MORGAN Clopidogrel Bisulfate (Clopidogrel) 75 Mg Tablet, 75 MG PO DAILY, (Reported) Entered as Reported by: SWAPNIL RODRIGUEZ RN on 04/09/182145 Last Taken: Unknown Dose on 06/13/19 Last Action: Continued on 06/15/19 1020 by KELLY MORGAN Glimepiride (Glimepiride) 4 Mg Tablet, 4 MG PO BID, (Reported) Entered as Reported by: SWAPNIL RODRIGUEZ RN on 04/09/182145 Last Taken: Unknown Dose on 06/13/19 Last Action: Converted on 06/15/191019 by KELLY MORGAN Insulin Glargine,Hum.rec.anlog (Toujeo Solostar) 300 Unit/1 Ml Insuln.pen, 30 UNIT SQ HS, (Reported) Entered as Reported by: SWAPNIL RODRIGUEZ RN on 04/09/182145 Last Taken: 40 units on 06/13/19 Last Action: Converted on 06/15/191019 by KELLY MORGAN Losartan/Hydrochlorothiazide (Losartan-Hctz 100-12.5 Mg Tab) 1 Each Tablet, 1 TAB PO DAILY, (Reported) Entered as Reported by: SWAPNIL RODRIGUEZ RN on 04/09/182145 Last Taken: Unknown Dose on 06/14/19 Last Action: Converted on 06/15/19 1020 by KELLY MORGAN Metformin Hcl (Metformin Hcl) 1,000 Mg Tablet, 1,000 MG PO BID, (Reported) Entered as Reported by: SWAPNIL RODRIGUEZ RN on 04/09/182145 Last Taken: Unknown Dose on 06/13/19 Last Action: Converted on 06/15/191019 by KELLY MORGAN Naproxen (Naproxen) 500 Mg Tablet, 1 TAB PO BID for pain for 30 Days, #60 Ref 0 (Reported) Entered as Reported by: AMANDEEP POWER RN on 06/14/191939 Last Action: Continued on 06/15/191019 by KELLY MORGAN Pantoprazole Sodium (Pantoprazole Sodium ) 40 Mg Tablet.dr, 40 MG PO DAILYAC for GERD, (Reported) Entered as Reported by: AMANDEEP POWER RN on 06/14/191939 Last Action: Continued on 06/15/191019 by KELLY MORGAN Pravastatin Sodium (Pravastatin Sodium) 80 Mg Tablet, 1 TAB PO DAILY for cholesterol, #30 Ref 5 (Reported) Entered as Reported by: AMANDEEP POWER RN on 06/14/191933 Last Action: Converted on 06/15/191019 by KELLY MORGAN Sertraline Hcl (Zoloft) 50 Mg Tablet, 50 MG PO DAILY for ANTI-DEPRESSANT, Ref 0 (Reported) Entered as Reported by: AMANDEEP POWER RN on 06/14/191939 Last Action: Continued on 06/15/191019 by KELLY MORGAN [Non Formulary Item] 1 EA EACH, 30 EA SQ QHS for 30 Days, #1 Prescribed by: JOSELO MAHMOOD on 04/13/18 1021 Last Action: Converted on 06/15/191019 by KELLY MORGAN Discontinued Medications Pravastatin Sodium (Pravastatin Sodium) 40 Mg Tablet, 40 MG PO DAILY, (Reported) Discontinued Reason: Prescription changed Entered as Reported by: SWAPNIL RODRIGUEZ RN on 04/09/182145 Last Taken: Unknown Dose on 06/13/19 Last Action: Last Taken Edited on 06/14/19 1158 by KELLY VALERO APRN Jun 15, 2019 10:23 BARBRA LAKHANI MD Jun 15, 2019 18:17
[2019-06-15 10:24] VITALS: BP 173/74
[2019-06-15] MEDS ORDERED: CLOPIDOGREL BISULFATE 75 MG TABLET PO SCH (11:00)
[2019-06-15] MEDS ORDERED: LOSARTAN POTASSIUM 50 MG TABLET. PO SCH (11:00)
[2019-06-15] MEDS ORDERED: GLIMEPIRIDE 2 MG TABLET. PO SCH (11:00)
[2019-06-15] MEDS ORDERED: hydroCHLOROthiazide 12.5 MG CAPSULE PO SCH (11:00)
[2019-06-15] MEDS ORDERED: SERTRALINE 50 MG TABLET. PO SCH (11:00)
[2019-06-15] MEDS ORDERED: amLODIPine BESYLATE 5 MG TABLET PO SCH (11:00)
[2019-06-15] MEDS ORDERED: PANTOPRAZOLE 40 MG TABLET.DR. PO SCH (11:30)
[2019-06-15] MEDS ORDERED: ASPIRIN ENTERIC COATED 81 MG TABLET.DR. PO SCH (12:00)
--- NOTE | 2019-06-15 12:18 | NUR ---
Discharge Note: AMANDEEP GIORDANO Discharge instructions and discharge home medications reviewed with Patient and a copy given. All questions have been answered and understanding verbalized.
[2019-06-15] MEDS ORDERED: [UNRECOGNIZED DRUG - OTHER] SQ SCH (21:00)
[2019-06-15] MEDS ORDERED: ATORVASTATIN CALCIUM 20 MG TABLET PO SCH (21:00)
[2019-06-15] MEDS ORDERED: INSULIN GLARGINE SYRINGE. SQ SCH (21:00)
[2019-06-16] MEDS ORDERED: metFORMIN 500 MG TABLET PO SCH (17:00)
== END 2019-06-15 12:19 | disposition home or self-care (01) ==
LOC: CCL 11:05 → 2 NORTH 14:25
PROVIDERS: ADMIT Internal Medicine Cardiovascular Disease; ATTEND Internal Medicine Cardiovascular Disease
DX: I73.9 Peripheral vascular disease, unspecified (principal); E78.5 Hyperlipidemia, unspecified; I10 Essential (primary) hypertension; E11.9 Type 2 diabetes mellitus without complications; F17.200 Nicotine dependence, unspecified, uncomplicated
CPT/HCPCS: 36415; 37225; 37229; 75625; 75716; 80048; 82962; 85027; 85347; 85610; 96374; 96375; 96376; 99406; C1713; C1724; C1725; C1769; C1892; C1894; G0378; G0379; J0360; J1644; J2250; J3010; J3490; J7030; Q9967; 99152; 99153

== ENCOUNTER → 2020-09-05 | Outpatient (CLI) | payer MEDICARE ==
[2019-08-05 11:08] VITALS: BP 147/79
[~2020-09-05] MED LIST changes: +AMLO-186 PO; -AMLO5TAB10 PO; -DICL100G18 TP; +DICL100G54 TP; -GLIM4TAB4 PO; +GLIM4TAB8 PO; +HYDR12.575 PO; +LOSA-73 PO; +NAPR-514 PO; +PANT40TA77 PO; +PRAV80TA2 PO; +SEMA0.25 SQ; +SERT50TA PO
--- NOTE | 2020-09-06 10:27 | RAD ---
Bilateral lower extremity arterial duplex study 09/05/2020 CLINICAL HISTORY: Peripheral vascular disease. Left foot numbness. TECHNIQUE: Using a combination of real-time ultrasound imaging and color-flow and pulse Doppler imagi ng techniques duplex evaluation of the major arterial structures of both lower extremities was perfor med. Multiple images were obtained. FINDINGS: Mild to moderate atheromatous/atherosclerotic plaque formation is seen throughout the major arterial structures of both lower extremities. The arterial waveforms throughout the right lower ext remity are predominantly monophasic. The arterial waveforms throughout the left lower extremity are b iphasic. The peak systolic velocities throughout the right lower extremity taper normally. No hemodyn amically significant stenosis or area of occlusion is seen. A bypass graft is seen extending from the proximal left superficial femoral artery to the left popliteal artery. It is patent. The majority of the left superficial femoral artery is occluded. The peak systolic velocity within the proximal port ion of the bypass graft near the anastomosis is 172.4 cm/s. The peak systolic velocity within the mid portion of the graft measures 85.6 cm/s. The peak systolic velocity within the distal aspect of the g raft measures 117.6 cm/s. The peak systolic velocities throughout the major arterial structures of th e left lower extremity taper normally. No hemodynamically significant stenosis is seen. IMPRESSION: Mild to moderate atheromatous/atherosclerotic plaque formation is seen throughout the crystal or arterial structures of both lower extremities. A patent bypass graft is seen extending from the pr oximal left superficial femoral artery to the left popliteal artery. No hemodynamically significant s tenosis is seen. Electronically signed by: Lauri Rebollar MD (09/06/2020 10:25 AM) [id number]
== END ==
LOC: US 12:23
PROVIDERS: ATTEND Internal Medicine
DX: I73.9 Peripheral vascular disease, unspecified (principal)
CPT/HCPCS: 93925